=== PATIENT | female | born 1945 | race Caucasian/White ===

== ENCOUNTER → 2016-07-09 | Outpatient (CLI) | payer MEDICARE ==
[~2016-07-09] MED LIST: /ESOM40CA OR; ASPI325T5 PO; AVAP75TA5 OR; FOLI1TAB OR; LASI40TA OR; LEVO25TA2 OR; LORTTAB5 PO; METH2.5T OR; MOM30SS PO; PAXI20TA OR; POLYBTL PO; RESTASIS OU; SENO8.6T9 PO; SIMV10TA2 OR; SPIR25TA2 OR
[2016-07-09 18:16] LABS: BASO % 0.3 % (0.0-1.0); EOS # 0.4 K/mm3 (0.0-0.50); EOS % 5.2 % (0.0-3.0); LARGE UNSTAINED CELL # 0.2 K/mm3 (0.0-0.4); LARGE UNSTAINED CELL % 2.4 % (0.0-4.0); LYMPH # 2.3 K/mm3 (1.5-4.5); MEAN CORPUSCULAR HEMOGLOBIN 27.4 pg (27.0-33.0); MEAN CORPUSCULAR HGB CONC 33.4 g/dl (32.0-36.5); MONO # 0.5 K/mm3 (0.0-0.8); MONO % 5.5 % (0.0-5.0); NEUTROPHILS # 5.3 K/mm3 (1.8-7.7); NEUTROPHILS % 60.6 % (36.0-66.0); PLATELET COUNT, AUTOMATED 327 k/mm3 (150-450); RED CELL DISTRIBUTION WIDTH 14.1 % (11.5-14.5); WHITE BLOOD COUNT 8.7 K/mm3 (4.0-10.0)
[2016-07-09 18:45] LABS: ALBUMIN 4.2 GM/DL (3.2-5.2); CREATININE FOR GFR 0.97 MG/DL (0.55-1.02); GLOMERULAR FILTRATION RATE 59.9 (>39)
== END ==
LOC: M WUC 13:05
PROVIDERS: ATTEND Internal Medicine Rheumatology
DX: M06.09 Rheumatoid arthritis without rheumatoid factor, multiple sites (principal); Z79.899 Other long term (current) drug therapy

== ENCOUNTER → 2016-09-04 | Outpatient (CLI) | payer MEDICARE ==
--- NOTE | 2016-09-04 16:39 | REP ---
CERVICAL SPINE, EIGHT VIEWS: HISTORY: Cervicalgia. There is no acute fracture. The C4-5 through C7-T1 intervertebral discs are decreased in height consistent with disc degeneration. Osteophytes are present on C4 through 7. There is narrowing of the C4 through 6 neural foramina secondary to uncinate process hypertrophy. There are 2 mm of anterior subluxation of C3 on 4 with flexion. This is not seen in neutral or extension radiographs. IMPRESSION: Degenerative change as described above. Signed by Kodak Mendoza MD 09/04/2016 04:42 P
== END ==
LOC: M ADAMS 14:50
PROVIDERS: ATTEND Physician Assistant Medical
DX: M54.2 Cervicalgia (principal)

== ENCOUNTER → 2016-09-12 | Outpatient (REF) | payer MEDICARE ==
[2016-09-12 13:10] LABS: BASO # 0.1 K/mm3 (0.0-0.2); BASO % 0.8 % (0.0-1.0); EOS # 0.4 K/mm3 (0.0-0.50); LARGE UNSTAINED CELL # 0.1 K/mm3 (0.0-0.4); LARGE UNSTAINED CELL % 1.7 % (0.0-4.0); LYMPH # 1.6 K/mm3 (1.5-4.5); LYMPH % 19.5 % (24.0-44.0); MEAN CORPUSCULAR HEMOGLOBIN 28.1 pg (27.0-33.0); MEAN CORPUSCULAR VOLUME 82.7 fl (80.0-96.0); MONO # 0.6 K/mm3 (0.0-0.8); MONO % 7.4 % (0.0-5.0); NEUTROPHILS # 4.9 K/mm3 (1.8-7.7); NEUTROPHILS % 65.5 % (36.0-66.0); PLATELET COUNT, AUTOMATED 323 k/mm3 (150-450); RED CELL DISTRIBUTION WIDTH 15.9 % (11.5-14.5); WHITE BLOOD COUNT 7.5 K/mm3 (4.0-10.0)
[2016-09-12 13:33] LABS: VITAMIN B12 LEVEL 584 PG/ML (247-911)
[2016-09-12 13:38] LABS: ALBUMIN/GLOBULIN RATIO 1.33 (1.00-1.93); ALKALINE PHOSPHATASE 73 U/L (45-117); ALT/SGPT 36 U/L (12-78); ANION GAP 11 MEQ/L (8-16); AST/SGOT 30 U/L (15-37); BILIRUBIN,TOTAL 0.7 MG/DL (0.2-1.0); BLOOD UREA NITROGEN 22 MG/DL (7-18); CALCIUM LEVEL 9.4 MG/DL (8.8-10.2); CARBON DIOXIDE LEVEL 30 MEQ/L (21-32); CHLORIDE LEVEL 99 MEQ/L (98-107); CHOLESTEROL LEVEL 175 MG/DL (<200); CREATININE FOR GFR 0.95 MG/DL (0.55-1.02); FERRITIN 71 NG/ML (8-252); GLOMERULAR FILTRATION RATE > 60.0 (>39); GLUCOSE, FASTING 110 MG/DL (83-110); PERCENT SATURATION 27.2 % (13.2-37.4); POTASSIUM SERUM 4.4 MEQ/L (3.5-5.1); SODIUM LEVEL 140 MEQ/L (136-145); TOTAL IRON BINDING CAPACITY 371 UG/DL (250-450); TRIGLYCERIDES LEVEL 166 MG/DL (<150)
[2016-09-13 10:24] LABS: PRETREATED FOLATE FOR RBCFOL 17.9 NG/ML
== END ==
LOC: M SFHCPLAZ 09:30
PROVIDERS: ATTEND Family Medicine
DX: D50.9 Iron deficiency anemia, unspecified (principal); R73.01 Impaired fasting glucose; E03.9 Hypothyroidism, unspecified; E55.9 Vitamin D deficiency, unspecified

== ENCOUNTER 2016-09-23 10:01 | Outpatient (CLI) | payer MEDICARE ==
[~2016-09-23] VITALS: Ht 162.6 cm; Wt 80.8 kg
[2016-09-23] MEDS ORDERED: ZOLEDRONIC ACID 5 MG in APPROPRIATE DILUENT 1 EA IV ONE (10:15)
== END 2016-09-23 10:55 | disposition home or self-care (01) ==
LOC: M INFU 10:01
PROVIDERS: ATTEND Family Medicine
DX: M81.0 Age-related osteoporosis without current pathological fracture (principal); Z79.899 Other long term (current) drug therapy; Z79.01 Long term (current) use of anticoagulants
CPT/HCPCS: 96365; J3489

== ENCOUNTER → 2016-09-26 | Outpatient (CLI) | payer MEDICARE ==
[2016-09-26 17:13] LABS: ALBUMIN 3.9 GM/DL (3.2-5.2); ALT/SGPT 28 U/L (12-78); CREATININE FOR GFR 0.81 MG/DL (0.55-1.02); GLOMERULAR FILTRATION RATE > 60.0 (>39)
[2016-09-26 18:26] LABS: BASO % 0.4 % (0.0-1.0); EOS # 0.4 K/mm3 (0.0-0.50); EOS % 5.9 % (0.0-3.0); LARGE UNSTAINED CELL # 0.2 K/mm3 (0.0-0.4); LARGE UNSTAINED CELL % 2.1 % (0.0-4.0); LYMPH # 1.8 K/mm3 (1.5-4.5); LYMPH % 23.8 % (24.0-44.0); MEAN CORPUSCULAR HEMOGLOBIN 27.9 pg (27.0-33.0); MEAN CORPUSCULAR HGB CONC 33.3 g/dl (32.0-36.5); MEAN CORPUSCULAR VOLUME 83.8 fl (80.0-96.0); MONO # 0.6 K/mm3 (0.0-0.8); MONO % 7.4 % (0.0-5.0); NEUTROPHILS # 4.5 K/mm3 (1.8-7.7); NEUTROPHILS % 60.5 % (36.0-66.0); PLATELET COUNT, AUTOMATED 337 k/mm3 (150-450); RED CELL DISTRIBUTION WIDTH 16.1 % (11.5-14.5); WHITE BLOOD COUNT 7.4 K/mm3 (4.0-10.0)
== END ==
LOC: M WUC 11:04
PROVIDERS: ATTEND Internal Medicine Rheumatology
DX: M06.09 Rheumatoid arthritis without rheumatoid factor, multiple sites (principal); Z79.899 Other long term (current) drug therapy

== ENCOUNTER → 2016-10-07 | Outpatient (CLI) | payer MEDICARE, MEDICAID ==
[2016-10-10 00:08] LABS: Lyme Disease IgG/IgM Antibodie <0.91 ISR (0.00-0.90); Lyme Disease IgM Ab Quantitati <0.80 index (0.00-0.79)
== END ==
LOC: M LAB 15:49
PROVIDERS: ATTEND Internal Medicine Rheumatology
DX: R53.83 Other fatigue (principal)

== ENCOUNTER → 2016-10-28 | Outpatient (CLI) | payer MEDICARE, MEDICAID ==
[2016-10-28 17:20] LABS: BASO % 0.3 % (0.0-1.0); EOS # 0.5 K/mm3 (0.0-0.50); EOS % 7.9 % (0.0-3.0); LARGE UNSTAINED CELL # 0.1 K/mm3 (0.0-0.4); LARGE UNSTAINED CELL % 2.1 % (0.0-4.0); LYMPH # 1.9 K/mm3 (1.5-4.5); LYMPH % 28.6 % (24.0-44.0); MEAN CORPUSCULAR HEMOGLOBIN 28.7 pg (27.0-33.0); MEAN CORPUSCULAR VOLUME 84.6 fl (80.0-96.0); MONO # 0.4 K/mm3 (0.0-0.8); MONO % 5.7 % (0.0-5.0); NEUTROPHILS # 3.6 K/mm3 (1.8-7.7); NEUTROPHILS % 55.4 % (36.0-66.0); PLATELET COUNT, AUTOMATED 317 k/mm3 (150-450); RED CELL DISTRIBUTION WIDTH 15.8 % (11.5-14.5); WHITE BLOOD COUNT 6.5 K/mm3 (4.0-10.0)
[2016-10-28 19:22] LABS: ALBUMIN 3.5 GM/DL (3.2-5.2); ALT/SGPT 22 U/L (12-78); GLOMERULAR FILTRATION RATE > 60.0 (>39)
== END ==
LOC: M WUC 14:23
PROVIDERS: ATTEND Internal Medicine Rheumatology
DX: M06.09 Rheumatoid arthritis without rheumatoid factor, multiple sites (principal); Z79.899 Other long term (current) drug therapy

== ENCOUNTER → 2017-01-13 | Outpatient (CLI) | payer MEDICARE, MEDICAID ==
[~2017-01-13] MED LIST changes: +ASPI1TAB PO; +CALCTAB68 PO; +COUM2.5T17 PO; +LEVO100T5 PO; +MOME50SP; +PERC5TAB12 PO; +PROT1TAB2 PO; +SYST1SOL OU; +VOLT1GEL15 TOP
[2017-01-13 20:03] LABS: ALBUMIN 3.6 GM/DL (3.2-5.2); ALT/SGPT 28 U/L (12-78); CREATININE FOR GFR 0.95 MG/DL (0.55-1.02); GLOMERULAR FILTRATION RATE > 60.0 (>39)
[2017-01-13 20:08] LABS: BASO % 0.5 % (0.0-1.0); EOS # 0.2 K/mm3 (0.0-0.50); EOS % 3.1 % (0.0-3.0); LARGE UNSTAINED CELL # 0.1 K/mm3 (0.0-0.4); LARGE UNSTAINED CELL % 1.7 % (0.0-4.0); LYMPH % 22.3 % (24.0-44.0); MEAN CORPUSCULAR HEMOGLOBIN 28.9 pg (27.0-33.0); MEAN CORPUSCULAR HGB CONC 33.5 g/dl (32.0-36.5); MEAN CORPUSCULAR VOLUME 86.1 fl (80.0-96.0); MONO # 0.8 K/mm3 (0.0-0.8); MONO % 9.3 % (0.0-5.0); NEUTROPHILS # 5.2 K/mm3 (1.8-7.7); NEUTROPHILS % 63.1 % (36.0-66.0); PLATELET COUNT, AUTOMATED 351 k/mm3 (150-450); RED CELL DISTRIBUTION WIDTH 15.4 % (11.5-14.5); WHITE BLOOD COUNT 8.3 K/mm3 (4.0-10.0)
== END ==
LOC: M WUC 15:52
PROVIDERS: ATTEND Internal Medicine Rheumatology
DX: M06.09 Rheumatoid arthritis without rheumatoid factor, multiple sites (principal); Z79.899 Other long term (current) drug therapy

== ENCOUNTER → 2017-01-30 | Outpatient (REF) | payer MEDICARE, MEDICAID ==
[2017-01-30 14:15] LABS: BASO # 0.1 K/mm3 (0.0-0.2); BASO % 0.7 % (0.0-1.0); EOS # 0.3 K/mm3 (0.0-0.50); EOS % 3.7 % (0.0-3.0); LARGE UNSTAINED CELL # 0.1 K/mm3 (0.0-0.4); LARGE UNSTAINED CELL % 1.7 % (0.0-4.0); LYMPH % 23.3 % (24.0-44.0); MEAN CORPUSCULAR HEMOGLOBIN 28.4 pg (27.0-33.0); MEAN CORPUSCULAR HGB CONC 33.2 g/dl (32.0-36.5); MEAN CORPUSCULAR VOLUME 85.4 fl (80.0-96.0); MONO # 0.6 K/mm3 (0.0-0.8); NEUTROPHILS # 5.1 K/mm3 (1.8-7.7); NEUTROPHILS % 63.7 % (36.0-66.0); PLATELET COUNT, AUTOMATED 335 k/mm3 (150-450); RED CELL DISTRIBUTION WIDTH 15.2 % (11.5-14.5)
[2017-01-30 15:09] LABS: ALBUMIN 3.9 GM/DL (3.2-5.2); ALBUMIN/GLOBULIN RATIO 1.22 (1.00-1.93); ALKALINE PHOSPHATASE 65 U/L (45-117); ALT/SGPT 27 U/L (12-78); ANION GAP 9 MEQ/L (8-16); AST/SGOT 17 U/L (15-37); BILIRUBIN,TOTAL 0.7 MG/DL (0.2-1.0); BLOOD UREA NITROGEN 19 MG/DL (7-18); CARBON DIOXIDE LEVEL 28 MEQ/L (21-32); CHLORIDE LEVEL 96 MEQ/L (98-107); CREATININE FOR GFR 0.83 MG/DL (0.55-1.02); FREE T4 1.54 NG/DL (0.76-1.46); GLOMERULAR FILTRATION RATE > 60.0 (>39); GLUCOSE, FASTING 77 MG/DL (83-110); POTASSIUM SERUM 4.9 MEQ/L (3.5-5.1); SODIUM LEVEL 133 MEQ/L (136-145); TOTAL PROTEIN 7.1 GM/DL (6.4-8.2)
== END ==
LOC: M SFHCPLAZ 12:54
PROVIDERS: ATTEND Family Medicine
DX: R73.01 Impaired fasting glucose (principal); E03.9 Hypothyroidism, unspecified

== ENCOUNTER → 2017-02-06 | Outpatient (REF) | payer MEDICARE, MEDICAID | LOC: M SFHCPLAZ 13:27 | PROVIDERS: ATTEND Family Medicine | DX: N39.0 Urinary tract infection, site not specified (principal) | CPT/HCPCS: 81001; 87086; G0463 ==

== ENCOUNTER → 2017-02-12 | Outpatient (CLI) | payer MEDICARE, MEDICAID ==
--- NOTE | 2017-02-12 16:17 | REP ---
ULTRASOUND URINARY BLADDER: Real-time sonographic evaluation of the urinary bladder performed. The bladder measures 6.4 x 7.7 x 5.5 cm for a total volume of 177 mL. No mass or calculus is seen. There are bilateral ureteral jets in the urinary bladder with Doppler color evaluation. Postvoid residual is 38 mL which is 21% of the original volume. IMPRESSION: Prevoid urinary bladder volume 177 mL, postvoid 38 mL, 21% postvoid residual. No mass or calculus. Signed by Brent Garza MD 02/13/2017 01:27 P
== END ==
LOC: M RAD 13:42
PROVIDERS: ATTEND Family Medicine
DX: R35.0 Frequency of micturition (principal)

== ENCOUNTER → 2017-04-17 | Outpatient (CLI) | payer MEDICARE, MEDICAID ==
--- NOTE | 2017-04-17 11:55 | ECGEPIP ---
Stationary ECG Study [facility] Test Date: 2017-04-17 Pat Name: CLAY RODRÍGUEZ Department: Room: - Gender: F Consumer Credit Counselor: LUISA : 1945 Requested By: Alexei Alegre Order Number: [id number] Reading MD: Priscilla Benedict Measurements Intervals [place] Rate: 78 P: 28 SC: 205 QRS: -24 QRSD: 122 T: 61 QT: 390 QTc: 447 Interpretive Statements SINUS RHYTHM first degree block NEW LAE LEFT AXIS DEVIATION MODERATE INTRAVENTRICULAR CONDUCTION DELAY NONSPECIFIC ST T-WAVE ABNORMALITY COMPARED TO 01/28/13 Electronically Signed On 04-17-2017 11:54:51 EDT by Priscilla Benedict
[2017-04-17 12:04] LABS: MEAN CORPUSCULAR HEMOGLOBIN 27.9 pg (27.0-33.0); MEAN CORPUSCULAR HGB CONC 33.7 g/dl (32.0-36.5); MEAN CORPUSCULAR VOLUME 82.8 fl (80.0-96.0); RED CELL DISTRIBUTION WIDTH 15.4 % (11.5-14.5); WHITE BLOOD COUNT 9.5 10^3/uL (4.0-10.0)
[2017-04-17 12:18] LABS: INR 1.01
--- NOTE | 2017-04-17 12:32 | REP ---
Chest two views HISTORY: Preop Comparison: 04/04/2016 A minimal increase in interstitial markings is present in the lungs consistent with chronic interstitial fibrosis. The cardiac silhouette is enlarged. The pulmonary vasculature is normal in appearance. There are old compression fractures of two lower thoracic vertebral bodies. IMPRESSION: 1. Chronic interstitial fibrosis. 2. Cardiomegaly. Signed by Kodak Mendoza MD 04/17/2017 12:23 P
[2017-04-17 12:40] LABS: ALBUMIN 4.2 GM/DL (3.2-5.2); ALBUMIN/GLOBULIN RATIO 1.17 (1.00-1.93); ALKALINE PHOSPHATASE 71 U/L (45-117); ALT/SGPT 35 U/L (12-78); ANION GAP 6 MEQ/L (8-16); AST/SGOT 27 U/L (15-37); BILIRUBIN,TOTAL 0.9 MG/DL (0.2-1.0); BLOOD UREA NITROGEN 23 MG/DL (7-18); CALCIUM LEVEL 9.4 MG/DL (8.8-10.2); CARBON DIOXIDE LEVEL 31 MEQ/L (21-32); CHLORIDE LEVEL 99 MEQ/L (98-107); CREATININE FOR GFR 0.92 MG/DL (0.55-1.02); GLOMERULAR FILTRATION RATE > 60.0 (>39); GLUCOSE, FASTING 89 MG/DL (83-110); POTASSIUM SERUM 4.4 MEQ/L (3.5-5.1); SODIUM LEVEL 136 MEQ/L (136-145); TOTAL PROTEIN 7.8 GM/DL (6.4-8.2)
== END ==
LOC: M ADMPAT 10:17
PROVIDERS: ATTEND Orthopaedic Surgery
DX: Z01.818 Encounter for other preprocedural examination (principal); M17.11 Unilateral primary osteoarthritis, right knee; I51.7 Cardiomegaly; J84.10 Pulmonary fibrosis, unspecified; R94.31 Abnormal electrocardiogram [ECG] [EKG]; Z79.01 Long term (current) use of anticoagulants; Z96.9 Presence of functional implant, unspecified; Z98.890 Other specified postprocedural states; Z79.899 Other long term (current) drug therapy

== ENCOUNTER 2017-04-28 09:25 | Inpatient (IN) | payer MEDICARE, MEDICAID ==
[2017-04-17 11:22] VITALS: BP 104/70
[2017-04-28] VITALS (8 sets, daily range): BP systolic 115–138; BP diastolic 68–83; O2SAT 94–99
[~2017-04-28] VITALS: Ht 162.6 cm; Wt 77.6 kg
--- NOTE | 2017-04-28 08:28 | HPE ---
DATE OF ADMISSION: 04/28/2017 HISTORY OF PRESENT ILLNESS: This is a pleasant female with continuing symptomatic right knee osteoarthritis. She consented for a right total knee arthroplasty per Dr. Alexei Alegre. Medical optimization was performed by Dr. Shah, which we are still awaiting a clearance note, although the patient states she was optimized. X-ray is consistent with advanced osteoarthritis. ALLERGIES: Hay fever. MEDICATIONS: - methotrexate 2.5 mg - folic acid 1 mg. - aspirin 81 mg - Paxil 20 mg - Lasix 40 mg - Avapro 75 mg - calcium 600-D 600, 400 mg units - Reclast 5/100 mL - Xanax 0.25 mg - Zocor 10 mg - Drisdol 50,000 units - Nasonex 50 mcg/HCT - Astepro 0.15% - Colace 100 mg - MiraLAX 3350 NF - levothyroxine sodium 100 mcg - Prevacid 30 mg - Protonix 40 mg MEDICAL PROBLEM LIST: Symptomatic right knee osteoarthritis. Essential hypertension Hypercholesterolemia Aortic valve disorder Dilation of aorta Obstructive sleep apnea Anxiety Depression Thyroid disease SOCIAL HISTORY: Left foot Cholecystectomy Right and left knees FAMILY HISTORY: Positive for hypertension, cancer, heart disease. SOCIAL HISTORY: Denies smoking. Rarely consumes alcohol, may be a glass of wine in the evening. Denies elicit drugs. REVIEW OF SYSTEMS: Denies chest pain shortness of breath, dyspnea on exertion, fever, chills, malaise, upper respiratory, urinary tract symptoms. PHYSICAL EXAMINATION: Height 5 foot 2 inches, weight 170, temperature 97.6, blood pressure 122/74, pulse 72, respirations 16. This a pleasant overweight female in no acute distress. She is alert and oriented times three. Mood and affect are appropriate. She is ambulating without overt antalgia. Noted favoring the left lower extremity. Right knee positive lateral joint line tenderness with crepitus about the knee through flexion and extension. PFJ is congruent static and dynamic. She is stable throughout the quad collateral ligaments of the patella, the quad tendons without palpable defects. No popliteal fossa mass. Right hip range of motion was not limited or irritable through internal and external range of motion. Bowel sounds times four are soft, nontender. Chest regular rate and rhythm. Lungs clear to auscultation. Chest rises symmetrically. Neck supple. Negative jugular venous distention or bruits. Normocephalic. Chest x-ray: Chronic interstitial fibrosis. Cardiomegaly. As read via [facility] by Dr. Mnedoza 04/17/2017. EKG: Sinus rhythm, first degree AV block. New left axis deviation, moderate intraventricular conduction delay, nonspecific ST/T wave abnormality as read by Dr. Farrell 04/17/2017. Nasal sinus cultures were unremarkable. LABS: Leukocyte esterase urine auto 1+, WBC urine auto 11, BUN 23, anion gap 6. Red cell distribution was 15.4. GFR greater than 60, otherwise labs within normal limits. IMPRESSION: 1. Symptomatic right knee osteoarthritis. 2. Patient consented for right total knee arthroplasty per Dr. Alexei Alegre. 3. Medical optimization with Dr. Shah, which are awaiting his note. 4. On-call to operative room 2 grams IV Kefzol in OR. 5. Sequential compression devices (SCDs) and thromboembolic deterrent stockings (TEDS) in OR. 6. Consent is up to date. [facility]
[2017-04-28] MEDS: IRBESARTAN 75MG TABLET PO SCH (09:00)
[2017-04-28] MEDS: FOLIC ACID 1 MG TAB PO SCH (09:00)
[~2017-04-28 09:25] MED LIST changes: -COUM2.5T17 PO; -PERC5TAB12 PO
[2017-04-28] MEDS ORDERED: LR 1,000 ML IV ONE (09:45)
[2017-04-28] MEDS ORDERED: LIDOCAINE 1% MDV 20ML VIAL SC PRN (09:45)
[2017-04-28] MEDS ORDERED: fentaNYL 100 MCG/2 ML INJECTION (J3010) As Ordered ONE ×2 (11:05→11:08)
[2017-04-28] MEDS ORDERED: MIDAZOLAM INJ 2 MG/2 ML VIAL (J2250) As Ordered ONE ×2 (11:05→11:09)
[2017-04-28] MEDS ORDERED: LIDOCAINE 2% INJ 100 MG/5 ML SDV (FOR ANES.) As Ordered ONE (11:08)
[2017-04-28] MEDS ORDERED: PROPOFOL 200 MG/20 ML VIAL As Ordered ONE (11:08)
[2017-04-28] MEDS ORDERED: dexameTHASONE 4 MG/ML 1ML VIAL (J1100) As Ordered ONE (11:09)
[2017-04-28] MEDS ORDERED: ONDANSETRON 4MG/2ML VIAL (J2405) As Ordered ONE (11:09)
[2017-04-28] MEDS: MIDAZOLAM INJ 2 MG/2 ML VIAL (J2250) IV PRN ×2 (11:35→11:38)
[2017-04-28] MEDS: fentaNYL 100 MCG/2 ML INJECTION (J3010) IV PRN ×2 (11:35→11:40)
[2017-04-28] MEDS ORDERED: TRANEXAMIC ACID 100 MG/ML 10ML VIAL As Ordered ONE (12:17)
[2017-04-28] MEDS ORDERED: ceFAZolin 1GM INJ (J0690) As Ordered ONE (12:17)
[2017-04-28] MEDS ORDERED: BUPIVACAINE LIPOSOME/PF 1.3% 20 ML VIAL (13.3MG/ML)(EXPAREL) As Ordered ONE (12:18)
[2017-04-28] MEDS ORDERED: EPINEPHrine INJ 1 MG/ML 1ML AMP As Ordered ONE (12:18)
--- NOTE | 2017-04-28 12:32 | IPN ---
DATE: 04/28/2017 The patient is seen and examined. She wished to go ahead with a right total knee arthroplasty. Preoperative clearance was obtained. She understands the nature of this; the risks of bleeding, infection, damage to nerves, vessels, persistent pain, wear loosening, blood clots, medical problems, among others.
[2017-04-28] MEDS ORDERED: ROPIvacaine 0.5% 30 ML INJECTION (J2795) ONE (13:33)
[2017-04-28] MEDS ORDERED: LIDOCAINE 1% MDV 20ML VIAL ONE (13:33)
[2017-04-28] MEDS ORDERED: dexameTHASONE 10 MG/1 ML VIAL PRES.FREE (J1100) ONE (13:33)
[2017-04-28] MEDS ORDERED: PHENYLephrine HCL 500 MCG/5 ML (100MCG/ML) SYRINGE (J2370) As Ordered ONE (13:34)
[2017-04-28] MEDS ORDERED: MORPHINE 1MG/ML IN 0.9% NACL 100ML IV BAG As Ordered ONE (14:21)
[2017-04-28] MEDS ORDERED: ONDANSETRON 4MG/2ML VIAL (J2405) IV PRN ×3 (15:00→15:15)
[2017-04-28] MEDS ORDERED: fentaNYL 100 MCG/2 ML INJECTION (J3010) IV PRN (15:00)
[2017-04-28] MEDS ORDERED: LR 1,000 ML IV SCH ×2 (15:00)
[2017-04-28] MEDS ORDERED: NALBUPHINE HCL 10 MG/ML AMP (J2300) IV PRN (15:15)
[2017-04-28] MEDS ORDERED: MORPHINE 1MG/ML IN 0.9% NACL 100ML IV BAG IV PRN (15:15)
[2017-04-28] MEDS ORDERED: ACETAMINOPHEN TAB 650MG DOSE (2X325MG) PO PRN (15:15)
[2017-04-28] MEDS ORDERED: FLEET ENEMA PR PRN (15:15)
[2017-04-28] MEDS ORDERED: EPIDURAL/PCA KEYS XX PRN (15:15)
[2017-04-28] MEDS ORDERED: NALOXONE INJ 0.4 MG/1 ML VIAL (J2310) IV PRN (15:15)
[2017-04-28] MEDS ORDERED: diphenhydrAMINE INJ 50MG/ML VIAL (J1200) IV PRN (15:15)
--- NOTE | 2017-04-28 16:33 | RO ---
DATE OF PROCEDURE: 04/28/2017 PREOPERATIVE DIAGNOSIS: Right knee osteoarthritis. POSTOPERATIVE DIAGNOSIS: Right total knee arthroplasty using PFC rotating platform, posterior stabilized size three femur, 2.5 tibia and 12.5 polyethylene with 32 patellar button. SURGEON: Alexei Alegre MD WELDER FITTER HELPER: Michael Ross ANESTHESIA: Spinal ESTIMATED BLOOD LOSS: Less than 50. COMPLICATIONS: None. INDICATION: 72-year woman has had some persistent gradually worsening right knee pain with some valgus alignment. She has been refractory to conservative management and wished to go ahead with surgical treatment. She understood the nature this the risks of bleeding, infection, damage to nerves, vessels, persistent pain, wear, loosening, blood clots, medical problems, among others. DESCRIPTION OF PROCEDURE: The patient taken to the operating room and placed in supine position after spinal anesthesia was induced. The right lower extremity was prepped and draped in the usual sterile fashion. A tourniquet was inflated after the time out was performed and I created a longitudinal incision over the anterior aspect of the knee. Sharp dissection was carried out through the medial parapatellar retinaculum. I everted the patella, flexed the knee, used the canal initiating reamer on the femoral side then set the guide at 7 degrees of valgus, 10 mm cut and pinned this in place on the end of the femur. The dietitian assistant made the distal femoral cut which seemed to be appropriate. I protected the soft tissues at all times. I sized the femur to be a 3, the external rotation guide was placed and pinned, then the four-in-one cutting block was placed. This was secured down and the remaining four cuts were made protecting soft tissues. I then placed the tibial alignment guide and the appropriate of valgus and posterior slope, pinned this in place at about 8 mm off of the high side, which seemed to be an appropriate cut. I then pinned this, checked with the external alignment guide and was happy with the alignment and made the proximal tibia cut removing excess bone. I also removed soft tissue and osteophytes from either side of the knee. The femoral box cutting guide, size three was then placed. I elected to use a posterior stabilizer because her valgus alignment and it allows for easier tissue balancing. The size 3 box cutting device was pinned in place. The remaining cuts were made and this bone was removed from the box. I then sized the tibia to be at 2.5. This was drilled and broached and then the trial components were placed and overall excellent fit and alignment were noted. Excellent range of motion was noted. Full extension was obtained. I had also used the spacer blocks prior to that and was very happy with the soft tissue balance. I then freehand cut the patella removing about 7 mm of bone, sizing it to be a 32. The drill holes were placed. The trial button was placed. I put the knee through a range of motion with the 12.5 polyethylene and was very pleased with the alignment and position of the components and range of motion. I then removed the trial components. The dietitian assistant prepared the bone cement in the modern technique. I irrigated the bony surfaces copiously and then cemented in the tibial tray, followed by the femur and then the polyethylene was placed. I removed all the excess bone cement and I made sure that the components were impacted nicely. I then clamped on the patella and held this in place until the cement hardened. I had irrigated multiple times prior to this and irrigated before placing the components and dried the bony surfaces carefully. Again irrigated now, also had placed the Exparel solution, injected it into the periosteum and into the capsule and extensor mechanism. Some just prior to placement of the components and the rest of it afterwards. Final irrigation was performed of the deep tissues. TXA solution was placed. I then closed the deep layer with interrupted #1 Vicryl sutures, followed by the running Stratafix #1 suture and this was started in the midpoint and we worked our way in both directions. The subcu was closed with #2-0 Vicryl and the skin with jassi. Sterile dressing was applied. Tourniquet was deflated and she was taken to recovery in stable condition. No known complications. PLAN: The plan will be routine postop for a knee replacement. The dietitian assistant was instrumental in holding retractors, making one of the bone cuts and assisting in wound closure.
[2017-04-28] MEDS ORDERED: WARFARIN SOD 5 MG TAB PO ONE (17:00)
[2017-04-28] MEDS: FUROSEMIDE 40 MG TAB PO SCH (17:00)
[2017-04-28] MEDS: SIMVASTATIN 10 MG TAB PO SCH (21:23)
[2017-04-28] MEDS: PANTOPRAZOLE 40MG TAB (PROTONIX) PO SCH (21:23)
--- NOTE | 2017-04-28 23:49 | CR.PDOC ---
[facility] Consultation Consultation DATE OF CONSULTATION: 04/28/2017 PRIMARY CARE PHYSICIAN: Dr. Shah REFERRING PROVIDER: Dr. Alexei Alegre REASON FOR CONSULTATION/CHIEF COMPLAINT: Medical management. HISTORY OF PRESENT ILLNESS: This is a 72-year-old female with a past medical history of symptomatic right knee osteoarthritis, hypertension, hypercholesterolemia, BE, depression and anxiety, hypothyroidism, rheumatoid arthritis, chronic diastolic heart failure, GERD. Patient had a total right knee arthroplasty on 04/28/[address] Alexei Alegre. Patient was seen after surgery on the medical unit. Patient's pain was well-controlled. She had no medical concerns at the time. Patient was ready to order dinner. She brought her CPAP for use at night. ALLERGIES: Please see below. HOME MEDICATIONS: Please see below. PAST MEDICAL HISTORY: osteoarthritis, hypertension, hypercholesterolemia, BE, depression, anxiety, hypothyroidism, rheumatoid arthritis, chronic diastolic heart failure, GERD. PAST SURGICAL HISTORY: cholecystectomy in 1997, right knee arthroscopy 2010, left knee arthroscopy 2015 , both eyes cataract 2015, left ankle fracture repair 2012 FAMILY HISTORY: Father: 71 years, prostate cancer Mother: 30 years, heart disease Siblings: Alive 71 years, heart disease SOCIAL HISTORY: Marital status: Children: 3 Tobacco use:Nonsmoker ETOH: Occasional Illicit drug use: Denies drug use IV drug use: Denies drug use REVIEW OF SYSTEMS: CONSTITUTIONAL: Denies fevers, chills. HEENT: Denies head trauma, pain. CARDIOVASCULAR: Denies chest pain, palpitations. RESPIRATORY: Denies dyspnea, shortness of breath. GENITOURINARY: Denies dysuria, incontinence. MUSCULOSKELETAL: History of osteoarthritis, rheumatoid arthritis. GASTROINTESTINAL: Denies abdominal pain. SKIN: Denies rashes. NEUROLOGICAL: No numbness or weakness. PSYCHIATRIC: History of depression and anxiety. ENDOCRINE: History of hypothyroidism. HEMATOLOGIC/LYMPHATIC: No abnormal bleeding or bruising. PHYSICAL EXAMINATION: VITAL SIGNS: Please see below. GENERAL APPEARANCE:Sitting upright in hospital bed, in no acute distress. HEENT: Head: normocephalic, atraumatic. Eyes: EOMI. Throat: Mucous membranes are moist RESPIRATORY: Clear to auscultation bilaterally. No wheezes CARDIOVASCULAR: Regular rate and rhythm, no murmurs appreciated. ABDOMEN: Normal active bowel sounds, nontender EXTREMITIES: Right knee surgical incision intact, dressing is dry. 2+ pedal pulses bilaterally NEUROLOGICAL: No deficits. PSYCHIATRIC: No depression/anxiety. LABORATORY DATA: Please see below. ASSESSMENT/PLAN: 1. Postoperative right total knee arthroplasty, performed by Dr. Alexei Alegre on 04/28/2017. Pain management, rehabilitation, and bowel regimen will be managed by orthopedic surgery. 2. Chronic diastolic congestive heart failure. We'll continue home blood pressure medications with holding parameters. 3. Depression/anxiety. Continue patient on paroxetine. 4. Hypothyroidism. Continue patient on L-thyroxine 5. GERD. Continue patient on Protonix. 6. Rheumatoid arthritis. Patient receives methotrexate on Tuesdays. 7. BE. Continue patient on CPAP at night. 8. Hypercholesterolemia. Continue patient on Simvastatin. Vital Signs/I&O Vital Signs Date Time Temp Pulse Resp B/P (MAP) Pulse Ox O2 Delivery O2 Flow Rate FiO2 04/28/17 15:45 97.0 83 16 126/65 (85) 99 Nasal Cannula 2 I&O- Last 24 Hours up to 6 AM 04/29/17 05:59 Intake Total 1760 ml Output Total 350 ml Balance 1410 ml Allergies Coded Allergies: No Known Drug Allergy (Verified Allergy, Unknown, 04/28/17) Home Medications Scheduled Aspirin (Aspirin 81) 81 Mg Tab, 81 MG PO DAILY, #30 (Reported) Calcium/Vitamin D (Calcium 600 + D 600-400 mg-Unit) 1 Tab Tab, 1 TAB PO DAILY, ( Reported) Docusate Sod/Senna (Senokot S) 1 Tab Tab, 1 TAB PO BID, (Reported) Folic Acid (Folic Acid) 1 Mg Tab, 1 MG OR DAILY, (Reported) Furosemide (Lasix) 40 Mg Tab, 40 MG OR BID, (Reported) Irbesartan (Avapro) 75 Mg Tab, 75 MG OR DAILY, (Reported) Levothyroxine Sodium (Synthroid) 100 Mcg Tab, 100 MCG PO DAILY, (Reported) Methotrexate (Methotrexate) 2.5 Mg Tab, 15 MG OR 1XWK, #9 (Reported) friday Pantoprazole Sodium Sesquihydr (Protonix) 40 Mg Tab, 40 MG PO BID, #30 (Reported ) Paroxetine (Paxil) 20 Mg Tab, 20 MG OR DAILY, (Reported) Simvastatin (Simvastatin) 10 Mg Tab, 10 MG OR QHS, (Reported) Spironolactone (Spironolactone) 25 Mg Tab, 25 MG OR DAILY, (Reported) Scheduled PRN (Voltaren) 1 % Gel, 1 % TOP PRN PRN for PAIN, (Reported) Mometasone Furoate Monohydrate (Nasonex) 120 [place]/17 Gm Naspr, 1 SPRAY NA PRN PRN for NASAL CONGESTION, (Reported) Polyethylene Glycol (Miralax Powder Oral Soln) 255 Gm Pow, 1 PKT PO DAILYPRN PRN for CONSTIPATION, (Reported) Polyethylene Glycol (Systane 0.4-0.3 %) 15 Ml Erica, 1 DROP OU PRN PRN for DRY EYES, (Reported) GME ATTESTATION GME ATTESTATION My preceptor for this patient encounter was physically present in the building during the encounter and was fully available. As needed, all aspects of the patient interview, examination, medical decision making process, and medical care plan development were reviewed and approved by the preceptor. Preceptor is aware and concurs with the plan as stated in the body of this note and will attest to such by his/her cosignature. ATTENDING NOTE Patient was seen and examined in the evening of 04/28/17; she offered no complaints. The case was discussed with Dr. Granger and I agree with his note as documented. (KES) SILVIA GRANGER DO Apr 28, 2017 17:31 KAYLYNN ALONZO MD Apr 29, 2017 10:53
[2017-04-29] VITALS (8 sets, daily range): BP systolic 99–118; BP diastolic 56–70; O2SAT 92
[2017-04-29] MEDS: LEVOTHYROXINE 100MCG TABLET (0.1MG) PO SCH (05:05)
[2017-04-29] MEDS ORDERED: ONDANSETRON 4 MG TAB (S0181) PO PRN (06:45)
[2017-04-29 06:54] LABS: MEAN CORPUSCULAR HEMOGLOBIN 27.9 pg (27.0-33.0); MEAN CORPUSCULAR HGB CONC 33.1 g/dl (32.0-36.5); MEAN CORPUSCULAR VOLUME 84.4 fl (80.0-96.0); PLATELET COUNT, AUTOMATED 272 10^3/uL (150-450); RED CELL DISTRIBUTION WIDTH 15.1 % (11.5-14.5); WHITE BLOOD COUNT 15.4 10^3/uL (4.0-10.0)
[2017-04-29 07:08] LABS: INR 1.17
[2017-04-29] MEDS: MIRALAX *UNIT DOSE* 17GM PACKET PO SCH (08:18)
[2017-04-29] MEDS: PANTOPRAZOLE 40MG TAB (PROTONIX) PO SCH ×2 (08:19→21:17)
[2017-04-29] MEDS: MOM 30ML SUSPENSION UDC PO SCH (08:19)
[2017-04-29] MEDS: PERCOCET 5MG/325MG TAB PO PRN ×4 (08:19→21:18)
[2017-04-29] MEDS: IRBESARTAN 75MG TABLET PO SCH (08:19)
[2017-04-29] MEDS: FOLIC ACID 1 MG TAB PO SCH (08:20)
[2017-04-29] MEDS: PARoxetine 20 MG TAB PO SCH (08:20)
[2017-04-29] MEDS: SENOKOT S TAB PO SCH ×2 (08:20→21:17)
[2017-04-29] MEDS: FUROSEMIDE 40 MG TAB PO SCH ×2 (08:20→17:07)
--- NOTE | 2017-04-29 10:49 | REP ---
RIGHT KNEE, TWO VIEWS: Two views of the right knee are performed. There is a total knee prosthesis. It appears to be in good position. The osseous structures are intact. Metallic skin jassi are seen anteriorly. Signed by Brent Garza MD 04/30/2017 04:24 P
--- NOTE | 2017-04-29 10:51 | IPNPDOC ---
Subjective Date Seen The patient was seen on 04/29/17. Subjective Chief Complaint/HPI The patient is a 72-year-old female admitted with a reason for visit of Right Knee Arthritis. Assessment /Plan Problems (1) Osteoarthritis of right knee Problem Text: pain and treatment managed by Orthopedics. (2) Depression Status: Chronic Response to Treatment: Stable (3) Diastolic CHF Status: Chronic Response to Treatment: Stable Problem Specific Plan: Monitor Clinically (4) Hypothyroidism Status: Chronic Response to Treatment: Stable Problem Specific Plan: Monitor Clinically (5) GERD (gastroesophageal reflux disease) Status: Chronic Response to Treatment: Stable Problem Specific Plan: Monitor Clinically (6) Rheumatoid arthritis Status: Chronic Response to Treatment: Stable Problem Specific Plan: Monitor Clinically (7) BE (obstructive sleep apnea) Status: Chronic Response to Treatment: Stable Problem Specific Plan: Monitor Clinically (8) Hyperlipidemia Status: Chronic Response to Treatment: Stable Problem Specific Plan: Monitor Clinically Plan/VTE VTE Prophylaxis Ordered?: Yes (Warfarin per Ortho) VS, I&O, 24H, Fishbone Vital Signs/I&O Vital Signs Date Time Temp Pulse Resp B/P (MAP) Pulse Ox O2 Delivery O2 Flow Rate FiO2 04/29/17 09:46 20 04/29/17 08:19 112/67 04/29/17 04:30 97.2 81 95 Nasal Cannula 2.0 I&O- Last 24 Hours up to 6 AM 04/30/17 05:59 Intake Total 820 ml Output Total 500 ml Balance 320 ml Laboratory Data 24H LABS Laboratory Tests 2 04/29/17 06:25: Nucleated Red Blood Cells % (auto) 0.0, Prothrombin Time 15.1H, Prothromb Time International Ratio 1.17 CBC/BMP Laboratory Tests 04/29/17 06:25 Red Blood Count 4.37, Mean Corpuscular Volume 84.4, Mean Corpuscular Hemoglobin 27.9, Mean Corpuscular Hemoglobin Concent 33.1, Red Cell Distribution Width 15.1 H Kat Gleason RESEARCH HYDRAULIC ENGINEER Apr 29, 2017 10:51
[2017-04-29] MEDS ORDERED: WARFARIN SOD 5 MG TAB PO ONE (17:00)
[2017-04-29] MEDS: SIMVASTATIN 10 MG TAB PO SCH (21:17)
[2017-04-30] MEDS: PERCOCET 5MG/325MG TAB PO PRN ×3 (01:28→13:49)
[2017-04-30 06:00] VITALS: BP 116/64
[2017-04-30] MEDS: LEVOTHYROXINE 100MCG TABLET (0.1MG) PO SCH (06:04)
[2017-04-30 06:58] LABS: MEAN CORPUSCULAR HEMOGLOBIN 27.8 pg (27.0-33.0); MEAN CORPUSCULAR HGB CONC 32.5 g/dl (32.0-36.5); MEAN CORPUSCULAR VOLUME 85.6 fl (80.0-96.0); PLATELET COUNT, AUTOMATED 262 10^3/uL (150-450); RED CELL DISTRIBUTION WIDTH 15.4 % (11.5-14.5); WHITE BLOOD COUNT 9.7 10^3/uL (4.0-10.0)
[2017-04-30 07:08] LABS: INR 1.78
[2017-04-30] MEDS ORDERED: PERC5TAB12 PO (08:12)
[2017-04-30] MEDS ORDERED: COUM2.5T17 PO (08:12)
[2017-04-30] MEDS: MIRALAX *UNIT DOSE* 17GM PACKET PO SCH (08:18)
[2017-04-30] MEDS: FOLIC ACID 1 MG TAB PO SCH (08:19)
[2017-04-30] MEDS: MOM 30ML SUSPENSION UDC PO SCH (08:19)
[2017-04-30 08:20] VITALS: BP 116/64
[2017-04-30] MEDS: PARoxetine 20 MG TAB PO SCH (08:20)
[2017-04-30] MEDS: IRBESARTAN 75MG TABLET PO SCH (08:20)
[2017-04-30] MEDS: FUROSEMIDE 40 MG TAB PO SCH (08:20)
[2017-04-30] MEDS: SENOKOT S TAB PO SCH (08:20)
[2017-04-30] MEDS: PANTOPRAZOLE 40MG TAB (PROTONIX) PO SCH (08:21)
--- NOTE | 2017-05-05 15:40 | DSES ---
DATE OF ADMISSION: 04/28/2017 DATE OF DISCHARGE: 04/30/2017 ATTENDING PHYSICIAN: Dr. Alexei Alegre ADMISSION DIAGNOSIS: Osteoarthritis, right knee. OTHER DIAGNOSES: 1. Rheumatoid arthritis. 2. Diastolic congestive heart failure. 3. Hypertension. 4. Gastric reflux disease. 5. Elevated cholesterol. 6. Aortic valve disorder. 7. Dilation of the aorta. 8. Sleep apnea. 9. Anxiety. 10. Depression. 11. Hypothyroidism. DISCHARGE DIAGNOSIS: Osteoarthritis, right knee, status post right total knee arthroplasty. OPERATION PERFORMED: Right total knee arthroplasty. HISTORY: A 72-year-old female patient with progressively worsening right knee pain and stiffness. She failed to improve with conservative management. She was admitted for elective knee replacement on the right side. HOSPITAL COURSE: The patient was admitted on the day of surgery and underwent a right total knee arthroplasty which was uneventful. She did well in the postoperative period and was up with physical therapy per their protocol and her pain was controlled. On the day of discharge, she was doing well, weightbearing as tolerated on her right lower extremity. She will move her right knee to prevent stiffness. She will use adjusted dose Coumadin and thromboembolic-deterrent (SASCHA) stockings for 30 days postoperatively for deep vein thrombosis (DVT) prophylaxis. She will use oral pain medications for pain control. She will resume her preoperative medications and diet. She was given instructions to include but not limited to wound monitoring and activity limitations. She will followup in our office in 10-14 days for surgical followup. Please refer to the medical record for further details.
== END 2017-04-30 13:50 | disposition home health service (06) | DRG 470 ==
LOC: M OR 09:25 → M MS5PR 15:55
PROVIDERS: ADMIT Orthopaedic Surgery; ATTEND Orthopaedic Surgery
PROC: 0SRC0J9 Replacement of Right Knee Joint with Synthetic Substitute, Cemented, Open Approach (ICD-10-PCS; principal; 2017-04-28 11:45)
DX: M17.11 Unilateral primary osteoarthritis, right knee (principal); I50.32 Chronic diastolic (congestive) heart failure; Z79.82 Long term (current) use of aspirin; Z79.899 Other long term (current) drug therapy; I12.9 Hypertensive chronic kidney disease with stage 1 through stage 4 chronic kidney disease, or unspecified chronic kidney disease; E78.00 Pure hypercholesterolemia, unspecified; G47.33 Obstructive sleep apnea (adult) (pediatric); F32.9 Major depressive disorder, single episode, unspecified; F41.9 Anxiety disorder, unspecified; E03.9 Hypothyroidism, unspecified; K21.9 Gastro-esophageal reflux disease without esophagitis; M06.9 Rheumatoid arthritis, unspecified; E78.5 Hyperlipidemia, unspecified

== ENCOUNTER → 2017-05-01 | Outpatient (REF) | payer MEDICARE, MEDICAID ==
[~2017-05-01] MED LIST changes: +COUM2.5T17 PO; +PERC5TAB12 PO
[2017-05-01 14:54] LABS: INR 1.8
== END ==
LOC: M SHH 14:09
PROVIDERS: ATTEND Nurse Practitioner Family
DX: Z51.81 Encounter for therapeutic drug level monitoring (principal); Z79.01 Long term (current) use of anticoagulants

== ENCOUNTER → 2017-05-02 | Outpatient (REF) | payer MEDICARE, MEDICAID ==
[2017-05-02 15:38] LABS: ALBUMIN 3.3 GM/DL (3.2-5.2); ANION GAP 6 MEQ/L (8-16); BLOOD UREA NITROGEN 11 MG/DL (7-18); CALCIUM LEVEL 8.4 MG/DL (8.8-10.2); CARBON DIOXIDE LEVEL 32 MEQ/L (21-32); CHLORIDE LEVEL 97 MEQ/L (98-107); CREATININE FOR GFR 0.75 MG/DL (0.55-1.02); GLOMERULAR FILTRATION RATE > 60.0 (>39); GLUCOSE, FASTING 91 MG/DL (83-110); POTASSIUM SERUM 4.1 MEQ/L (3.5-5.1); SODIUM LEVEL 135 MEQ/L (136-145)
== END ==
LOC: M SHH 14:48
PROVIDERS: ATTEND Family Medicine
DX: N18.3 Chronic kidney disease, stage 3 (moderate) (principal); Z79.899 Other long term (current) drug therapy

== ENCOUNTER → 2017-05-05 | Outpatient (REF) | payer MEDICARE, MEDICAID | LOC: M SHH 13:21 | PROVIDERS: ATTEND Nurse Practitioner Family | DX: Z51.81 Encounter for therapeutic drug level monitoring (principal); Z79.01 Long term (current) use of anticoagulants ==

== ENCOUNTER → 2017-05-15 | Outpatient (REF) | payer MEDICARE, MEDICAID ==
[2017-05-15 13:08] LABS: INR 1.37
== END ==
LOC: M SHH 12:36
PROVIDERS: ATTEND Nurse Practitioner Family
DX: Z51.81 Encounter for therapeutic drug level monitoring (principal); Z79.01 Long term (current) use of anticoagulants

== ENCOUNTER → 2017-05-16 | Outpatient (REF) | payer MEDICARE, MEDICAID | LOC: M SHH 14:40 → M SFHCPLAZ 14:40 | PROVIDERS: ATTEND Family Medicine | DX: N39.0 Urinary tract infection, site not specified (principal); I10 Essential (primary) hypertension; E78.5 Hyperlipidemia, unspecified; G47.33 Obstructive sleep apnea (adult) (pediatric) ==

== ENCOUNTER → 2017-05-19 | Outpatient (REF) | payer MEDICARE, MEDICAID ==
[2017-05-19 15:19] LABS: INR 1.18
== END ==
LOC: M SHH 14:19 → M LAB REF 14:19
PROVIDERS: ATTEND Internal Medicine Infectious Disease
DX: Z79.01 Long term (current) use of anticoagulants (principal)

== ENCOUNTER → 2017-05-22 | Outpatient (REF) | payer MEDICARE, MEDICAID ==
[2017-05-22 14:24] LABS: INR 2.21
== END ==
LOC: M LAB REF 13:50 → M SHH 13:50
PROVIDERS: ATTEND Nurse Practitioner Family
DX: Z51.81 Encounter for therapeutic drug level monitoring (principal); Z79.01 Long term (current) use of anticoagulants

== ENCOUNTER → 2017-05-26 | Outpatient (REF) | payer MEDICARE, MEDICAID ==
[2017-05-26 12:19] LABS: INR 2.57
== END ==
LOC: M SHH 11:49 → M LABDRWAD 11:49
PROVIDERS: ATTEND Nurse Practitioner Family
DX: Z79.01 Long term (current) use of anticoagulants (principal)

== ENCOUNTER → 2017-06-04 | Outpatient (REF) | payer MEDICARE, MEDICAID ==
[2017-06-04 13:17] LABS: BASO # 0.1 10^3/uL (0.0-0.2); BASO % 0.5 % (0.0-1.0); EOS # 0.2 10^3/uL (0.0-0.50); EOS % 2.3 % (0.0-3.0); IMMATURE GRANULOCYTE % 0.4 % (0-0); LYMPH # 1.7 10^3/uL (1.5-4.5); LYMPH % 16.2 % (24.0-44.0); MEAN CORPUSCULAR HEMOGLOBIN 26.6 pg (27.0-33.0); MEAN CORPUSCULAR HGB CONC 31.8 g/dl (32.0-36.5); MEAN CORPUSCULAR VOLUME 83.7 fl (80.0-96.0); MONO # 0.7 10^3/uL (0.0-0.8); NEUTROPHILS # 7.6 10^3/uL (1.8-7.7); NEUTROPHILS % 73.6 % (36.0-66.0); PLATELET COUNT, AUTOMATED 364 10^3/uL (150-450); RED CELL DISTRIBUTION WIDTH 14.9 % (11.5-14.5); WHITE BLOOD COUNT 10.3 10^3/uL (4.0-10.0)
[2017-06-04 13:46] LABS: FREE T4 1.21 NG/DL (0.76-1.46); PERCENT SATURATION 17.3 % (13.2-45.0)
== END ==
LOC: M SFHCADAM 09:29
PROVIDERS: ATTEND Family Medicine
DX: D50.9 Iron deficiency anemia, unspecified (principal); E03.9 Hypothyroidism, unspecified; R73.01 Impaired fasting glucose; E78.2 Mixed hyperlipidemia

== ENCOUNTER → 2017-06-24 | Outpatient (CLI) | payer MEDICARE, MEDICAID ==
--- NOTE | 2017-06-24 15:39 | REPMRS ---
Patient History The patient states she has not had a clinical breast exam in over a year. Patient is postmenopausal. Family history of prostate cancer in father at age 72, breast cancer in paternal aunt, and prostate cancer in brother at age 60. Took unspecified hormones for 20 years. Digital Woman Screen Mammo: June 24, 2017 - Exam #: [id number] Bilateral CC and MLO view(s) were taken. Technologist: Mariah Andrade, Technologist Prior study comparison: June 17, 2016, digital woman screen mammo performed at [facility]. June 09, 2015, digital woman screen mammo performed at [facility]. FINDINGS: There are scattered fibroglandular densities. There has been no change in the appearance of the mammogram from the prior studies. There is a mild amount of residual fibroglandular tissue which is fairly symmetric. There is no interval development of dominant mass, architectural distortion, or clustered microcalcification suggestive of malignancy. ASSESSMENT: BI-RADS/ACR category 1 mammogram. Negative. Recommendation Routine screening mammogram in 1 year (for women over age 40). This mammogram was interpreted with the aid of an FDA-approved computer-aided dectection system. Electronically Signed By: Brent Garza MD 06/24/17 [id number]
== END ==
LOC: M WHC 14:03
PROVIDERS: ATTEND Family Medicine
DX: Z12.31 Encounter for screening mammogram for malignant neoplasm of breast (principal); Z78.0 Asymptomatic menopausal state; Z92.23 Personal history of estrogen therapy

== ENCOUNTER → 2017-07-17 | Outpatient (REF) | payer MEDICARE, MEDICAID ==
[2017-07-17 14:26] LABS: BASO # 0.1 10^3/uL (0.0-0.2); BASO % 0.7 % (0.0-1.0); EOS # 0.1 10^3/uL (0.0-0.50); EOS % 1.7 % (0.0-3.0); HEMATOCRIT 39.5 % (36.0-47.0); HEMOGLOBIN 12.9 g/dl (12.0-16.0); IMMATURE GRANULOCYTE % 0.2 % (0-0); LYMPH # 1.7 10^3/uL (1.5-4.5); LYMPH % 20.3 % (24.0-44.0); MEAN CORPUSCULAR HEMOGLOBIN 26.3 pg (27.0-33.0); MEAN CORPUSCULAR HGB CONC 32.7 g/dl (32.0-36.5); MEAN CORPUSCULAR VOLUME 80.6 fl (80.0-96.0); MONO # 0.5 10^3/uL (0.0-0.8); MONO % 5.8 % (0.0-5.0); NEUTROPHILS # 5.9 10^3/uL (1.8-7.7); NEUTROPHILS % 71.3 % (36.0-66.0); PLATELET COUNT, AUTOMATED 356 10^3/uL (150-450); RED CELL DISTRIBUTION WIDTH 15.6 % (11.5-14.5); WHITE BLOOD COUNT 8.3 10^3/uL (4.0-10.0)
[2017-07-17 15:09] LABS: ALBUMIN 4.1 GM/DL (3.2-5.2); ALT/SGPT 25 U/L (12-78); CREATININE FOR GFR 0.83 MG/DL (0.55-1.02); GLOMERULAR FILTRATION RATE > 60.0 (>39)
== END ==
LOC: M LAB REF 14:09
DX: M06.09 Rheumatoid arthritis without rheumatoid factor, multiple sites (principal); Z79.899 Other long term (current) drug therapy
CPT/HCPCS: 84460

== ENCOUNTER → 2017-10-07 | Outpatient (REF) | payer MEDICARE, MEDICAID ==
[2017-10-07 20:07] LABS: BASO # 0.1 10^3/uL (0.0-0.2); BASO % 0.6 % (0.0-1.0); EOS # 0.4 10^3/uL (0.0-0.50); EOS % 4.7 % (0.0-3.0); HEMATOCRIT 41.3 % (36.0-47.0); HEMOGLOBIN 13.3 g/dl (12.0-15.5); IMMATURE GRANULOCYTE % 0.4 % (0-3.0); LYMPH # 1.7 10^3/uL (1.5-4.5); LYMPH % 21.4 % (24.0-44.0); MEAN CORPUSCULAR HEMOGLOBIN 26.7 pg (27.0-33.0); MEAN CORPUSCULAR HGB CONC 32.2 g/dl (32.0-36.5); MEAN CORPUSCULAR VOLUME 82.9 fl (80.0-96.0); MONO # 0.8 10^3/uL (0.0-0.8); MONO % 9.6 % (0.0-5.0); NEUTROPHILS # 5.1 10^3/uL (1.8-7.7); NEUTROPHILS % 63.3 % (36.0-66.0); PLATELET COUNT, AUTOMATED 359 10^3/uL (150-450); RED BLOOD COUNT 4.98 10^6/uL (4.00-5.40); RED CELL DISTRIBUTION WIDTH 17.2 % (11.5-14.5); WHITE BLOOD COUNT 8.1 10^3/uL (4.0-10.0)
[2017-10-07 20:41] LABS: ALBUMIN 3.8 GM/DL (3.2-5.2); ALBUMIN/GLOBULIN RATIO 1.12 (1.00-1.93); ALKALINE PHOSPHATASE 82 U/L (45-117); ALT/SGPT 25 U/L (12-78); ANION GAP 5 MEQ/L (8-16); AST/SGOT 19 U/L (7-37); BILIRUBIN,TOTAL 0.5 MG/DL (0.2-1.0); BLOOD UREA NITROGEN 15 MG/DL (7-18); CALCIUM LEVEL 8.9 MG/DL (8.8-10.2); CARBON DIOXIDE LEVEL 31 MEQ/L (21-32); CHLORIDE LEVEL 101 MEQ/L (98-107); CREATININE FOR GFR 0.87 MG/DL (0.55-1.30); FERRITIN 33 NG/ML (8-252); GLOMERULAR FILTRATION RATE > 60.0 (>39); GLUCOSE, FASTING 80 MG/DL (70-100); IRON (FE) 51 UG/DL (50-170); PERCENT SATURATION 13.2 % (13.2-45.0); POTASSIUM SERUM 4.1 MEQ/L (3.5-5.1); SODIUM LEVEL 137 MEQ/L (136-145); TOTAL IRON BINDING CAPACITY 387 UG/DL (250-450); TOTAL PROTEIN 7.2 GM/DL (6.4-8.2)
[2017-10-07 20:47] LABS: PTH INTACT 77.1 PG/ML (18.5-88.0); TOTAL 25(OH) VITAMIN D 87.2 NG/ML (30.0-100.0)
[2017-10-07 20:48] LABS: CARCINOEMBRYONIC ANTIGEN 1.6 NG/ML (<2.5)
[2017-10-07 21:10] LABS: ESTIMATED AVERAGE GLUCOSE 123 MG/DL (60-110); HEMOGLOBIN A1c 5.9 %
== END ==
LOC: M LABDRWAD 19:21
DX: D50.9 Iron deficiency anemia, unspecified (principal); E55.9 Vitamin D deficiency, unspecified; R73.01 Impaired fasting glucose
CPT/HCPCS: 82378

== ENCOUNTER 2017-10-27 14:53 | Outpatient (CLI) | payer MEDICARE, MEDICAID ==
[2017-10-27] MEDS: ZOLEDRONIC ACID 5 MG in APPROPRIATE DILUENT 1 EA IV (15:07)
== END 2017-10-27 16:00 | disposition home or self-care (01) ==
LOC: M INFU 14:53
DX: M85.80 Other specified disorders of bone density and structure, unspecified site (principal); I10 Essential (primary) hypertension; E78.00 Pure hypercholesterolemia, unspecified; G47.30 Sleep apnea, unspecified; M17.9 Osteoarthritis of knee, unspecified; Z79.899 Other long term (current) drug therapy
CPT/HCPCS: J3489

== ENCOUNTER → 2018-01-27 | Outpatient (CLI) | payer MEDICARE, MEDICAID ==
[2018-01-27 12:18] LABS: BASO # 0.1 10^3/uL (0.0-0.2); BASO % 0.7 % (0.0-1.0); EOS # 0.3 10^3/uL (0.0-0.50); EOS % 4.4 % (0.0-3.0); HEMOGLOBIN 13.1 g/dl (12.0-15.5); IMMATURE GRANULOCYTE % 0.4 % (0-3.0); LYMPH # 1.7 10^3/uL (1.5-4.5); LYMPH % 22.6 % (24.0-44.0); MEAN CORPUSCULAR HEMOGLOBIN 27.2 pg (27.0-33.0); MEAN CORPUSCULAR HGB CONC 33.6 g/dl (32.0-36.5); MEAN CORPUSCULAR VOLUME 80.9 fl (80.0-96.0); MONO # 0.7 10^3/uL (0.0-0.8); MONO % 9.3 % (0.0-5.0); NEUTROPHILS # 4.7 10^3/uL (1.8-7.7); NEUTROPHILS % 62.6 % (36.0-66.0); PLATELET COUNT, AUTOMATED 334 10^3/uL (150-450); RED BLOOD COUNT 4.82 10^6/uL (4.00-5.40); RED CELL DISTRIBUTION WIDTH 15.4 % (11.5-14.5); RETIC HEMOGLOBIN EQUIVALENT 31.1 pg (24-36); RETICULOCYTE # 77.6 10^9/L (17-77); RETICULOCYTE % 1.6 % (0.5-1.5); WHITE BLOOD COUNT 7.6 10^3/uL (4.0-10.0)
[2018-01-27 12:57] LABS: TOTAL 25(OH) VITAMIN D 116.4 NG/ML (30.0-100.0)
[2018-01-27 12:58] LABS: PTH INTACT 90.8 PG/ML (18.5-88.0)
[2018-01-27 13:04] LABS: ALBUMIN 3.8 GM/DL (3.2-5.2); ALBUMIN/GLOBULIN RATIO 1.09 (1.00-1.93); ALKALINE PHOSPHATASE 72 U/L (45-117); ALT/SGPT 29 U/L (12-78); ANION GAP 11 MEQ/L (8-16); AST/SGOT 21 U/L (7-37); BILIRUBIN,TOTAL 0.4 MG/DL (0.2-1.0); BLOOD UREA NITROGEN 15 MG/DL (7-18); C REACTIVE PROTEIN QUANTITATIV 0.71 MG/DL (0.00-0.30); CALCIUM LEVEL 8.9 MG/DL (8.8-10.2); CARBON DIOXIDE LEVEL 26 MEQ/L (21-32); CHLORIDE LEVEL 103 MEQ/L (98-107); CREATININE FOR GFR 0.97 MG/DL (0.55-1.30); FREE T4 1.15 NG/DL (0.76-1.46); GLOMERULAR FILTRATION RATE 59.8 (>39); GLUCOSE, FASTING 98 MG/DL (70-100); POTASSIUM SERUM 4.3 MEQ/L (3.5-5.1); SODIUM LEVEL 140 MEQ/L (136-145); TOTAL PROTEIN 7.3 GM/DL (6.4-8.2)
[2018-01-27 14:10] LABS: ESTIMATED AVERAGE GLUCOSE 128 MG/DL (60-110); HEMOGLOBIN A1c 6.1 %
== END ==
LOC: M ADAMS 09:38
DX: M06.9 Rheumatoid arthritis, unspecified (principal); E03.9 Hypothyroidism, unspecified; R73.01 Impaired fasting glucose; E55.9 Vitamin D deficiency, unspecified; D50.9 Iron deficiency anemia, unspecified
CPT/HCPCS: 84443

== ENCOUNTER → 2018-03-05 | Outpatient (REF) | payer MEDICARE, MEDICAID ==
[2018-03-05 20:54] LABS: BASO % 0.5 % (0.0-1.0); EOS # 0.3 10^3/uL (0.0-0.50); EOS % 3.2 % (0.0-3.0); HEMATOCRIT 43.3 % (36.0-47.0); HEMOGLOBIN 14.1 g/dl (12.0-15.5); IMMATURE GRANULOCYTE % 0.4 % (0-3.0); LYMPH # 1.7 10^3/uL (1.5-4.5); LYMPH % 21.2 % (24.0-44.0); MEAN CORPUSCULAR HEMOGLOBIN 26.9 pg (27.0-33.0); MEAN CORPUSCULAR HGB CONC 32.6 g/dl (32.0-36.5); MEAN CORPUSCULAR VOLUME 82.5 fl (80.0-96.0); MONO # 0.8 10^3/uL (0.0-0.8); MONO % 9.3 % (0.0-5.0); NEUTROPHILS # 5.4 10^3/uL (1.8-7.7); NEUTROPHILS % 65.4 % (36.0-66.0); PLATELET COUNT, AUTOMATED 326 10^3/uL (150-450); RED BLOOD COUNT 5.25 10^6/uL (4.00-5.40); RED CELL DISTRIBUTION WIDTH 15.3 % (11.5-14.5); WHITE BLOOD COUNT 8.2 10^3/uL (4.0-10.0)
[2018-03-05 20:57] LABS: ALBUMIN/GLOBULIN RATIO 0.98 (1.00-1.93); ALKALINE PHOSPHATASE 77 U/L (45-117); ALT/SGPT 33 U/L (12-78); ANION GAP 9 MEQ/L (8-16); AST/SGOT 26 U/L (7-37); BILIRUBIN,TOTAL 0.8 MG/DL (0.2-1.0); BLOOD UREA NITROGEN 14 MG/DL (7-18); C REACTIVE PROTEIN QUANTITATIV 1.83 MG/DL (0.00-0.30); CALCIUM LEVEL 8.9 MG/DL (8.8-10.2); CARBON DIOXIDE LEVEL 27 MEQ/L (21-32); CHLORIDE LEVEL 103 MEQ/L (98-107); CREATININE FOR GFR 0.91 MG/DL (0.55-1.30); GLOMERULAR FILTRATION RATE > 60.0 (>39); GLUCOSE, FASTING 88 MG/DL (70-100); POTASSIUM SERUM 4.4 MEQ/L (3.5-5.1); SODIUM LEVEL 139 MEQ/L (136-145); TOTAL PROTEIN 8.1 GM/DL (6.4-8.2)
== END ==
LOC: M LAB REF 20:02
DX: M05.79 Rheumatoid arthritis with rheumatoid factor of multiple sites without organ or systems involvement (principal)
CPT/HCPCS: 80053

== ENCOUNTER → 2018-05-15 | Outpatient (REF) | payer MEDICARE, MEDICAID ==
[2018-05-15 13:28] LABS: ALBUMIN 4.2 GM/DL (3.2-5.2); ALBUMIN/GLOBULIN RATIO 1.17 (1.00-1.93); ALKALINE PHOSPHATASE 70 U/L (45-117); ALT/SGPT 34 U/L (12-78); ANION GAP 8 MEQ/L (8-16); AST/SGOT 23 U/L (7-37); BILIRUBIN,TOTAL 0.6 MG/DL (0.2-1.0); BLOOD UREA NITROGEN 21 MG/DL (7-18); C REACTIVE PROTEIN QUANTITATIV 1.02 MG/DL (0.00-0.30); CALCIUM LEVEL 9.8 MG/DL (8.8-10.2); CARBON DIOXIDE LEVEL 30 MEQ/L (21-32); CHLORIDE LEVEL 97 MEQ/L (98-107); CREATININE FOR GFR 0.83 MG/DL (0.55-1.30); GLOMERULAR FILTRATION RATE > 60.0 (>39); GLUCOSE, FASTING 109 MG/DL (70-100); POTASSIUM SERUM 4.2 MEQ/L (3.5-5.1); SODIUM LEVEL 135 MEQ/L (136-145); TOTAL PROTEIN 7.8 GM/DL (6.4-8.2)
[2018-05-15 14:31] LABS: BASO # 0.1 10^3/uL (0.0-0.2); BASO % 0.9 % (0.0-1.0); EOS # 0.2 10^3/uL (0.0-0.50); EOS % 3.4 % (0.0-3.0); HEMATOCRIT 42.2 % (36.0-47.0); IMMATURE GRANULOCYTE % 0.1 % (0-3.0); LYMPH # 1.8 10^3/uL (1.5-4.5); LYMPH % 25.7 % (24.0-44.0); MEAN CORPUSCULAR HEMOGLOBIN 27.2 pg (27.0-33.0); MEAN CORPUSCULAR HGB CONC 33.2 g/dl (32.0-36.5); MEAN CORPUSCULAR VOLUME 82.1 fl (80.0-96.0); MONO # 0.6 10^3/uL (0.0-0.8); MONO % 8.9 % (0.0-5.0); NEUTROPHILS # 4.2 10^3/uL (1.8-7.7); PLATELET COUNT, AUTOMATED 350 10^3/uL (150-450); RED BLOOD COUNT 5.14 10^6/uL (4.00-5.40); RED CELL DISTRIBUTION WIDTH 16.4 % (11.5-14.5); WHITE BLOOD COUNT 6.8 10^3/uL (4.0-10.0)
[2018-05-15 14:53] LABS: ERYTHROCYTE SEDIMENTATION RATE 18 mm/hr (0-30)
[2018-05-15 15:27] LABS: ESTIMATED AVERAGE GLUCOSE 131 MG/DL (60-110); HEMOGLOBIN A1c 6.2 %
[2018-05-16 15:23] LABS: INSULIN LEVEL 29.1 uIU/mL (2.6-24.9)
== END ==
LOC: M SFHCADAM 09:54
DX: N18.3 Chronic kidney disease, stage 3 (moderate) (principal); M06.9 Rheumatoid arthritis, unspecified; R73.01 Impaired fasting glucose
CPT/HCPCS: 83525

== ENCOUNTER → 2018-06-09 | Outpatient (CLI) | payer MEDICARE, MEDICAID | LOC: M SLEEP 19:24 | DX: G47.33 Obstructive sleep apnea (adult) (pediatric) (principal) | CPT/HCPCS: 95811 ==

== ENCOUNTER → 2018-06-25 | Outpatient (CLI) | payer MEDICARE, MEDICAID ==
--- NOTE | 2018-06-25 13:45 | REPMRS ---
Patient History The patient states she has not had a clinical breast exam in over a year. Family history of prostate cancer at age 72 in father, prostate cancer at age 60 in brother, breast cancer in paternal aunt. Took unspecified hormones for 20 years. Digital Woman Screen Mammo: June 25, 2018 - Exam #: [id number] Bilateral CC and MLO view(s) were taken. Technologist: Mariah Andrade, Technologist Prior study comparison: June 24, 2017, digital woman screen mammo performed at [facility]. June 17, 2016, digital woman screen mammo performed at [facility]. June 09, 2015, digital woman screen mammo performed at [facility]. FINDINGS: There are scattered fibroglandular densities. There has been no change in the appearance of the mammogram from the prior studies. There is a mild amount of scattered fibroglandular density which is fairly symmetric. There is no interval development of dominant mass, architectural distortion, or clustered microcalcification suggestive of malignancy. Assessment: BI-RADS/ACR category 1 mammogram. Negative. Recommendation Routine screening mammogram of both breasts in 1 year (for women over age 40). This patient's Lifetime Breast Cancer RIsk is estimated at 5.6 %. This mammogram was interpreted with the aid of an FDA-approved computer-aided dectection system. Electronically Signed By: Floyd Sen MD 06/25/18 [id number]
== END ==
LOC: M WHC 12:54
PROVIDERS: ATTEND Family Medicine
DX: Z12.31 Encounter for screening mammogram for malignant neoplasm of breast (principal); Z92.29 Personal history of other drug therapy
CPT/HCPCS: 77063; 77067; G0463

== ENCOUNTER → 2018-07-28 | Outpatient (CLI) | payer MEDICARE, MEDICAID | LOC: M WHC 11:26 | PROVIDERS: ATTEND Family Medicine | DX: M81.0 Age-related osteoporosis without current pathological fracture (principal) ==

== ENCOUNTER → 2018-08-18 | Outpatient (REF) | payer MEDICARE, MEDICAID ==
[2018-08-18 12:43] LABS: BASO % 0.6 % (0.0-1.0); EOS # 0.4 10^3/uL (0.0-0.50); EOS % 5.1 % (0.0-3.0); HEMATOCRIT 40.6 % (36.0-47.0); HEMOGLOBIN 13.5 g/dl (12.0-15.5); LYMPH # 1.7 10^3/uL (1.5-4.5); LYMPH % 24.3 % (24.0-44.0); MEAN CORPUSCULAR HEMOGLOBIN 27.8 pg (27.0-33.0); MEAN CORPUSCULAR HGB CONC 33.3 g/dl (32.0-36.5); MEAN CORPUSCULAR VOLUME 83.7 fl (80.0-96.0); MONO # 0.7 10^3/uL (0.0-0.8); MONO % 10.6 % (0.0-5.0); NEUTROPHILS # 4.1 10^3/uL (1.8-7.7); PLATELET COUNT, AUTOMATED 373 10^3/uL (150-450); RED BLOOD COUNT 4.85 10^6/uL (4.00-5.40); WHITE BLOOD COUNT 6.9 10^3/uL (4.0-10.0)
[2018-08-18 13:03] LABS: ALBUMIN 3.9 GM/DL (3.2-5.2); ALT/SGPT 27 U/L (12-78); BILIRUBIN,TOTAL 0.5 MG/DL (0.2-1.0); BLOOD UREA NITROGEN 16 MG/DL (7-18); C REACTIVE PROTEIN QUANTITATIV 1.23 MG/DL (0.00-0.30); CALCIUM LEVEL 8.9 MG/DL (8.8-10.2); CARBON DIOXIDE LEVEL 30 MEQ/L (21-32); CHLORIDE LEVEL 97 MEQ/L (98-107); CREATININE FOR GFR 0.85 MG/DL (0.55-1.30); GLOMERULAR FILTRATION RATE > 60.0 (>39); GLUCOSE, FASTING 101 MG/DL (70-100); POTASSIUM SERUM 4.3 MEQ/L (3.5-5.1); SODIUM LEVEL 135 MEQ/L (136-145); TOTAL PROTEIN 7.4 GM/DL (6.4-8.2)
[2018-08-18 13:19] LABS: ERYTHROCYTE SEDIMENTATION RATE 30 mm/hr (0-30)
== END ==
LOC: M SFHCADAM 08:54
PROVIDERS: ATTEND Internal Medicine Rheumatology
DX: M06.9 Rheumatoid arthritis, unspecified (principal)

== ENCOUNTER → 2018-09-14 | Outpatient (CLI) | payer MEDICARE, MEDICAID ==
[~2018-09-14] MED LIST changes: +ASPI81TA85 PO; +AVAP75TA7 PO; +DEXI60CA2 PO; +FOLI1TAB11 PO; +FURO40TA2 PO; +LINZ72CA PO; +METH2.5T48 PO; +PARO40TA2 PO; +RECL5INJ2 IV; +SENN8.6T17 PO; +SIMV10TA2 PO; +SPIR-10 PO; +SYNT100T PO; +VITA50005 PO; +XANA0.25 PO
[2018-09-14 10:12] LABS: HEMATOCRIT 40.3 % (36.0-47.0); HEMOGLOBIN 13.2 g/dl (12.0-15.5); MEAN CORPUSCULAR HEMOGLOBIN 26.9 pg (27.0-33.0); MEAN CORPUSCULAR HGB CONC 32.8 g/dl (32.0-36.5); MEAN CORPUSCULAR VOLUME 82.2 fl (80.0-96.0); PLATELET COUNT, AUTOMATED 332 10^3/uL (150-450); WHITE BLOOD COUNT 7.5 10^3/uL (4.0-10.0)
[2018-09-14 10:21] LABS: INR 1.06
[2018-09-14 10:32] LABS: ALBUMIN 3.6 GM/DL (3.2-5.2); ALT/SGPT 24 U/L (12-78); BILIRUBIN,TOTAL 0.5 MG/DL (0.2-1.0); BLOOD UREA NITROGEN 19 MG/DL (7-18); CARBON DIOXIDE LEVEL 27 MEQ/L (21-32); CHLORIDE LEVEL 102 MEQ/L (98-107); CREATININE FOR GFR 0.84 MG/DL (0.55-1.30); GLOMERULAR FILTRATION RATE > 60.0 (>39); GLUCOSE, FASTING 105 MG/DL (70-100); SODIUM LEVEL 137 MEQ/L (136-145); TOTAL PROTEIN 7.1 GM/DL (6.4-8.2)
[2018-09-14 10:34] LABS: ERYTHROCYTE SEDIMENTATION RATE 17 mm/hr (0-30)
--- NOTE | 2018-09-14 11:24 | REP ---
PA and lateral chest: Comparison is 04/17/2017. There are no acute infiltrates or pleural effusions. There is mild interstitial coarsening, unchanged, compatible with chronic lung disease. Cardiac size is enlarged, unchanged. The [place] and mediastinum are unremarkable and unchanged. There are chronic compression deformities of the approximate T10-T11 vertebral bodies, unchanged. Impression: No interval change. No acute cardiopulmonary findings. Chronic mild interstitial coarsening compatible with chronic lung disease. Chronic cardiomegaly. Chronic vertebral body compression deformities as described. Electronically Signed by Brent Colunga MD 09/14/2018 11:15 A
--- NOTE | 2018-09-14 20:09 | ECGEPIP ---
Stationary ECG Study [facility] Test Date: 2018-09-14 Pat Name: CLAY RODRÍGUEZ Department: Room: - Gender: F Electric Plater: : 1945 Requested By: Alexei Alegre Order Number: [id number] Reading MD: Nemesio Max Measurements Intervals [place] Rate: 92 P: 24 IA: 222 QRS: -22 QRSD: 118 T: 71 QT: 373 QTc: 463 Interpretive Statements Normal sinus rhythm first degree AV block Intraventricular conduction delay Nonspecific repolarization abnormality No significant change since prior tracing of 04/17/2017 Electronically Signed On 09-14-2018 20:09:36 EDT by Nemesio Max
== END ==
LOC: M LAB 09:12
PROVIDERS: ATTEND Orthopaedic Surgery
DX: Z01.818 Encounter for other preprocedural examination (principal); M13.862 Other specified arthritis, left knee; I51.7 Cardiomegaly

== ENCOUNTER 2018-10-02 06:57 | Inpatient (IN) | payer MEDICARE, MEDICAID ==
--- NOTE | 2018-09-28 14:33 | HPE ---
DATE OF ADMISSION: 10/02/2018 ATTENDING PHYSICIAN: Dr. Alexei Alegre CHIEF COMPLAINT: Left knee pain and stiffness. HISTORY: This a pleasant 73-year-old female patient with progressively worsening left knee pain and stiffness. She has failed to improve with conservative management and continues to have pain with weightbearing activities. She has elected for surgery for her continued symptoms and been consented for left total knee arthroplasty by Dr. Alegre. ALLERGIES: No known drug allergies. CURRENT MEDICATIONS: - Xanax 0.25 mg one p.o. daily at bedtime - levothyroxine 100 mcg one p.o. daily - MiraLax 17 grams one p.o. daily - Senokot 30 mg one p.o. as needed - Linzess 72 micrograms capsule one p.o. daily - aspirin 81 mg one p.o. daily - Lasix 40 mg one p.o. b.i.d. - Dexilant 60 mg one p.o. daily - Reclast 5mg/ 100 mg as directed - simvastatin 10 mg one p.o. daily - Flonase one spray in each nostril as needed - calcium 50,000 units one p.o. q. 7 days - Tums as needed - paroxetine 40 mg one p.o. daily - methotrexate 2.5 mg 4 tablets p.o. once a week - folic acid 1 mg one p.o. daily - irbesartan 75 mg one by mouth daily PAST MEDICAL HISTORY: Rheumatoid arthritis, depression, iron deficiency anemia, hypothyroidism, hyperlipidemia, obstructive sleep apnea, osteopenia, hypertension, constipation, mild left ventricular hypertrophy, left atrial enlargement, diastolic dysfunction, chronic diastolic congestive heart failure (CHF). PAST SURGICAL HISTORY: Cholecystectomy, right knee arthroscopy, left ankle open reduction, internal fixation (ORIF), cataracts, left knee arthroscopy, right total knee arthroplasty. FAMILY HISTORY: Father with prostate cancer. Mother with heart disease. SOCIAL HISTORY: The patient is a nonsmoker and occasionally uses alcohol. REVIEW OF SYSTEMS: Denies fever, chills, chest pain, shortness of breath, nausea, vomiting, diarrhea, recent upper respiratory or urinary tract infection symptoms. Reports persistent pain in the left knee with weightbearing activities. PHYSICAL EXAMINATION: Height 62 inches, weight 170 pounds, temperature 97.8, blood pressure 120/80, pulse 62, respirations 18. She is a normocephalic, atraumatic, well-nourished, well-developed, adult female patient who ambulates in the clinic today with a slightly antalgic gait favoring the left side. Neck is supple and nontender with no lymphadenopathy or jugular venous distention (JVD). S1, S2 auscultated. Chest is clear to auscultation bilaterally. Abdomen is soft, nontender. Left lower extremity shows intact range of motion. Overlying skin is intact. No erythema, ecchymosis or warmth. Tenderness to palpation over the medial aspect of the knee. EKG noted for sinus rhythm with first-degree AV block and interventricular conduction delay, repolarization abnormality, unchanged from EMG on April 2017. Chest x-ray without any acute cardiopulmonary findings. Mild interstitial coarsening compatible with chronic lung disease, cardiomegaly, chronic vertebral body compression deformities. No change from previous chest x-ray. LABORATORY DATA: White blood count 7.5, red blood count 4.9, hemoglobin 13.2, hematocrit 40.3, ESR 17, BUN 19, creatinine 0.84, PT 14, INR 1.06. Preoperative medical optimization by Dr. Shah was reviewed today and is present on the patient's chart. IMPRESSION: Left knee degenerative changes, symptomatic. PLAN: Consented for left total knee arthroplasty by Dr. Alegre.
[2018-10-02] VITALS (7 sets, daily range): BP systolic 108–138; BP diastolic 58–74
[~2018-10-02] VITALS: Ht 157.5 cm; Wt 78.5 kg
[~2018-10-02 06:57] MED LIST changes: +LR 1,000 ML IV ONE; +fentaNYL 100 MCG/2 ML INJECTION (J3010) IV SCH
--- NOTE | 2018-10-02 07:51 | IPN ---
DATE: 10/02/2018 The patient was seen and examined. She wished to go ahead with a left knee arthroplasty and she understands the nature this. The risks of bleeding, infection, damage to nerves, vessels, persistent pain, wear loosening, blood clots, medical problems, among others. Preop clearance was obtained.
[2018-10-02] MEDS ORDERED: fentaNYL 100 MCG/2 ML INJECTION (J3010) As Ordered ONE ×2 (08:24→11:19)
[2018-10-02] MEDS ORDERED: MIDAZOLAM INJ 2 MG/2 ML VIAL (J2250) As Ordered ONE ×2 (08:24→11:19)
[2018-10-02] MEDS: MIDAZOLAM INJ 2 MG/2 ML VIAL (J2250) IV SCH ×2 (08:38→08:41)
[2018-10-02] MEDS ORDERED: ceFAZolin 1GM INJ (J0690 PER 500MG) As Ordered ONE (08:50)
[2018-10-02] MEDS ORDERED: TRANEXAMIC ACID 100 MG/ML 10ML VIAL As Ordered ONE (08:50)
[2018-10-02] MEDS ORDERED: EPINEPHrine INJ 1 MG/ML 1ML AMP As Ordered ONE (08:50)
[2018-10-02] MEDS ORDERED: BUPIVACAINE LIPOSOME/PF 1.3% 20ML VIAL (13.3MG/ML)(EXPAREL)(C9290 PER1MG) As Ordered ONE (08:51)
[2018-10-02] MEDS ORDERED: BUPIVACAINE/DEXTROSE 0.75% 2 ML AMP As Ordered ONE (11:19)
[2018-10-02] MEDS ORDERED: PROPOFOL 200 MG/20 ML VIAL As Ordered ONE (11:19)
[2018-10-02] MEDS ORDERED: LIDOCAINE 2% INJ 100 MG/5 ML SDV (FOR ANES.) As Ordered ONE (11:19)
[2018-10-02] MEDS ORDERED: ONDANSETRON 4MG/2ML VIAL (J2405) As Ordered ONE (11:19)
[2018-10-02] MEDS ORDERED: ACETAMINOPHEN TAB 650MG DOSE (2X325MG) PO PRN (12:15)
[2018-10-02] MEDS ORDERED: MEPERIDINE INJ 25 MG/ML VIAL (J2175) IV PRN ×2 (12:15→13:45)
[2018-10-02] MEDS ORDERED: ONDANSETRON 4MG/2ML VIAL (J2405) IV PRN ×3 (12:15→13:45)
[2018-10-02] MEDS ORDERED: fentaNYL 100 MCG/2 ML INJECTION (J3010) IV PRN ×2 (12:15→13:45)
[2018-10-02] MEDS ORDERED: METOCLOPRAMIDE INJ 10MG/2ML VIAL (J2765) IV PRN ×2 (12:15→13:45)
[2018-10-02] MEDS ORDERED: PERCOCET 5MG/325MG TAB PO PRN ×2 (12:15→13:45)
[2018-10-02] MEDS ORDERED: FLEET ENEMA PR PRN (12:15)
[2018-10-02] MEDS ORDERED: LR 1,000 ML IV SCH ×3 (12:15→13:45)
[2018-10-02] MEDS ORDERED: MORPHINE 4 MG/ML 1ML VIAL/SYRINGE (J2270) IV PRN ×2 (12:15)
--- NOTE | 2018-10-02 12:45 | REP ---
LEFT KNEE, TWO VIEWS: Two views of the left knee performed. There is a total knee prosthesis in good position. Structures are well aligned. Metallic skin jassi are seen anteriorly. Electronically Signed by Brent Garza MD 10/02/2018 03:37 P
[2018-10-02] MEDS: PERCOCET 5MG/325MG TAB PO PRN ×2 (17:16→21:47)
[2018-10-02] MEDS ORDERED: SIMVASTATIN 10 MG TAB PO SCH (21:00)
[2018-10-02] MEDS ORDERED: POLYVINYL ALCOHOL OPHTH SOLN 15 ML(LIQUITEARS) OU PRN (22:30)
[2018-10-02] MEDS ORDERED: FLUTICASONE PROP 0.05% NASAL SPRAY 16 GM (FLONASE) PRN (22:30)
[2018-10-02] MEDS ORDERED: PILL CRUSHER/CUTTER 1 EACH XX PRN (23:00)
[2018-10-02] MEDS ORDERED: ALPRAZolam 0.25 MG TAB PO PRN (23:15)
[2018-10-02] MEDS ORDERED: PERCOCET 5MG/325MG TAB PO ONE (23:15)
[2018-10-03 02:00] VITALS: BP 119/64
[2018-10-03] MEDS: PERCOCET 5MG/325MG TAB PO PRN ×3 (03:45→12:49)
[2018-10-03 06:00] VITALS: BP 115/53
[2018-10-03] MEDS ORDERED: ONDANSETRON 4 MG TAB (S0181) PO PRN (06:30)
[2018-10-03] MEDS ORDERED: PERC5TAB12 PO (06:45)
[2018-10-03] MEDS ORDERED: XARE10TA PO (06:45)
[2018-10-03 07:23] LABS: HEMATOCRIT 33.5 % (36.0-47.0); HEMOGLOBIN 11.1 g/dl (12.0-15.5); MEAN CORPUSCULAR HGB CONC 33.1 g/dl (32.0-36.5); MEAN CORPUSCULAR VOLUME 81.5 fl (80.0-96.0); PLATELET COUNT, AUTOMATED 279 10^3/uL (150-450); RED BLOOD COUNT 4.11 10^6/uL (4.00-5.40); WHITE BLOOD COUNT 9.6 10^3/uL (4.0-10.0)
[2018-10-03 07:35] LABS: INR 1.1; PROTHROMBIN TIME 14.3 SECONDS (12.1-14.4)
[2018-10-03 07:46] LABS: BLOOD UREA NITROGEN 15 MG/DL (7-18); CALCIUM LEVEL 8.1 MG/DL (8.8-10.2); CARBON DIOXIDE LEVEL 25 MEQ/L (21-32); CHLORIDE LEVEL 105 MEQ/L (98-107); CREATININE FOR GFR 0.78 MG/DL (0.55-1.30); GLOMERULAR FILTRATION RATE > 60.0 (>39); GLUCOSE, FASTING 115 MG/DL (70-100); POTASSIUM SERUM 3.8 MEQ/L (3.5-5.1); SODIUM LEVEL 139 MEQ/L (136-145)
[2018-10-03 08:19] VITALS: BP 115/70
[2018-10-03] MEDS ORDERED: PARoxetine 20 MG TAB PO SCH (09:00)
[2018-10-03] MEDS ORDERED: SPIRONOLACTONE 25 MG TAB PO SCH (09:00)
[2018-10-03] MEDS ORDERED: MOM 30ML SUSPENSION UDC PO SCH (09:00)
[2018-10-03] MEDS ORDERED: ASPIRIN 81 MG ENTERIC TAB PO SCH (09:00)
[2018-10-03] MEDS ORDERED: SENNA 8.6 MG TAB (SENOKOT) PO SCH (09:00)
[2018-10-03] MEDS ORDERED: PANTOPRAZOLE 40MG TAB (PROTONIX) PO SCH (09:00)
[2018-10-03] MEDS ORDERED: MIRALAX *UNIT DOSE* 17GM PACKET PO SCH (09:00)
[2018-10-03] MEDS ORDERED: IRBESARTAN 150 MG TAB PO SCH (09:00)
[2018-10-03] MEDS ORDERED: METHOTREXATE 2.5 MG TAB (J8610 PER 2.5MG) PO SCH (09:00)
[2018-10-03] MEDS ORDERED: VITAMIN D 50,000 UNITS CAPSULE (ERGOCALCIFEROL 1.25MG) PO SCH (09:00)
[2018-10-03] MEDS ORDERED: FOLIC ACID 1 MG TAB PO SCH (09:00)
[2018-10-03] MEDS ORDERED: CALCIUM/VITAMIN D 500 MG TAB PO SCH (09:00)
[2018-10-03] MEDS ORDERED: LEVOTHYROXINE 100MCG TABLET (0.1MG) PO SCH (09:00)
[2018-10-03] MEDS ORDERED: FUROSEMIDE 40 MG TAB PO SCH (09:00)
--- NOTE | 2018-10-03 09:31 | CR ---
DATE OF CONSULTATION: 10/02/2018 My attending physician for this patient encounter is Dr. Shaver. HISTORY: The patient is a 73-year-old female who presents to the hospital for a left knee total arthroplasty performed by Dr. Alexei Alegre on 10/02/2018. The hospitalist service was consulted for management of her chronic medical conditions and medication management. In talking with the patient today, she says she is doing well. She says her knee pain is moderately well controlled. She says that the pain is getting a little bit worse as she feels like the block that she received by anesthesia is starting to wear off. She said she was able to get up three times and go to the bathroom, and has been able to get up and walk around a little bit. The patient says that she takes methotrexate for rheumatoid arthritis once a week. She does this on Tuesdays and did take her last dose this past Friday. The patient also takes vitamin D 50,000 units for vitamin D deficiency once a week, and she does this on Wednesdays, which she also did so this week. The patient does not have any other complaints at this time and is doing well. PAST MEDICAL HISTORY: Rheumatoid arthritis, depression, iron deficiency anemia, hypothyroidism, hyperlipidemia, obstructive sleep apnea, osteopenia, hypertension, constipation, mild left ventricular hypertrophy, left atrial enlargement, diastolic dysfunction, chronic diastolic congestive heart failure. PAST SURGICAL HISTORY: Cholecystectomy, total right knee arthroplasty, left ankle open reduction internal fixation (ORIF), cataract surgery, left knee arthroscopy, and right knee arthroscopy. FAMILY HISTORY: Father is with prostate cancer. Mother is with heart disease. SOCIAL HISTORY: The patient is a nonsmoker and occasionally uses alcohol. MEDICATIONS: - Xanax 0.25 mg at bedtime - levothyroxine 100 mg daily - MiraLAX 17 grams daily - Senokot 30 mg one daily as needed - Linzess 72 mcg daily - aspirin 81 mg daily - Lasix 40 mg twice a day - Dexilant 60 mg daily - Reclast - simvastatin 10 mg daily - Flonase each nostril daily as needed - vitamin D 50,000 units every 7 days on Wednesdays - TUMS as needed - paroxetine 40 mg daily - methotrexate four 2.5 mg tablets once a week on Tuesdays - folic acid 1 mg daily - irbesartan 75 mg daily REVIEW OF SYSTEMS: General: Patient denies fevers. HEENT: The patient denies headaches, runny nose, sore throat. Cardiovascular: Patient denies chest pain. Respiratory: Patient denies shortness of breath. Gastrointestinal (GI): Patient denies nausea, vomiting, or diarrhea. Genitourinary (): Patient denies pain or difficulty with urination. Neurological: Patient denies any numbness or tingling. Extremities: Patient endorses pain in left knee where surgery was done but denies pain anywhere else. Denies any swelling in her extremities. Skin: Denies any rashes. Lymphatics: Patient denies any lumps or bumps in her neck or axilla. PHYSICAL EXAMINATION: Vital Signs: Temperature 97.8, pulse 95, respirations 15, blood pressure 129/70, pulse oximetry 96% on room air. General: The patient is an alert and oriented female who was laying in bed when I walked in. Patient was in no acute distress. HEENT: Normocephalic, atraumatic, anicteric sclerae with moist mucous membranes. Neck: Neck was supple with no lymphadenopathy. Cardiovascular: Regular rate and rhythm with normal S1 and normal S2 with no murmurs. Respiratory: Clear to auscultation bilaterally. Abdomen: Soft, nontender to palpation with normoactive bowel sounds times four quadrants. Extremities: Radial and dorsalis pedis pulses equal bilaterally. The left knee is wrapped in a nonsoiled bandage. There is no edema in the lower extremities bilaterally. Neurological: Patient is able to move all four extremities equally. Patient reports good sensation in upper and lower extremities. Patient did not have any gross neurological defects. A left knee x-ray performed on 10/02/2018 shows total knee prosthesis in good position. Structures are well aligned. Metallic skin jassi are seen. ASSESSMENT AND PLAN: Patient is a 73-year-old female who came to the hospital for left knee total arthroplasty performed by Dr. Alexei Alegre on 10/02/2018. A hospitalist consult was placed to manage the patient's chronic medical conditions and medications. At this time, I will continue her home medications. I have moved her methotrexate until Friday and her vitamin D 50,000 units until Friday if the patient is still hospitalized. If not, these medications will not be given during this hospitalization. My faculty preceptor for this patient encounter was physically present during the encounter and was fully available. All aspects of the patient interview, examination, medical decision making process, and medical care plan development were reviewed and approved by the faculty preceptor. The faculty preceptor is aware and concurs with the plan as stated in the body of this note and will attest to such by his/her cosignature.
--- NOTE | 2018-10-03 13:59 | IPNPDOC ---
Text Note Date of Service The patient was seen on 10/03/18. NOTE Subjective: Patient was seen and examined at the bedside. , Currently patient has no complaints of chest pain, shortness of breath or palpitations. Denies nausea, vomiting, abdominal pain, or discomfort with urination. Patient has noted that she has the ability to pass flatness, however, has not yet had a bowel movement. Objective: Vitals (See below) General: Lying in bed, no acute distress, comfortable, AAOx3 HEENT: NC, AT CVS: RRR, +S1S2 Lungs: Fair air entry b/l, -w/r/r Abdomen: Soft, ND, NT Extremities: - Edema, - Calf tenderness, L knee in dressing Assessment and plan: Left knee pain - s/p total left knee arthroplasty (POD#1) - Presented to [facility] for an elective orthopedic procedure - Received outpatient medical clearance - Pain control, anticoagulation and physical therapy at the direction of orthopedic surgery HTN - BP well controlled - c/w Irbesartan Chronic Diastolic CHF - no evidence of exacerbating - c/w Furosemide and Spironolactone DLP - c/w Simvastatin Hypothyroidism - c/w Levothyroxine BE on CPAP - Allow home BIPAP use Rheumatoid arthritis - c/w Methotrexate Depression - c/w Paroxetine RAINA Osteopenia - c/w Vitamin D supplementation GERD - c/w Protonix DVT prophylaxis - Anti-coagulation as per orthopedic team VS,Chris, I+O VSChris, I+O Laboratory Tests 10/03/18 06:18 Red Blood Count 4.11, Mean Corpuscular Volume 81.5, Mean Corpuscular Hemoglobin 27.0, Mean Corpuscular Hemoglobin Concent 33.1, Red Cell Distribution Width 14.9 H, Calcium Level 8.1 L Vital Signs Date Time Temp Pulse Resp B/P (MAP) Pulse Ox O2 Delivery O2 Flow Rate FiO2 10/03/18 12:49 18 10/03/18 08:19 115/70 10/03/18 06:00 97.9 85 95 10/02/18 09:45 2 I&O- Last 24 Hours up to 6 AM 10/03/18 06:00 Intake Total 2430 ml Output Total 1350 ml Balance 1080 ml NATALIE OLSON MD Oct 03, 2018 13:59
[2018-10-03] MEDS ORDERED: ROPIvacaine 0.5% 30 ML INJECTION (J2795 PER 1MG) ONE (14:31)
[2018-10-03] MEDS ORDERED: EPINEPHrine INJ 1 MG/ML 1ML AMP ONE (14:31)
[2018-10-03] MEDS ORDERED: dexameTHASONE 10 MG/1 ML VIAL PRES.FREE (J1100) ONE (14:31)
[2018-10-03] MEDS ORDERED: RIVAROXABAN 10 MG TAB (XARELTO) PO SCH (18:00)
--- NOTE | 2018-10-05 10:13 | RO ---
DATE OF PROCEDURE: 10/02/2018 PREOPERATIVE DIAGNOSIS: Left knee osteoarthritis. POSTOPERATIVE DIAGNOSIS: Left knee osteoarthritis. PROCEDURE: Left total knee arthroplasty using a Raymond size 5 femur, size 4 tibial tray, 7 polyethylene 35 patellar button. SURGEON: Dr. Alexei Alegre. Codey SWANNMACHINE SET UP OPERATOR PAPER GOODS: Romeo Dimas PA-C ANESTHESIA: Spinal ESTIMATED BLOOD LOSS: Less than 50. COMPLICATIONS: None. INDICATION: 73-year woman has had some gradually worsening left knee pain. She has been refractory to conservative management. She wished to have surgical treatment. DESCRIPTION OF PROCEDURE: The patient was taken to the operating room and placed in the supine position after spinal anesthesia was induced. Left lower extremities prepped and draped in usual sterile fashion. Time-out was performed. Tourniquet was inflated. I created a longitudinal incision over the anterior aspect the knee and a medial parapatellar arthrotomy per routine. Everted the patella, flexed the knee up, used a canal initiating reamer on the femoral side followed by the intramedullary guide and this set at 7 degrees of valgus because she had a fairly valgus femur and 9 mm cut. This was pinned in place by the histology assistant. The distal femoral cut was made while I protected soft tissues. I then sized the femur be a to be a 5. The remaining four cuts were made and then we prepared the tibia. The tibial alignment guide was placed. I ended up removing about 7 or 8 mm from the high side which was the lateral side and appropriate amount of valgus and posterior slope was dialed in. I removed the proximal tibial bone, any osteophytes, etc.; osteophytes from the femoral side as well. We then prepared the box cut. The size five box cut guide was placed and the remaining three cuts were made. We sized the tibial surface to be a 4. This was pinned in place, drilled and broached. Trial components were placed. I had also used a spacer block and the size 7 block seemed to have excellent stability and alignment in flexion and extension. So the 7 polyethylene was inserted. Very pleased with the alignment of position of the components. I then free-hand cut the patella removing about 7 mm of bone, sized to be a 35. The drill holes were placed and the patella tracked very nicely. The drill holes were placed at the end of the femur. The histology assistant prepared the bone cement in the modern technique. I removed the trial components. I injected the Exparel in the deep tissues. The surfaces were carefully irrigated and dried. I cemented on the tibial tray, followed by the femoral component, removed excess bone cement placed the polyethylene posterior stabilized. Brought the knee out in extension and cemented on the patella, held in place with a clamp. All excess bone cement was removed. We irrigated copiously placed the TXA solution. I closed the deep layer with #1-0 Vicryl suture in an interrupted fashion followed by running Stratafix suture. Once the cement had hardened, I had removed the patellar clamp of course. Final closure was achieved with the Stratafix. I Irrigated again, closed the subcu with #2-0 Vicryl, the skin with jassi. A sterile dressing was applied. Tourniquet was deflated and she was taken to recovery room in stable condition. There were no known complications. The plan will be routine postop for knee arthroplasty. The histology assistant was instrumental in holding retractors and making one of bone cuts and mixing the bone cement and assisting in wound closure.
[2018-10-06] MEDS ORDERED: METHOTREXATE 2.5 MG TAB (J8610 PER 2.5MG) PO SCH (09:00)
--- NOTE | 2018-10-06 09:22 | DSES ---
DATE OF ADMISSION: 10/02/2018 DATE OF DISCHARGE: 10/03/2018 ADMITTING DIAGNOSIS: Symptomatic left knee osteoarthritis. DISCHARGE DIAGNOSIS: Status post left total knee arthroplasty. HISTORY OF PRESENT ILLNESS: This is a pleasant 73-year-old female with continuing symptomatic left knee osteoarthritis. She consented for left total knee arthroplasty per Dr. Alexei Alegre. Premedical optimization per primary care. X-rays are consistent with advanced osteoarthritis. HOSPITAL COURSE: The patient uneventfully underwent left total knee arthroplasty under spinal anesthesia and was returned to PACU comfortable. Our hospital team felt she was ready for discharge 10/03/2018 with the following instructions. Weightbearing as tolerated with walker, SASCHA stockings times 30 days, Xarelto per DVT prophylaxis protocol, diet is regular, Percocet as needed for pain, Optifoam dressing change in 3-4 days time, followup at [facility] for wound check, staple removal. The patient is encouraged to contact our office sooner with increased pain, numbness, tingling, drainage, bleeding, fever greater than 101 or any other further concerns. ARCADIO
[2018-10-07] MEDS ORDERED: VITAMIN D 50,000 UNITS CAPSULE (ERGOCALCIFEROL 1.25MG) PO SCH (09:00)
== END 2018-10-03 14:32 | disposition home health service (06) | DRG 470 ==
LOC: M OR 06:57 → M MS5PR 13:01
PROVIDERS: ADMIT Orthopaedic Surgery; ATTEND Orthopaedic Surgery
PROC: 0SRD0J9 Replacement of Left Knee Joint with Synthetic Substitute, Cemented, Open Approach (ICD-10-PCS; principal; 2018-10-02 09:30)
DX: M17.12 Unilateral primary osteoarthritis, left knee (principal); I50.32 Chronic diastolic (congestive) heart failure; I13.0 Hypertensive heart and chronic kidney disease with heart failure and stage 1 through stage 4 chronic kidney disease, or unspecified chronic kidney disease; M06.9 Rheumatoid arthritis, unspecified; F32.9 Major depressive disorder, single episode, unspecified; D50.9 Iron deficiency anemia, unspecified; E03.9 Hypothyroidism, unspecified; E78.5 Hyperlipidemia, unspecified; E55.9 Vitamin D deficiency, unspecified; N18.3 Chronic kidney disease, stage 3 (moderate); R73.01 Impaired fasting glucose; K21.9 Gastro-esophageal reflux disease without esophagitis; G47.33 Obstructive sleep apnea (adult) (pediatric); M85.80 Other specified disorders of bone density and structure, unspecified site; K59.00 Constipation, unspecified; Z90.49 Acquired absence of other specified parts of digestive tract; Z96.651 Presence of right artificial knee joint; Z98.49 Cataract extraction status, unspecified eye; Z79.82 Long term (current) use of aspirin; Z79.899 Other long term (current) drug therapy

== ENCOUNTER → 2018-11-10 | Outpatient (REF) | payer MEDICARE, MEDICAID ==
[~2018-11-10] MED LIST changes: -/ESOM40CA OR; -ASPI1TAB PO; +ASPI81TA26 PO; -LR 1,000 ML IV ONE; +NEXI1CAP3 OR; +XARE10TA PO; -fentaNYL 100 MCG/2 ML INJECTION (J3010) IV SCH
[2018-11-10 14:17] LABS: BASO # 0.1 10^3/uL (0.0-0.2); BASO % 0.5 % (0.0-1.0); EOS # 0.1 10^3/uL (0.0-0.50); HEMATOCRIT 38.1 % (36.0-47.0); HEMOGLOBIN 12.2 g/dl (12.0-15.5); LYMPH # 1.2 10^3/uL (1.5-4.5); LYMPH % 12.3 % (24.0-44.0); MEAN CORPUSCULAR HEMOGLOBIN 26.1 pg (27.0-33.0); MEAN CORPUSCULAR VOLUME 81.6 fl (80.0-96.0); MONO # 0.4 10^3/uL (0.0-0.8); MONO % 4.4 % (0.0-5.0); NEUTROPHILS # 8.1 10^3/uL (1.8-7.7); NEUTROPHILS % 81.5 % (36.0-66.0); PLATELET COUNT, AUTOMATED 397 10^3/uL (150-450); RED BLOOD COUNT 4.67 10^6/uL (4.00-5.40)
[2018-11-10 14:42] LABS: BILIRUBIN,TOTAL 0.4 MG/DL (0.2-1.0); C REACTIVE PROTEIN QUANTITATIV 0.79 MG/DL (0.00-0.30); CALCIUM LEVEL 9.3 MG/DL (8.8-10.2); CREATININE FOR GFR 0.97 MG/DL (0.55-1.30); GLOMERULAR FILTRATION RATE 59.6 (>39); POTASSIUM SERUM 4.4 MEQ/L (3.5-5.1); TOTAL PROTEIN 7.4 GM/DL (6.4-8.2)
[2018-11-10 16:09] LABS: ERYTHROCYTE SEDIMENTATION RATE 24 mm/hr (0-30)
== END ==
LOC: M SFHCADAM 11:45
PROVIDERS: ATTEND Internal Medicine Rheumatology
DX: M06.9 Rheumatoid arthritis, unspecified (principal)

== ENCOUNTER → 2018-12-07 | Outpatient (REF) | payer MEDICARE, MEDICAID ==
[2018-12-07 13:32] LABS: APPEARANCE, URINE CLEAR (CLEAR); BACTERIA, URINE AUTO NEGATIVE (NEGATIVE); BILIRUBIN, URINE AUTO NEGATIVE (NEGATIVE); BLOOD, URINE BLOOD NEGATIVE (NEGATIVE); COLOR, URINE YELLOW (YELLOW); GLUCOSE, URINE (UA) AUTO NEGATIVE (NEGATIVE); KETONE, URINE AUTO NEGATIVE (NEGATIVE); LEUKOCYTE ESTERASE, URINE AUTO 1+ (NEGATIVE); MUCUS, URINE SMALL (NEGATIVE); NITRITE, URINE AUTO NEGATIVE (NEGATIVE); PROTEIN, URINE AUTO NEGATIVE (NEGATIVE); RBC, URINE AUTO 1 /HPF (0-3); SPECIFIC GRAVITY URINE AUTO 1.014 (1.002-1.035); SQUAMOUS EPITHELIAL CELL UR AU 0 /HPF (0-6); UROBILINOGEN, URINE AUTO 0.2 mg/dL (0.0-2.0); WBC, URINE AUTO 3 /HPF (0-3)
[2018-12-07 13:39] LABS: BASO # 0.1 10^3/uL (0.0-0.2); BASO % 0.7 % (0.0-1.0); EOS # 0.3 10^3/uL (0.0-0.50); EOS % 3.5 % (0.0-3.0); HEMATOCRIT 41.9 % (36.0-47.0); HEMOGLOBIN 13.6 g/dl (12.0-15.5); LYMPH # 1.5 10^3/uL (1.5-4.5); LYMPH % 19.6 % (24.0-44.0); MEAN CORPUSCULAR HEMOGLOBIN 27.3 pg (27.0-33.0); MEAN CORPUSCULAR HGB CONC 32.5 g/dl (32.0-36.5); MONO # 0.7 10^3/uL (0.0-0.8); MONO % 8.9 % (0.0-5.0); NEUTROPHILS % 66.9 % (36.0-66.0); PLATELET COUNT, AUTOMATED 350 10^3/uL (150-450); RED BLOOD COUNT 4.99 10^6/uL (4.00-5.40); WHITE BLOOD COUNT 7.5 10^3/uL (4.0-10.0)
[2018-12-07 13:48] LABS: ALBUMIN 4.2 GM/DL (3.2-5.2); ALT/SGPT 26 U/L (12-78); BILIRUBIN,TOTAL 0.5 MG/DL (0.2-1.0); BLOOD UREA NITROGEN 19 MG/DL (7-18); CALCIUM LEVEL 9.4 MG/DL (8.8-10.2); CARBON DIOXIDE LEVEL 28 MEQ/L (21-32); CHLORIDE LEVEL 101 MEQ/L (98-107); CHOLESTEROL LEVEL 178 MG/DL (<200); CHOLESTEROL RISK RATIO 4.139 (<5); CREATININE FOR GFR 0.84 MG/DL (0.55-1.30); GLOMERULAR FILTRATION RATE > 60.0 (>39); GLUCOSE, FASTING 99 MG/DL (70-100); HDL CHOLESTEROL 43 MG/DL (>40); LDL CHOLESTEROL 98 MG/DL (<100); NON-HDL-C 135 MG/DL; POTASSIUM SERUM 4.4 MEQ/L (3.5-5.1); SODIUM LEVEL 137 MEQ/L (136-145); TOTAL PROTEIN 7.6 GM/DL (6.4-8.2); TRIGLYCERIDES LEVEL 185 MG/DL (<150); VITAMIN B12 LEVEL 766 PG/ML (247-911)
[2018-12-07 15:33] LABS: HEMOGLOBIN A1c 5.9 %
== END ==
LOC: M SFHCADAM 10:20
PROVIDERS: ATTEND Family Medicine
DX: D50.9 Iron deficiency anemia, unspecified (principal); E78.2 Mixed hyperlipidemia; R73.01 Impaired fasting glucose

== ENCOUNTER 2018-12-17 12:08 | Outpatient (CLI) | payer MEDICARE, MEDICAID ==
[~2018-12-17] VITALS: Ht 157.5 cm; Wt 79.0 kg
[2018-12-17 12:15] VITALS: BP 133/64
[2018-12-17 13:00] VITALS: BP 127/62
[2018-12-17] MEDS ORDERED: ZOLEDRONIC ACID 5 MG in APPROPRIATE DILUENT 1 EA IV ONE (13:00)
== END 2018-12-17 13:00 ==
LOC: M INFU 12:08
PROVIDERS: ATTEND Family Medicine
DX: M81.0 Age-related osteoporosis without current pathological fracture (principal)
CPT/HCPCS: 96365; 96366; J3489

== ENCOUNTER → 2019-01-14 | Outpatient (REF) | payer MEDICARE, MEDICAID ==
[2019-01-14 20:00] LABS: BASO # 0.1 10^3/uL (0.0-0.2); BASO % 0.7 % (0.0-1.0); EOS # 0.3 10^3/uL (0.0-0.50); EOS % 3.2 % (0.0-3.0); HEMATOCRIT 39.2 % (36.0-47.0); HEMOGLOBIN 12.6 g/dl (12.0-15.5); LYMPH # 2.4 10^3/uL (1.5-4.5); LYMPH % 28.8 % (24.0-44.0); MEAN CORPUSCULAR HGB CONC 32.1 g/dl (32.0-36.5); MEAN CORPUSCULAR VOLUME 80.8 fl (80.0-96.0); MONO # 0.9 10^3/uL (0.0-0.8); MONO % 10.2 % (0.0-5.0); NEUTROPHILS # 4.8 10^3/uL (1.8-7.7); NEUTROPHILS % 56.9 % (36.0-66.0); PLATELET COUNT, AUTOMATED 354 10^3/uL (150-450); RED BLOOD COUNT 4.85 10^6/uL (4.00-5.40); WHITE BLOOD COUNT 8.4 10^3/uL (4.0-10.0)
[2019-01-14 20:06] LABS: ALBUMIN 3.8 GM/DL (3.2-5.2); ALT/SGPT 23 U/L (12-78); BILIRUBIN,TOTAL 0.5 MG/DL (0.2-1.0); BLOOD UREA NITROGEN 14 MG/DL (7-18); C REACTIVE PROTEIN QUANTITATIV 1.55 MG/DL (0.00-0.30); CALCIUM LEVEL 9.2 MG/DL (8.8-10.2); CARBON DIOXIDE LEVEL 30 MEQ/L (21-32); CHLORIDE LEVEL 101 MEQ/L (98-107); CREATININE FOR GFR 0.73 MG/DL (0.55-1.30); GLOMERULAR FILTRATION RATE > 60.0 (>39); GLUCOSE, FASTING 101 MG/DL (70-100); POTASSIUM SERUM 4.3 MEQ/L (3.5-5.1); SODIUM LEVEL 137 MEQ/L (136-145); TOTAL PROTEIN 7.4 GM/DL (6.4-8.2)
[2019-01-14 20:30] LABS: ERYTHROCYTE SEDIMENTATION RATE 23 mm/hr (0-30)
== END ==
LOC: M SFHCPLAZ 19:15 → M LABDRWAD 19:15
PROVIDERS: ATTEND Internal Medicine Rheumatology
DX: M06.9 Rheumatoid arthritis, unspecified (principal)

== ENCOUNTER → 2019-02-23 | Outpatient (REF) | payer MEDICARE, MEDICAID ==
[2019-02-23 13:31] LABS: BASO # 0.1 10^3/uL (0.0-0.2); EOS # 0.3 10^3/uL (0.0-0.50); EOS % 5.1 % (0.0-3.0); HEMATOCRIT 40.3 % (36.0-47.0); HEMOGLOBIN 12.9 g/dl (12.0-15.5); LYMPH # 1.8 10^3/uL (1.5-4.5); LYMPH % 29.2 % (24.0-44.0); MEAN CORPUSCULAR HEMOGLOBIN 26.1 pg (27.0-33.0); MEAN CORPUSCULAR VOLUME 81.4 fl (80.0-96.0); MONO # 0.6 10^3/uL (0.0-0.8); MONO % 9.3 % (0.0-5.0); NEUTROPHILS # 3.4 10^3/uL (1.8-7.7); NEUTROPHILS % 55.1 % (36.0-66.0); PLATELET COUNT, AUTOMATED 375 10^3/uL (150-450); RED BLOOD COUNT 4.95 10^6/uL (4.00-5.40); WHITE BLOOD COUNT 6.1 10^3/uL (4.0-10.0)
[2019-02-23 13:38] LABS: ALT/SGPT 32 U/L (12-78); BILIRUBIN,TOTAL 0.5 MG/DL (0.2-1.0); BLOOD UREA NITROGEN 17 MG/DL (7-18); C REACTIVE PROTEIN QUANTITATIV 1.27 MG/DL (0.00-0.30); CALCIUM LEVEL 8.8 MG/DL (8.8-10.2); CARBON DIOXIDE LEVEL 29 MEQ/L (21-32); CHLORIDE LEVEL 101 MEQ/L (98-107); CREATININE FOR GFR 0.93 MG/DL (0.55-1.30); GLOMERULAR FILTRATION RATE > 60.0 (>39); GLUCOSE, FASTING 98 MG/DL (70-100); POTASSIUM SERUM 4.3 MEQ/L (3.5-5.1); SODIUM LEVEL 138 MEQ/L (136-145); TOTAL PROTEIN 7.3 GM/DL (6.4-8.2)
[2019-02-23 14:00] LABS: ERYTHROCYTE SEDIMENTATION RATE 25 mm/hr (0-30)
== END ==
LOC: M LAB REF 12:36
PROVIDERS: ATTEND Internal Medicine Rheumatology
DX: M06.9 Rheumatoid arthritis, unspecified (principal)

== ENCOUNTER → 2019-05-18 | Outpatient (REF) | payer MEDICARE, MEDICAID ==
[2019-05-18 12:59] LABS: BASO % 0.6 % (0.0-1.0); EOS # 0.2 10^3/uL (0.0-0.5); EOS % 3.7 % (0.0-3.0); HEMOGLOBIN 12.8 g/dl (12.0-15.5); LYMPH # 1.8 10^3/uL (1.5-5.0); LYMPH % 28.1 % (24.0-44.0); MEAN CORPUSCULAR HEMOGLOBIN 27.5 pg (27.0-33.0); MEAN CORPUSCULAR VOLUME 85.8 fl (80.0-96.0); MONO # 0.6 10^3/uL (0.0-0.8); MONO % 9.6 % (0.0-5.0); NEUTROPHILS # 3.6 10^3/uL (1.5-8.5); NEUTROPHILS % 57.7 % (36.0-66.0); PLATELET COUNT, AUTOMATED 330 10^3/uL (150-450); RED BLOOD COUNT 4.66 10^6/uL (4.00-5.40); WHITE BLOOD COUNT 6.2 10^3/uL (4.0-10.0)
[2019-05-18 13:16] LABS: ALBUMIN 3.9 GM/DL (3.2-5.2); ALT/SGPT 32 U/L (12-78); BILIRUBIN,TOTAL 0.6 MG/DL (0.2-1.0); BLOOD UREA NITROGEN 24 MG/DL (7-18); CALCIUM LEVEL 9.3 MG/DL (8.8-10.2); CARBON DIOXIDE LEVEL 30 MEQ/L (21-32); CHLORIDE LEVEL 102 MEQ/L (98-107); CREATININE FOR GFR 0.95 MG/DL (0.55-1.30); FREE T4 1.04 NG/DL (0.76-1.46); GLOMERULAR FILTRATION RATE > 60.0 (>39); GLUCOSE, FASTING 86 MG/DL (70-100); POTASSIUM SERUM 4.5 MEQ/L (3.5-5.1); SODIUM LEVEL 137 MEQ/L (136-145); TOTAL PROTEIN 7.4 GM/DL (6.4-8.2)
[2019-05-18 13:57] LABS: HEMOGLOBIN A1c 6.1 %
== END ==
LOC: M SFHCADAM 09:52
PROVIDERS: ATTEND Family Medicine
DX: R73.01 Impaired fasting glucose (principal); Z79.899 Other long term (current) drug therapy

== ENCOUNTER → 2019-06-23 | Outpatient (CLI) | payer MEDICARE, MEDICAID ==
[~2019-06-23] MED LIST changes: -SIMV10TA2 PO; +SIMV10TA21 PO
--- NOTE | 2019-06-23 10:20 | PFTRPT ---
Site: [facility], [address] [place] [address], [id number] ID: [id number] Name: CLAY RODRÍGUEZ Visit Date: 06/23/2019 Second ID: [id number] Referring Doctor: Kwesi Tirado M.D. Reviewing Doctor: Wyatt Regan MD Precise Winder: Inez Carr Age: 74 : 1945 Sex: Female Race: Height: 62.00 Inches Weight: 165.00 Lbs BSA: 1.76 Order IDs: [id number] Requested Test(s): <RESP-PFT.DLCO> Diagnosis: M06.9 test meet the ATS standards for acceptability and repeatability. IVC is less than 90% of VC. DLCO may be underestimated. Review Status: Not Reviewed Pre-Bronch Post-Bronch Pred Actual %Pred Actual %Chng SPIROMETRY FVC (L) 2.52 2.08 82 2.16 3 FEV1 (L) 1.88 1.62 86 1.61 FEV1/FVC (%) 75 78 103 74 -4 FEF 25% (L/sec) 4.38 2.61 59 2.37 -8 FEF 50% (L/sec) 3.16 1.87 59 1.63 -12 FEF 75% (L/sec) 0.83 0.63 76 0.75 19 FEF 25-75% (L/sec) 1.48 1.41 95 1.41 FEF Max (L/sec) 4.83 3.63 75 2.89 -20 FIVC (L) 2.27 2.16 -4 FIF 50% (L/sec) 3.14 2.83 90 3.03 6 FIF Max (L/sec) 2.90 3.11 7 MVV (L/min) 78 65 83 Expiratory Time (sec) 8.17 7.55 -7 Back Extrap Vol (L) 0.06 0.07 18 Time To FEFmax (sec) 0.111 0.107 -4 LUNG VOLUMES SVC (L) 2.53 2.35 92 IC (L) 2.03 1.74 85 ERV (L) 0.50 0.61 122 TGV (L) 2.72 2.59 95 RV (Pleth) (L) 2.22 1.97 88 TLC (Pleth) (L) 4.75 4.33 91 RV/TLC (Pleth) (%) 46 46 99 DIFFUSION DLCOunc (ml/min/mmHg) 19.00 13.79 72 DLCOcor (ml/min/mmHg) 19.00 13.75 72 DL/VA (ml/min/mmHg/L) 4.00 3.64 91 VA (L) 4.75 3.78 79 BHT (sec) 10.47 IVC (L) 1.94 TLC (SB) (L) 3.93 AIRWAYS RESISTANCE Raw (cmH2O/L/s) 1.86 1.42 76 Gaw (L/s/cmH2O) 1.03 0.70 68 sRaw (cmH2O*s) 4.76 4.04 84 sGaw (1/cmH2O*s) 0.20 0.25 124 BLOOD GASES Hgb (gm/dL) 13.5
== END ==
LOC: M CARPUL 09:23
PROVIDERS: ATTEND Internal Medicine Rheumatology
DX: M06.9 Rheumatoid arthritis, unspecified (principal)

== ENCOUNTER → 2019-07-06 | Outpatient (CLI) | payer MEDICARE ==
--- NOTE | 2019-07-06 13:35 | REP ---
Clinical: Thoracic pain. Technique: AP, lateral, swimmers views of the thoracic spine. Findings: Chronic compression deformities of T10 and T11 are unchanged. Generalized osteopenia and multilevel degenerative changes noted. Impression: Chronic compression deformities at T10 and T11 essentially unchanged compared to 09/14/2018. Electronically Signed by Todd Ramos MD 07/06/2019 01:28 P
--- NOTE | 2019-07-06 13:37 | REP ---
Clinical: Thoracic pain. Technique: Upright view of the chest with four views of the right hemithorax. Findings: Frontal view of the chest demonstrates chronic appearing changes without significant consolidation/contusion, effusion, or pneumothorax. No obvious significant or displaced rib fracture identified. Impression: No obvious acute right rib fracture. Electronically Signed by Todd Ramos MD 07/06/2019 01:29 P
== END ==
LOC: M ADAMS 12:52 → M WHC 12:52
PROVIDERS: ATTEND Physician Assistant Medical
DX: M54.6 Pain in thoracic spine (principal)

== ENCOUNTER → 2019-07-29 | Outpatient (CLI) | payer MEDICARE, MEDICAID ==
--- NOTE | 2019-07-29 14:41 | REP ---
MRI thoracic spine without contrast: History: Thoracic radiculopathy. Comparison thoracic MRI study February 18, 2014. Comparison radiographs July 06, 2019. Technique: Sagittal and axial T1 and T2-weighted scans are acquired in the usual fashion with and without fat saturation. Sequences include spin echo, turbo spin-echo, and STIR imaging sequences. MRI findings: There is a gibbous deformity in the lower thoracic spine related to a chronic wedge compression fracture deformities at T10 and to a lesser extent T11. There is some mild interval loss of anterior vertebral body height at T11 since the 2013 prior study. The appearance is unchanged from July 06, 2019 radiographs. There is no evidence of marrow edema on inversion recovery images at these levels. There is posterior osteophytic ridging at the T9-10 and to a lesser extent at the T10-11 and T11-12. There is diffuse disc bulging at L1-L2. There is a central focal disc protrusion at T4-5 effacing the ventral subarachnoid space which appears unchanged from the February 18, 2014 study. No cord compressive lesion is seen. The central canal in the lower thoracic cord is visible on T2-weighted scans today at the T10-T11 level but there is no bishnu syrinx. This appearance is felt to be unchanged as well. There are degenerative disc changes in the lower cervical spine. Impression: Anterior wedge compression deformities at T10 and T11 appear chronic although there is slight interval loss of height at T11 anteriorly. Thoracic gibbous deformity here. Moderate-sized central disc protrusion at T4-5 again seen essentially unchanged. No cord compression seen. Electronically Signed by Carlos Sen MD 07/29/2019 04:58 P
== END ==
LOC: M RAD 12:20
PROVIDERS: ATTEND Family Medicine
DX: M54.14 Radiculopathy, thoracic region (principal); M51.34 Other intervertebral disc degeneration, thoracic region

== ENCOUNTER → 2019-07-30 | Outpatient (CLI) | payer MEDICARE, MEDICAID ==
--- NOTE | 2019-07-30 14:22 | REPMRS ---
Patient History The patient states she has not had a clinical breast exam in over a year. Family history of prostate cancer at age 72 in father, prostate cancer at age 60 in brother, breast cancer in paternal aunt. Took unspecified hormones for 20 years. Digital Woman Screen Mammo: July 30, 2019 - Exam #: [id number] Bilateral CC and MLO view(s) were taken. Technologists: Mary Jerry RT; Renata Trotter, Technologist Prior study comparison: June 25, 2018, bilateral digital woman screen mammo performed at [facility]. June 24, 2017, digital woman screen mammo performed at [facility]. June 17, 2016, digital woman screen mammo performed at [facility]. FINDINGS: There are scattered fibroglandular densities. There has been no change in the appearance of the mammogram from the prior studies. There is a mild amount of scattered fibroglandular density which is fairly symmetric. There is no interval development of dominant mass, architectural distortion, or grouped microcalcification suggestive of malignancy. 3-D tomosynthesis shows no additional findings. Assessment: BI-RADS/ACR category 1 mammogram. Negative Mammogram. Recommendation Routine screening mammogram of both breasts in 1 year (for women over age 40). This patient's Lifetime Breast Cancer Risk is estimated at 5.1 %. This mammogram was interpreted with the aid of an FDA-approved computer-aided dectection system. Electronically Signed By: Floyd Sen MD 07/30/19 [id number]
== END ==
LOC: M WHC 10:58
PROVIDERS: ATTEND Family Medicine
DX: Z12.31 Encounter for screening mammogram for malignant neoplasm of breast (principal)

== ENCOUNTER → 2019-09-06 | Outpatient (REF) | payer MEDICARE, MEDICAID ==
[2019-09-06 13:54] LABS: BASO # 0.1 10^3/uL (0.0-0.2); BASO % 0.6 % (0.0-1.0); EOS # 0.4 10^3/uL (0.0-0.5); EOS % 4.7 % (0.0-3.0); HEMATOCRIT 41.2 % (36.0-47.0); LYMPH # 1.7 10^3/uL (1.5-5.0); LYMPH % 22.6 % (24.0-44.0); MEAN CORPUSCULAR HEMOGLOBIN 26.6 pg (27.0-33.0); MEAN CORPUSCULAR HGB CONC 31.6 g/dl (32.0-36.5); MEAN CORPUSCULAR VOLUME 84.4 fl (80.0-96.0); MONO # 0.8 10^3/uL (0.0-0.8); MONO % 10.1 % (0.0-5.0); NEUTROPHILS # 4.8 10^3/uL (1.5-8.5); NEUTROPHILS % 61.7 % (36.0-66.0); PLATELET COUNT, AUTOMATED 346 10^3/uL (150-450); RED BLOOD COUNT 4.88 10^6/uL (4.00-5.40); WHITE BLOOD COUNT 7.7 10^3/uL (4.0-10.0)
[2019-09-06 14:17] LABS: ALBUMIN 3.9 GM/DL (3.2-5.2); ALT/SGPT 28 U/L (12-78); BILIRUBIN,TOTAL 0.5 MG/DL (0.2-1.0); BLOOD UREA NITROGEN 16 MG/DL (7-18); C REACTIVE PROTEIN QUANTITATIV 1.27 MG/DL (0.00-0.30); CALCIUM LEVEL 9.3 MG/DL (8.8-10.2); CARBON DIOXIDE LEVEL 31 MEQ/L (21-32); CHLORIDE LEVEL 102 MEQ/L (98-107); CREATININE FOR GFR 0.89 MG/DL (0.55-1.30); GLOMERULAR FILTRATION RATE > 60.0 (>39); GLUCOSE, FASTING 89 MG/DL (70-100); POTASSIUM SERUM 4.4 MEQ/L (3.5-5.1); SODIUM LEVEL 138 MEQ/L (136-145); TOTAL PROTEIN 7.3 GM/DL (6.4-8.2)
[2019-09-06 14:30] LABS: ERYTHROCYTE SEDIMENTATION RATE 45 mm/hr (0-30)
== END ==
LOC: M LABDRWAD 12:59
PROVIDERS: ATTEND Internal Medicine Rheumatology
DX: M06.9 Rheumatoid arthritis, unspecified (principal)

== ENCOUNTER → 2019-10-05 | Outpatient (REF) | payer MEDICARE, MEDICAID ==
[2019-10-05 16:27] LABS: BASO % 0.2 % (0.0-1.0); EOS # 0.2 10^3/uL (0.0-0.5); HEMATOCRIT 42.1 % (36.0-47.0); HEMOGLOBIN 13.6 g/dl (12.0-15.5); LYMPH # 2.1 10^3/uL (1.5-5.0); MEAN CORPUSCULAR HEMOGLOBIN 26.3 pg (27.0-33.0); MEAN CORPUSCULAR HGB CONC 32.3 g/dl (32.0-36.5); MEAN CORPUSCULAR VOLUME 81.3 fl (80.0-96.0); MONO # 0.8 10^3/uL (0.0-0.8); MONO % 9.9 % (0.0-5.0); NEUTROPHILS % 61.5 % (36.0-66.0); PLATELET COUNT, AUTOMATED 399 10^3/uL (150-450); RED BLOOD COUNT 5.18 10^6/uL (4.00-5.40); WHITE BLOOD COUNT 8.1 10^3/uL (4.0-10.0)
[2019-10-05 16:39] LABS: ALBUMIN 3.8 GM/DL (3.2-5.2); ALT/SGPT 25 U/L (12-78); BILIRUBIN,TOTAL 0.6 MG/DL (0.2-1.0); BLOOD UREA NITROGEN 19 MG/DL (7-18); C REACTIVE PROTEIN QUANTITATIV 2.05 MG/DL (0.00-0.30); CALCIUM LEVEL 9.2 MG/DL (8.8-10.2); CARBON DIOXIDE LEVEL 33 MEQ/L (21-32); CHLORIDE LEVEL 97 MEQ/L (98-107); CREATININE FOR GFR 0.89 MG/DL (0.55-1.30); FREE T4 1.19 NG/DL (0.76-1.46); GLOMERULAR FILTRATION RATE > 60.0 (>39); GLUCOSE, FASTING 84 MG/DL (70-100); SODIUM LEVEL 134 MEQ/L (136-145); TOTAL PROTEIN 7.8 GM/DL (6.4-8.2)
[2019-10-05 16:41] LABS: PTH INTACT 83.2 PG/ML (18.5-88.0); TOTAL 25(OH) VITAMIN D 100.1 NG/ML (30.0-100.0); VITAMIN B12 LEVEL 837 PG/ML (247-911)
== END ==
LOC: M LABDRWAD 16:08
PROVIDERS: ATTEND Family Medicine
DX: D50.9 Iron deficiency anemia, unspecified (principal); E03.9 Hypothyroidism, unspecified; E55.9 Vitamin D deficiency, unspecified; M06.9 Rheumatoid arthritis, unspecified; Z79.899 Other long term (current) drug therapy

== ENCOUNTER 2019-12-20 14:56 | Outpatient (CLI) | payer MEDICARE, MEDICAID ==
[~2019-12-20] VITALS: Ht 157.5 cm; Wt 79.0 kg
[2019-12-20] MEDS ORDERED: ZOLEDRONIC ACID 5 MG in IV 1 EA IV ONE (15:00)
[2019-12-20 15:05] VITALS: BP 122/66
[2019-12-20 16:00] VITALS: BP 116/66
== END 2019-12-20 16:00 | disposition home or self-care (01) ==
LOC: M INFU 14:56
PROVIDERS: ATTEND Family Medicine
DX: M81.0 Age-related osteoporosis without current pathological fracture (principal)
CPT/HCPCS: 96365; J3489

== ENCOUNTER → 2020-01-10 | Outpatient (REF) | payer MEDICARE, MEDICAID ==
[~2020-01-10] MED LIST changes: -ASPI81TA85 PO; +ASPI81TA86 PO
[2020-01-10 17:51] LABS: BASO # 0.1 10^3/uL (0.0-0.2); BASO % 0.7 % (0.0-1.0); EOS # 0.3 10^3/uL (0.0-0.5); EOS % 4.1 % (0.0-3.0); HEMATOCRIT 41.1 % (36.0-47.0); HEMOGLOBIN 13.4 g/dl (12.0-15.5); LYMPH # 1.9 10^3/uL (1.5-5.0); LYMPH % 24.6 % (24.0-44.0); MEAN CORPUSCULAR HEMOGLOBIN 27.3 pg (27.0-33.0); MEAN CORPUSCULAR HGB CONC 32.6 g/dl (32.0-36.5); MEAN CORPUSCULAR VOLUME 83.9 fl (80.0-96.0); MONO # 0.8 10^3/uL (0.0-0.8); MONO % 10.9 % (0.0-5.0); NEUTROPHILS # 4.5 10^3/uL (1.5-8.5); NEUTROPHILS % 59.3 % (36.0-66.0); PLATELET COUNT, AUTOMATED 385 10^3/uL (150-450); WHITE BLOOD COUNT 7.6 10^3/uL (4.0-10.0)
[2020-01-10 17:59] LABS: ALBUMIN 4.2 GM/DL (3.2-5.2); BILIRUBIN,TOTAL 0.6 MG/DL (0.2-1.0); C REACTIVE PROTEIN QUANTITATIV 1.2 MG/DL (0.00-0.30); CALCIUM LEVEL 9.2 MG/DL (8.8-10.2); CHOLESTEROL RISK RATIO 3.894 (<5); GLOMERULAR FILTRATION RATE 57.4 (>39); POTASSIUM SERUM 4.3 MEQ/L (3.5-5.1)
[2020-01-10 18:57] LABS: ERYTHROCYTE SEDIMENTATION RATE 19 mm/hr (0-30)
[2020-01-10 19:22] LABS: HEMOGLOBIN A1c 6.5 %
[2020-01-11 15:47] LABS: TOTAL PROTEIN,RANDOM URINE 21.2 MG/DL (0.0-12.0)
== END ==
LOC: M SFHCADAM 13:56
PROVIDERS: ATTEND Internal Medicine
DX: I50.32 Chronic diastolic (congestive) heart failure (principal); E78.2 Mixed hyperlipidemia; M06.9 Rheumatoid arthritis, unspecified; R73.01 Impaired fasting glucose

== ENCOUNTER → 2020-02-21 | Outpatient (REF) | payer MEDICARE, MEDICAID ==
[2020-04-08 16:10] LABS: APPEARANCE, URINE CLEAR (CLEAR); BACTERIA, URINE AUTO NEGATIVE (NEGATIVE); BILIRUBIN, URINE AUTO NEGATIVE (NEGATIVE); BLOOD, URINE BLOOD NEGATIVE (NEGATIVE); COLOR, URINE YELLOW (YELLOW); GLUCOSE, URINE (UA) AUTO NEGATIVE (NEGATIVE); KETONE, URINE AUTO NEGATIVE (NEGATIVE); LEUKOCYTE ESTERASE, URINE AUTO TRACE (NEGATIVE); NITRITE, URINE AUTO NEGATIVE (NEGATIVE); PROTEIN, URINE AUTO NEGATIVE (NEGATIVE); RBC, URINE AUTO 0 /HPF (0-3); SPECIFIC GRAVITY URINE AUTO 1.008 (1.002-1.035); SQUAMOUS EPITHELIAL CELL UR AU 0 /HPF (0-6); UROBILINOGEN, URINE AUTO 0.2 mg/dL (0.0-2.0); WBC, URINE AUTO 9 /HPF (0-3)
== END ==
LOC: M SFHCPLAZ 12:55
PROVIDERS: ATTEND Family Medicine
DX: R30.0 Dysuria (principal)

== ENCOUNTER → 2020-02-21 | Outpatient (REF) | payer MEDICARE, MEDICAID ==
[2020-04-17 23:53] LABS: C REACTIVE PROTEIN QUANTITATIV 1.14 MG/DL (0.00-0.30); HEPATITIS B SURFACE ANTIBODY NEGATIVE (POSITIVE); HEPATITIS B SURFACE ANTIGEN NEGATIVE (NEGATIVE); HEPATITIS C VIRUS ABY INDEX 0.1 INDEX (<0.8)
== END ==
LOC: M LABDRWAD 12:58
PROVIDERS: ATTEND Internal Medicine Rheumatology
DX: M06.9 Rheumatoid arthritis, unspecified (principal); R30.0 Dysuria
CPT/HCPCS: 36415; 81001; 85652; 86140; 86480; 86706; 86803; 87086; 87340; G0463

== ENCOUNTER → 2020-04-24 | Outpatient (REF) | payer MEDICARE, MEDICAID ==
[2020-04-24 14:57] LABS: BASO % 0.6 % (0.0-1.0); EOS # 0.2 10^3/uL (0.0-0.5); HEMATOCRIT 44.1 % (36.0-47.0); HEMOGLOBIN 13.9 g/dl (12.0-15.5); LYMPH # 1.8 10^3/uL (1.5-5.0); LYMPH % 27.2 % (24.0-44.0); MEAN CORPUSCULAR HEMOGLOBIN 26.6 pg (27.0-33.0); MEAN CORPUSCULAR HGB CONC 31.5 g/dl (32.0-36.5); MEAN CORPUSCULAR VOLUME 84.5 fl (80.0-96.0); MONO # 0.8 10^3/uL (0.0-0.8); MONO % 12.2 % (0.0-5.0); NEUTROPHILS # 3.8 10^3/uL (1.5-8.5); NEUTROPHILS % 56.9 % (36.0-66.0); PLATELET COUNT, AUTOMATED 355 10^3/uL (150-450); RED BLOOD COUNT 5.22 10^6/uL (4.00-5.40); WHITE BLOOD COUNT 6.7 10^3/uL (4.0-10.0)
[2020-04-24 15:10] LABS: ALBUMIN 3.9 GM/DL (3.2-5.2); ALT/SGPT 21 U/L (12-78); BILIRUBIN,TOTAL 0.5 MG/DL (0.2-1.0); BLOOD UREA NITROGEN 11 MG/DL (7-18); C REACTIVE PROTEIN QUANTITATIV 1.28 MG/DL (0.00-0.30); CARBON DIOXIDE LEVEL 31 MEQ/L (21-32); CHLORIDE LEVEL 102 MEQ/L (98-107); CREATININE FOR GFR 0.81 MG/DL (0.55-1.30); GLOMERULAR FILTRATION RATE > 60.0 (>39); GLUCOSE, FASTING 86 MG/DL (70-100); POTASSIUM SERUM 4.5 MEQ/L (3.5-5.1); SODIUM LEVEL 136 MEQ/L (136-145); TOTAL PROTEIN 7.5 GM/DL (6.4-8.2)
[2020-04-24 15:39] LABS: ERYTHROCYTE SEDIMENTATION RATE 21 mm/hr (0-30)
== END ==
LOC: M LABDRWAD 12:49
PROVIDERS: ATTEND Internal Medicine
DX: M06.9 Rheumatoid arthritis, unspecified (principal)

== ENCOUNTER → 2020-05-29 | Outpatient (CLI) | payer SELFPAY | LOC: M LABSMTC 12:59 | PROVIDERS: ATTEND Pediatrics | DX: Z20.828 Contact with and (suspected) exposure to other viral communicable diseases (principal) ==

== ENCOUNTER → 2020-06-20 | Outpatient (REF) | payer MEDICARE, MEDICAID ==
[2020-06-20 13:29] LABS: BASO % 0.6 % (0.0-1.0); EOS # 0.3 10^3/uL (0.0-0.5); EOS % 3.9 % (0.0-3.0); HEMATOCRIT 41.9 % (36.0-47.0); HEMOGLOBIN 13.4 g/dl (12.0-15.5); LYMPH # 1.6 10^3/uL (1.5-5.0); LYMPH % 23.1 % (24.0-44.0); MEAN CORPUSCULAR HEMOGLOBIN 27.5 pg (27.0-33.0); MONO # 0.8 10^3/uL (0.0-0.8); MONO % 11.1 % (0.0-5.0); NEUTROPHILS # 4.1 10^3/uL (1.5-8.5); NEUTROPHILS % 60.9 % (36.0-66.0); PLATELET COUNT, AUTOMATED 334 10^3/uL (150-450); RED BLOOD COUNT 4.87 10^6/uL (4.00-5.40); WHITE BLOOD COUNT 6.7 10^3/uL (4.0-10.0)
[2020-06-20 14:00] LABS: ALBUMIN 4.1 GM/DL (3.2-5.2); ALT/SGPT 29 U/L (12-78); BILIRUBIN,TOTAL 0.4 MG/DL (0.2-1.0); BLOOD UREA NITROGEN 18 MG/DL (7-18); C REACTIVE PROTEIN QUANTITATIV 1.59 MG/DL (0.00-0.30); CALCIUM LEVEL 9.4 MG/DL (8.8-10.2); CARBON DIOXIDE LEVEL 32 MEQ/L (21-32); CHLORIDE LEVEL 103 MEQ/L (98-107); CREATININE FOR GFR 0.91 MG/DL (0.55-1.30); GLOMERULAR FILTRATION RATE > 60.0 (>39); GLUCOSE, FASTING 96 MG/DL (70-100); POTASSIUM SERUM 4.4 MEQ/L (3.5-5.1); SODIUM LEVEL 137 MEQ/L (136-145); TOTAL PROTEIN 7.7 GM/DL (6.4-8.2)
[2020-06-20 14:02] LABS: ERYTHROCYTE SEDIMENTATION RATE 19 mm/hr (0-30)
== END ==
LOC: M SFHCADAM 10:42
PROVIDERS: ATTEND Internal Medicine
DX: M06.09 Rheumatoid arthritis without rheumatoid factor, multiple sites (principal)

== ENCOUNTER 2020-07-14 11:20 | Outpatient (CLI) | payer MEDICARE, MEDICAID ==
[~2020-07-14] VITALS: Ht 165.1 cm; Wt 82.9 kg
[~2020-07-14 11:20] MED LIST changes: +ALBUTEROL SULFATE 2.5 MG/0.5 ML INH NEB SOLN INH PRN; +EPINEPHrine INJ 1 MG/ML 1ML AMP IM PRN; +diphenhydrAMINE 50MG/ML VIAL (J1200) IV PRN; +methylPREDNISolone 125MG 2ML VIAL IV PRN
[2020-07-14 11:30] VITALS: BP 116/63
[2020-07-14] MEDS ORDERED: ACETAMINOPHEN TAB 650MG DOSE (2X325MG) PO ONE (11:30)
[2020-07-14] MEDS ORDERED: ABATACEPT 750 MG OVER 30 MINUTES IV ONE ×2 (11:30)
[2020-07-14] MEDS ORDERED: diphenhydrAMINE 25MG CAP PO ONE (11:30)
[2020-07-14 14:25] VITALS: BP 116/60
== END 2020-07-14 13:30 | disposition home or self-care (01) ==
LOC: M INFU 11:20
PROVIDERS: ATTEND Internal Medicine
DX: M06.09 Rheumatoid arthritis without rheumatoid factor, multiple sites (principal)
CPT/HCPCS: 96365; J0129

== ENCOUNTER → 2020-07-27 | Outpatient (REF) | payer MEDICARE, MEDICAID ==
[~2020-07-27] MED LIST changes: -ALBUTEROL SULFATE 2.5 MG/0.5 ML INH NEB SOLN INH PRN; -EPINEPHrine INJ 1 MG/ML 1ML AMP IM PRN; -diphenhydrAMINE 50MG/ML VIAL (J1200) IV PRN; -methylPREDNISolone 125MG 2ML VIAL IV PRN
[2020-07-27 13:24] LABS: CHOLESTEROL RISK RATIO 4.466 (<5); FREE T4 0.94 NG/DL (0.76-1.46); THYROID STIMULATING HORMONE 4.81 uIU/ML (0.358-3.740)
[2020-07-27 13:25] LABS: PTH INTACT 159.7 PG/ML (18.5-88.0); TOTAL 25(OH) VITAMIN D 101.8 NG/ML (30.0-100.0)
[2020-07-27 14:21] LABS: HEMOGLOBIN A1c 5.8 %
== END ==
LOC: M SFHCADAM 09:37
PROVIDERS: ATTEND Family Medicine
DX: E78.2 Mixed hyperlipidemia (principal); I10 Essential (primary) hypertension; R73.01 Impaired fasting glucose; E03.9 Hypothyroidism, unspecified; Z79.899 Other long term (current) drug therapy

== ENCOUNTER 2020-08-11 11:15 | Outpatient (CLI) | payer MEDICARE, MEDICAID ==
[~2020-08-11] VITALS: Ht 165.1 cm; Wt 82.9 kg
[~2020-08-11 11:15] MED LIST changes: +ACETAMINOPHEN TAB 650MG DOSE (2X325MG) PO ONE; +ALBUTEROL SULFATE 2.5 MG/0.5 ML INH NEB SOLN INH PRN; +EPINEPHrine INJ 1 MG/ML 1ML AMP IM PRN; +diphenhydrAMINE 25MG CAP PO ONE; +diphenhydrAMINE 50MG/ML VIAL (J1200) IV PRN; +methylPREDNISolone 125MG 2ML VIAL IV PRN
[2020-08-11 11:20] VITALS: BP 127/70
[2020-08-11] MEDS ORDERED: NS 1,000 ML IV SCH (11:30)
[2020-08-11] MEDS ORDERED: ABATACEPT 750 MG OVER 30 MINUTES IV ONE ×2 (11:30)
[2020-08-11 12:30] VITALS: BP 121/77
== END 2020-08-11 12:30 | disposition home or self-care (01) ==
LOC: M INFU 11:15
PROVIDERS: ATTEND Internal Medicine
DX: M06.09 Rheumatoid arthritis without rheumatoid factor, multiple sites (principal)
CPT/HCPCS: 96365; J0129

== ENCOUNTER → 2020-08-30 | Outpatient (CLI) | payer MEDICARE, MEDICAID ==
[~2020-08-30] MED LIST changes: -ACETAMINOPHEN TAB 650MG DOSE (2X325MG) PO ONE; -ALBUTEROL SULFATE 2.5 MG/0.5 ML INH NEB SOLN INH PRN; -EPINEPHrine INJ 1 MG/ML 1ML AMP IM PRN; -diphenhydrAMINE 25MG CAP PO ONE; -diphenhydrAMINE 50MG/ML VIAL (J1200) IV PRN; -methylPREDNISolone 125MG 2ML VIAL IV PRN
--- NOTE | 2020-08-30 11:29 | REPMRS ---
Patient History The patient states she has not had a clinical breast exam in over a year. Family history of prostate cancer at age 72 in father, prostate cancer at age 60 in brother, breast cancer in paternal aunt. Took unspecified hormones for 20 years. Digital Woman Screen Mammo: August 30, 2020 - Exam #: [id number] Bilateral CC and MLO view(s) were taken. Technologist: Mary Jerry RT Prior study comparison: July 30, 2019, bilateral digital woman screen mammo performed at [facility]. June 25, 2018, bilateral digital woman screen mammo performed at [facility]. FINDINGS: There are scattered fibroglandular densities. The Volpara volumetric breast density category is:B. There is a facial artifact, perhaps an earring, on the medial aspect of the right breast on CC view. This patient had some difficulty with positioning due to kyphosis. There has been no change in the appearance of the mammogram from the prior studies. There is a mild amount of scattered fibroglandular density which is fairly symmetric. There is no interval development of dominant mass, architectural distortion, or grouped microcalcification suggestive of malignancy. 3-D tomosynthesis shows no additional findings. Assessment: BI-RADS/ACR category 2 mammogram. Benign Findings. Recommendation Routine screening mammogram of both breasts in 1 year (for women over age 40). This patient's [facility] Lifetime Breast Cancer Risk is estimated at 4.6 %. This mammogram was interpreted with the aid of an FDA-approved computer-aided dectection system. Electronically Signed By: Floyd Sen MD 08/30/20 [id number]
== END ==
LOC: M WHC 10:28
PROVIDERS: ATTEND Family Medicine
DX: Z12.31 Encounter for screening mammogram for malignant neoplasm of breast (principal); Z80.3 Family history of malignant neoplasm of breast; Z80.42 Family history of malignant neoplasm of prostate

== ENCOUNTER 2020-09-08 11:19 | Outpatient (CLI) | payer MEDICARE, MEDICAID ==
[~2020-09-08] VITALS: Ht 165.1 cm; Wt 89.9 kg
[~2020-09-08 11:19] MED LIST changes: +ALBUTEROL SULFATE 2.5 MG/0.5 ML INH NEB SOLN INH PRN; +EPINEPHrine INJ 1 MG/ML 1ML AMP IM PRN; +diphenhydrAMINE 50MG/ML VIAL (J1200) IV PRN; +methylPREDNISolone 125MG 2ML VIAL IV PRN
[2020-09-08 11:20] VITALS: BP 146/78
[2020-09-08] MEDS ORDERED: NS 1,000 ML IV SCH (11:30)
[2020-09-08] MEDS ORDERED: ABATACEPT 750 MG OVER 30 MINUTES IV ONE ×2 (11:30)
[2020-09-08] MEDS ORDERED: ACETAMINOPHEN TAB 650MG DOSE (2X325MG) PO ONE ×2 (11:30→11:35)
[2020-09-08] MEDS ORDERED: diphenhydrAMINE 25MG CAP PO ONE (11:35)
[2020-09-08 12:35] VITALS: BP 136/65
== END 2020-09-08 12:50 | disposition home or self-care (01) ==
LOC: M INFU 11:19
PROVIDERS: ATTEND Internal Medicine
DX: M06.09 Rheumatoid arthritis without rheumatoid factor, multiple sites (principal)
CPT/HCPCS: 96365; J0129

== ENCOUNTER → 2020-09-19 | Outpatient (REF) | payer MEDICARE, MEDICAID ==
[~2020-09-19] MED LIST changes: -ALBUTEROL SULFATE 2.5 MG/0.5 ML INH NEB SOLN INH PRN; -EPINEPHrine INJ 1 MG/ML 1ML AMP IM PRN; -diphenhydrAMINE 50MG/ML VIAL (J1200) IV PRN; -methylPREDNISolone 125MG 2ML VIAL IV PRN
[2020-09-19 13:49] LABS: BASO % 0.6 % (0.0-1.0); EOS # 0.2 10^3/uL (0.0-0.5); EOS % 2.8 % (0.0-3.0); HEMATOCRIT 42.3 % (36.0-47.0); HEMOGLOBIN 13.3 g/dl (12.0-15.5); LYMPH # 1.8 10^3/uL (1.5-5.0); LYMPH % 28.5 % (24.0-44.0); MEAN CORPUSCULAR HEMOGLOBIN 26.6 pg (27.0-33.0); MEAN CORPUSCULAR HGB CONC 31.4 g/dl (32.0-36.5); MEAN CORPUSCULAR VOLUME 84.6 fl (80.0-96.0); MONO # 0.7 10^3/uL (0.0-0.8); MONO % 10.8 % (2.0-8.0); NEUTROPHILS # 3.6 10^3/uL (1.5-8.5); NEUTROPHILS % 56.8 % (36.0-66.0); PLATELET COUNT, AUTOMATED 337 10^3/uL (150-450); WHITE BLOOD COUNT 6.4 10^3/uL (4.0-10.0)
[2020-09-19 14:55] LABS: ERYTHROCYTE SEDIMENTATION RATE 16 mm/hr (0-30)
[2020-09-19 15:13] LABS: ALBUMIN 4.2 GM/DL (3.2-5.2); ALT/SGPT 25 U/L (12-78); BILIRUBIN,TOTAL 0.5 MG/DL (0.2-1.0); BLOOD UREA NITROGEN 17 MG/DL (7-18); C REACTIVE PROTEIN QUANTITATIV 1.17 MG/DL (0.00-0.30); CALCIUM LEVEL 8.9 MG/DL (8.8-10.2); CARBON DIOXIDE LEVEL 34 MEQ/L (21-32); CHLORIDE LEVEL 101 MEQ/L (98-107); CREATININE FOR GFR 0.78 MG/DL (0.55-1.30); GLOMERULAR FILTRATION RATE > 60.0 (>39); GLUCOSE, FASTING 116 MG/DL (70-100); POTASSIUM SERUM 4.4 MEQ/L (3.5-5.1); SODIUM LEVEL 138 MEQ/L (136-145); TOTAL PROTEIN 7.7 GM/DL (6.4-8.2)
== END ==
LOC: M SFHCADAM 10:26
PROVIDERS: ATTEND Family Medicine
DX: M06.09 Rheumatoid arthritis without rheumatoid factor, multiple sites (principal)

== ENCOUNTER 2020-10-06 11:10 | Outpatient (CLI) | payer MEDICARE, MEDICAID ==
[~2020-10-06] VITALS: Ht 165.1 cm; Wt 82.9 kg
[~2020-10-06 11:10] MED LIST changes: +ALBUTEROL SULFATE 2.5 MG/0.5 ML INH NEB SOLN INH PRN; +EPINEPHrine INJ 1 MG/ML 1ML AMP IM PRN; +diphenhydrAMINE 50MG/ML VIAL (J1200) IV PRN; +methylPREDNISolone 125MG 2ML VIAL IV PRN
[2020-10-06 11:23] VITALS: BP 159/90
[2020-10-06] MEDS ORDERED: ACETAMINOPHEN TAB 650MG DOSE (2X325MG) PO ONE (11:30)
[2020-10-06] MEDS ORDERED: diphenhydrAMINE 25MG CAP PO ONE (11:30)
[2020-10-06] MEDS ORDERED: ABATACEPT 750 MG OVER 30 MINUTES IV ONE ×2 (12:00)
[2020-10-06 12:51] VITALS: BP 127/68
== END 2020-10-06 12:50 | disposition home or self-care (01) ==
LOC: M INFU 11:10
PROVIDERS: ATTEND Internal Medicine
DX: M06.09 Rheumatoid arthritis without rheumatoid factor, multiple sites (principal)
CPT/HCPCS: 96365; J0129

== ENCOUNTER → 2020-10-10 | Outpatient (REF) | payer MEDICARE, MEDICAID ==
[~2020-10-10] MED LIST changes: -ALBUTEROL SULFATE 2.5 MG/0.5 ML INH NEB SOLN INH PRN; -EPINEPHrine INJ 1 MG/ML 1ML AMP IM PRN; -diphenhydrAMINE 50MG/ML VIAL (J1200) IV PRN; -methylPREDNISolone 125MG 2ML VIAL IV PRN
[2020-10-10 17:57] LABS: ALBUMIN 4.4 GM/DL (3.2-5.2); ALT/SGPT 34 U/L (12-78); BILIRUBIN,TOTAL 0.4 MG/DL (0.2-1.0); BLOOD UREA NITROGEN 20 MG/DL (7-18); CARBON DIOXIDE LEVEL 30 MEQ/L (21-32); CHLORIDE LEVEL 102 MEQ/L (98-107); CHOLESTEROL LEVEL 159 MG/DL (<200); CHOLESTEROL RISK RATIO 3.785 (<5); CREATININE FOR GFR 0.76 MG/DL (0.55-1.30); FERRITIN 28 NG/ML (8-252); FREE T4 1.17 NG/DL (0.76-1.46); GLOMERULAR FILTRATION RATE > 60.0 (>39); GLUCOSE, FASTING 82 MG/DL (70-100); HDL CHOLESTEROL 42 MG/DL (>40); LDL CHOLESTEROL 89 MG/DL (<100); NON-HDL-C 117 MG/DL; NT-PRO BNP 57 PG/ML (<450); SODIUM LEVEL 137 MEQ/L (136-145); TOTAL PROTEIN 7.2 GM/DL (6.4-8.2); TRIGLYCERIDES LEVEL 141 MG/DL (<150)
[2020-10-10 17:59] LABS: TOTAL 25(OH) VITAMIN D 95.8 NG/ML (30.0-100.0)
[2020-10-10 18:00] LABS: HEMOGLOBIN A1c 5.7 %
== END ==
LOC: M SFHCADAM 14:29
PROVIDERS: ATTEND Family Medicine
DX: E78.2 Mixed hyperlipidemia (principal); R73.01 Impaired fasting glucose; D50.9 Iron deficiency anemia, unspecified; E03.9 Hypothyroidism, unspecified; E55.9 Vitamin D deficiency, unspecified; Z79.899 Other long term (current) drug therapy

== ENCOUNTER → 2020-10-30 | Outpatient (CLI) | payer MEDICARE, MEDICAID ==
--- NOTE | 2020-10-30 10:39 | DEXAMM ---
INDICATION: M81.0 OSTEOPOROSIS. COMPARISON: 07/28/2018 as well as other prior exams. TECHNIQUE: Bone density was measured using dual-energy x-ray absorptiometry (DEXA). FINDINGS: AP SPINE L1-L4 BMD 1.192 g/cm2 Young Adult T-Score 0.0 Age Matched Z-Score 1.8. LT FEMUR, TOTAL BMD 0.863 g/cm2 Young Adult T-Score -1.2 Age Matched Z-Score 0.7. LT NECK BMD 0.714 g/cm2 Young Adult T-Score -2.3 Age Matched Z-Score -0.3. RT FEMUR, TOTAL BMD 0.864 g/cm2 Young Adult T-Score -1.1 Age Matched Z-Score 0.7. RT NECK BMD 0.793 g/cm2 Young Adult T-Score -1.8 Age Matched Z-Score 0.3. IMPRESSION: There is normal bone density of the spine. There is low bone density of the left hip. There is low bone density of the right hip. The density of the spine has increased 0.8% since the initial exam on 09/29/2001. The density of the spine increased 1.0% since most recent exam on 07/28/2018. The density of the left hip has decreased 10.4% since initial exam on 09/29/2001. The density of the left hip has increased 4.2% since most recent exam on 07/28/2018. The density of the right hip has decreased 15.4% since the initial exam on 09/29/2001. The density of the right hip has increased 5.5% since the most recent exam on 07/28/2018. FOLLOW-UP: Recommendation for the next bone density exam: 2 years. <Electronically signed by Brent Garza > 10/30/20 [id number]
== END ==
LOC: M WHC 09:26
PROVIDERS: ATTEND Family Medicine
DX: M85.89 Other specified disorders of bone density and structure, multiple sites (principal)

== ENCOUNTER 2020-11-03 11:20 | Outpatient (CLI) | payer MEDICARE, MEDICAID ==
[~2020-11-03] VITALS: Ht 165.1 cm; Wt 82.9 kg
[~2020-11-03 11:20] MED LIST changes: +ALBUTEROL SULFATE 2.5 MG/0.5 ML INH NEB SOLN INH PRN; +EPINEPHrine INJ 1 MG/ML 1ML AMP IM PRN; +diphenhydrAMINE 50MG/ML VIAL (J1200) IV PRN; +methylPREDNISolone 125MG 2ML VIAL IV PRN
[2020-11-03 11:25] VITALS: BP 156/80
[2020-11-03] MEDS ORDERED: ABATACEPT 750 MG OVER 30 MINUTES IV ONE ×2 (11:30)
[2020-11-03] MEDS ORDERED: diphenhydrAMINE 25MG CAP PO ONE (11:30)
[2020-11-03] MEDS ORDERED: ACETAMINOPHEN TAB 650MG DOSE (2X325MG) PO ONE (11:30)
[2020-11-03 12:45] VITALS: BP 144/73
== END 2020-11-03 12:45 | disposition home or self-care (01) ==
LOC: M INFU 11:20
PROVIDERS: ATTEND Internal Medicine
DX: M06.09 Rheumatoid arthritis without rheumatoid factor, multiple sites (principal)
CPT/HCPCS: 96365; J0129

== ENCOUNTER 2020-12-01 11:14 | Outpatient (CLI) | payer MEDICARE, MEDICAID ==
[~2020-12-01] VITALS: Ht 165.1 cm; Wt 82.9 kg
[~2020-12-01 11:14] MED LIST changes: -ALBUTEROL SULFATE 2.5 MG/0.5 ML INH NEB SOLN INH PRN; -EPINEPHrine INJ 1 MG/ML 1ML AMP IM PRN; +diphenhydrAMINE 25MG CAP PO ONE; -diphenhydrAMINE 50MG/ML VIAL (J1200) IV PRN; -methylPREDNISolone 125MG 2ML VIAL IV PRN
[2020-12-01 11:20] VITALS: BP 149/78
[2020-12-01] MEDS ORDERED: diphenhydrAMINE 50MG/ML VIAL (J1200) IV PRN (11:30)
[2020-12-01] MEDS ORDERED: EPINEPHrine INJ 1 MG/ML 1ML AMP IM PRN (11:30)
[2020-12-01] MEDS ORDERED: ACETAMINOPHEN TAB 650MG DOSE (2X325MG) PO ONE (11:30)
[2020-12-01] MEDS ORDERED: ALBUTEROL SULFATE 2.5 MG/0.5 ML INH NEB SOLN INH PRN (11:30)
[2020-12-01] MEDS ORDERED: ABATACEPT 750 MG OVER 30 MINUTES IV ONE ×2 (11:30)
[2020-12-01] MEDS ORDERED: methylPREDNISolone 125MG 2ML VIAL IV PRN (11:30)
[2020-12-01 12:13] LABS: BASO % 0.5 % (0.0-1.0); EOS # 0.1 10^3/uL (0.0-0.5); EOS % 1.8 % (0.0-3.0); HEMATOCRIT 40.6 % (36.0-47.0); HEMOGLOBIN 13.3 g/dl (12.0-15.5); LYMPH # 1.9 10^3/uL (1.5-5.0); LYMPH % 30.4 % (24.0-44.0); MEAN CORPUSCULAR HEMOGLOBIN 27.3 pg (27.0-33.0); MEAN CORPUSCULAR HGB CONC 32.8 g/dl (32.0-36.5); MEAN CORPUSCULAR VOLUME 83.2 fl (80.0-96.0); MONO # 0.6 10^3/uL (0.0-0.8); MONO % 9.1 % (2.0-8.0); NEUTROPHILS # 3.6 10^3/uL (1.5-8.5); PLATELET COUNT, AUTOMATED 348 10^3/uL (150-450); RED BLOOD COUNT 4.88 10^6/uL (4.00-5.40); WHITE BLOOD COUNT 6.2 10^3/uL (4.0-10.0)
[2020-12-01 12:42] VITALS: BP 146/74
[2020-12-01 13:11] LABS: ALBUMIN 4.1 GM/DL (3.2-5.2); ALT/SGPT 32 U/L (12-78); BILIRUBIN,TOTAL 0.4 MG/DL (0.2-1.0); BLOOD UREA NITROGEN 12 MG/DL (7-18); C REACTIVE PROTEIN QUANTITATIV 1.33 MG/DL (0.00-0.30); CALCIUM LEVEL 9.5 MG/DL (8.8-10.2); CARBON DIOXIDE LEVEL 28 MEQ/L (21-32); CHLORIDE LEVEL 102 MEQ/L (98-107); CREATININE FOR GFR 0.72 MG/DL (0.55-1.30); GLOMERULAR FILTRATION RATE > 60.0 (>39); GLUCOSE, FASTING 114 MG/DL (70-100); POTASSIUM SERUM 3.8 MEQ/L (3.5-5.1); RHEUMATOID FACTOR QUANT < 10.0 IU/ML (<15.0); SODIUM LEVEL 137 MEQ/L (136-145); TOTAL PROTEIN 7.5 GM/DL (6.4-8.2)
[2020-12-01 13:21] LABS: ERYTHROCYTE SEDIMENTATION RATE 24 mm/hr (0-30)
[2020-12-03 04:06] LABS: ANA (HEP2) Positive (.); CYCLIC CITRULLINATED PEPTIDE 4 units (0-19)
== END 2020-12-01 12:45 | disposition home or self-care (01) ==
LOC: M INFU 11:14
PROVIDERS: ATTEND Internal Medicine
DX: M06.09 Rheumatoid arthritis without rheumatoid factor, multiple sites (principal)
CPT/HCPCS: 80053; 85025; 85652; 86038; 86140; 86200; 86431; 96365; J0129

== ENCOUNTER 2020-12-29 11:30 | Outpatient (CLI) | payer MEDICARE, MEDICAID ==
[~2020-12-29] VITALS: Ht 165.1 cm; Wt 82.9 kg
[~2020-12-29 11:30] MED LIST changes: +ABATACEPT 750 MG OVER 30 MINUTES IV ONE; +ACETAMINOPHEN TAB 650MG DOSE (2X325MG) PO ONE; +ALBUTEROL SULFATE 2.5 MG/0.5 ML INH NEB SOLN INH PRN; +EPINEPHrine INJ 1 MG/ML 1ML AMP IM PRN; +diphenhydrAMINE 50MG/ML VIAL (J1200) IV PRN; +methylPREDNISolone 125MG 2ML VIAL IV PRN
[2020-12-29 11:40] VITALS: BP 122/67
[2020-12-29 12:28] VITALS: BP 128/58
== END 2020-12-29 12:35 | disposition home or self-care (01) ==
LOC: M INFU 11:30
PROVIDERS: ATTEND Internal Medicine Rheumatology
DX: M06.9 Rheumatoid arthritis, unspecified (principal)
CPT/HCPCS: 96365; J0129

== ENCOUNTER 2021-01-11 15:31 | Outpatient (CLI) | payer MEDICARE, MEDICAID ==
[~2021-01-11] VITALS: Ht 165.1 cm; Wt 81.0 kg
[~2021-01-11 15:31] MED LIST changes: -ABATACEPT 750 MG OVER 30 MINUTES IV ONE; -ACETAMINOPHEN TAB 650MG DOSE (2X325MG) PO ONE; -ALBUTEROL SULFATE 2.5 MG/0.5 ML INH NEB SOLN INH PRN; -EPINEPHrine INJ 1 MG/ML 1ML AMP IM PRN; +ZOLEDRONIC ACID 5 MG in IV 1 EA IV ONE; -diphenhydrAMINE 25MG CAP PO ONE; -diphenhydrAMINE 50MG/ML VIAL (J1200) IV PRN; -methylPREDNISolone 125MG 2ML VIAL IV PRN
[2021-01-11 15:35] VITALS: BP 137/69
[2021-01-11 16:20] VITALS: BP 147/74
== END 2021-01-11 16:30 | disposition home or self-care (01) ==
LOC: M INFU 15:31
PROVIDERS: ATTEND Family Medicine
DX: M81.0 Age-related osteoporosis without current pathological fracture (principal)
CPT/HCPCS: 96365; J3489

== ENCOUNTER 2021-01-26 11:22 | Outpatient (CLI) | payer MEDICARE, MEDICAID ==
[~2021-01-26] VITALS: Ht 157.5 cm; Wt 78.1 kg
[~2021-01-26 11:22] MED LIST changes: +ALBUTEROL SULFATE 2.5 MG/0.5 ML INH NEB SOLN INH PRN; +EPINEPHrine INJ 1 MG/ML 1ML AMP IM PRN; -ZOLEDRONIC ACID 5 MG in IV 1 EA IV ONE; +diphenhydrAMINE 50MG/ML VIAL (J1200) IV PRN; +methylPREDNISolone 125MG 2ML VIAL IV PRN
[2021-01-26 11:25] VITALS: BP 135/67
[2021-01-26] MEDS ORDERED: NS 1,000 ML IV SCH (11:30)
[2021-01-26] MEDS ORDERED: ABATACEPT 750 MG OVER 30 MINUTES IV ONE ×2 (11:30)
[2021-01-26 12:30] VITALS: BP 123/68
== END 2021-01-26 12:40 | disposition home or self-care (01) ==
LOC: M INFU 11:22
PROVIDERS: ATTEND Internal Medicine
DX: M06.09 Rheumatoid arthritis without rheumatoid factor, multiple sites (principal)
CPT/HCPCS: 96365; J0129

== ENCOUNTER → 2021-02-06 | Outpatient (CLI) | payer MEDICARE, MEDICAID ==
[~2021-02-06] MED LIST changes: -ALBUTEROL SULFATE 2.5 MG/0.5 ML INH NEB SOLN INH PRN; -EPINEPHrine INJ 1 MG/ML 1ML AMP IM PRN; -diphenhydrAMINE 50MG/ML VIAL (J1200) IV PRN; -methylPREDNISolone 125MG 2ML VIAL IV PRN
--- NOTE | 2021-02-06 12:29 | REP ---
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 TECHNIQUE: There are four views of the right hand and four views of the left hand. FINDINGS: Right hand: There is moderate joint space narrowing of the D IP articulations of the index through 5th digits and of the IP articulation of the thumb. There is osteophytic formation at the thumb IP articulation in index finger D IP articulation. There is mild joint space narrowing of the PIP articulations. The MCP articulations demonstrate no cortical erosion, subluxation, joint space narrowing, or other abnormality. The carpal joint spaces are unremarkable except for slight widening of the joint space between the scaphoid and capitate. This may represent ligamentous laxity. Left hand: There is moderate joint space narrowing of the D IP articulations. There is mild joint space narrowing of the PIP articulations. The MCP articulations and carpal articulations are unremarkable. 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 <Electronically signed by Brent Colunga > 02/06/21 [id number]
--- NOTE | 2021-02-06 12:34 | REP ---
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 TECHNIQUE: There are four views of the right foot and four views of the left foot. FINDINGS: Right foot: The digits are flexed, therefore, is difficult to determine joint space narrowing of the phalanges. The MTP articulations are unremarkable. The tarsal articulations are unremarkable. There is diffuse demineralization. There is a large calcaneal plantar spur and a small calcaneal Achilles spur. Left foot: The digits are flexed, therefore, is difficult to determine joint space narrowing of the phalanges. The MTP articulations are unremarkable. The tarsal articulations are unremarkable. There is diffuse demineralization. There is a large calcaneal plantar spur and moderate Achilles spur. There is internal fixation of the distal tibia and fibula. IMPRESSION: Findings are most compatible with bilateral foot osteoarthritis. There are calcaneal spurs bilaterally. There is internal fixation of the distal left tibia and fibula. There is diffuse demineralization. <Electronically signed by Brent Colunga > 02/06/21 [id number]
== END ==
LOC: M ADAMS 10:03
PROVIDERS: ATTEND Internal Medicine Rheumatology
DX: M19.041 Primary osteoarthritis, right hand (principal); M19.042 Primary osteoarthritis, left hand; M19.071 Primary osteoarthritis, right ankle and foot; M19.072 Primary osteoarthritis, left ankle and foot; M77.31 Calcaneal spur, right foot; M77.32 Calcaneal spur, left foot; M06.09 Rheumatoid arthritis without rheumatoid factor, multiple sites; R73.01 Impaired fasting glucose

== ENCOUNTER → 2021-02-06 | Outpatient (REF) | payer MEDICARE, MEDICAID ==
[2021-02-06 14:00] LABS: BASO % 0.5 % (0.0-1.0); EOS # 0.2 10^3/uL (0.0-0.5); EOS % 2.6 % (0.0-3.0); HEMATOCRIT 43.4 % (36.0-47.0); HEMOGLOBIN 14.3 g/dl (12.0-15.5); LYMPH % 23.7 % (24.0-44.0); MEAN CORPUSCULAR HGB CONC 32.9 g/dl (32.0-36.5); MEAN CORPUSCULAR VOLUME 84.9 fl (80.0-96.0); MONO # 0.8 10^3/uL (0.0-0.8); MONO % 9.2 % (2.0-8.0); NEUTROPHILS # 5.4 10^3/uL (1.5-8.5); NEUTROPHILS % 63.5 % (36.0-66.0); PLATELET COUNT, AUTOMATED 374 10^3/uL (150-450); RED BLOOD COUNT 5.11 10^6/uL (4.00-5.40); WHITE BLOOD COUNT 8.5 10^3/uL (4.0-10.0)
[2021-02-06 14:45] LABS: ERYTHROCYTE SEDIMENTATION RATE 16 mm/hr (0-30)
[2021-02-06 15:31] LABS: ALBUMIN 4.2 GM/DL (3.2-5.2); ALT/SGPT 31 U/L (12-78); BILIRUBIN,TOTAL 0.7 MG/DL (0.2-1.0); BLOOD UREA NITROGEN 18 MG/DL (7-18); C REACTIVE PROTEIN QUANTITATIV 0.87 MG/DL (0.00-0.30); CALCIUM LEVEL 9.7 MG/DL (8.8-10.2); CARBON DIOXIDE LEVEL 30 MEQ/L (21-32); CHLORIDE LEVEL 96 MEQ/L (98-107); CREATININE FOR GFR 0.84 MG/DL (0.55-1.30); GLOMERULAR FILTRATION RATE > 60.0 (>39); GLUCOSE, FASTING 102 MG/DL (70-100); POTASSIUM SERUM 4.5 MEQ/L (3.5-5.1); RHEUMATOID FACTOR QUANT < 10.0 IU/ML (<15.0); SODIUM LEVEL 135 MEQ/L (136-145); TOTAL PROTEIN 7.6 GM/DL (6.4-8.2)
[2021-02-08 00:10] LABS: ANA (HEP2) Positive (.); CYCLIC CITRULLINATED PEPTIDE 5 units (0-19)
== END ==
LOC: M SFHCADAM 09:59
PROVIDERS: ATTEND Internal Medicine Rheumatology
DX: M06.09 Rheumatoid arthritis without rheumatoid factor, multiple sites (principal); R73.01 Impaired fasting glucose

== ENCOUNTER 2021-02-23 11:28 | Outpatient (CLI) | payer MEDICARE, MEDICAID ==
[~2021-02-23] VITALS: Ht 157.5 cm; Wt 78.1 kg
[~2021-02-23 11:28] MED LIST changes: +ALBUTEROL SULFATE 2.5 MG/0.5 ML INH NEB SOLN INH PRN; +EPINEPHrine INJ 1 MG/ML 1ML AMP IM PRN; +diphenhydrAMINE 50MG/ML VIAL (J1200) IV PRN; +methylPREDNISolone 125MG 2ML VIAL IV PRN
[2021-02-23] MEDS ORDERED: ABATACEPT 750 MG OVER 30 MINUTES IV ONE ×2 (11:30)
[2021-02-23] MEDS ORDERED: NS 1,000 ML IV SCH (11:30)
[2021-02-23 11:40] VITALS: BP 142/82
[2021-02-23 12:40] VITALS: BP 117/65
== END 2021-02-23 12:45 | disposition home or self-care (01) ==
LOC: M INFU 11:28
PROVIDERS: ATTEND Internal Medicine Rheumatology
DX: M06.09 Rheumatoid arthritis without rheumatoid factor, multiple sites (principal)
CPT/HCPCS: 96365; J0129

== ENCOUNTER 2021-03-23 11:59 | Outpatient (CLI) | payer MEDICARE, MEDICAID ==
[~2021-03-23] VITALS: Ht 165.1 cm; Wt 81.1 kg
[~2021-03-23 11:59] MED LIST changes: +ABATACEPT 750 MG OVER 30 MINUTES IV ONE; -MOME50SP; +NASO50SP3
[2021-03-23 12:00] VITALS: BP 125/70
[2021-03-23 13:40] VITALS: BP 114/59
== END 2021-03-23 13:40 | disposition home or self-care (01) ==
LOC: M INFU 11:59
PROVIDERS: ATTEND Internal Medicine
DX: M06.09 Rheumatoid arthritis without rheumatoid factor, multiple sites (principal)
CPT/HCPCS: 96365; J0129

== ENCOUNTER → 2021-04-03 | Outpatient (REF) | payer MEDICARE, MEDICAID ==
[~2021-04-03] MED LIST changes: -ABATACEPT 750 MG OVER 30 MINUTES IV ONE; -ALBUTEROL SULFATE 2.5 MG/0.5 ML INH NEB SOLN INH PRN; -EPINEPHrine INJ 1 MG/ML 1ML AMP IM PRN; +MOME50SP; -NASO50SP3; -diphenhydrAMINE 50MG/ML VIAL (J1200) IV PRN; -methylPREDNISolone 125MG 2ML VIAL IV PRN
[2021-04-03 12:40] LABS: BASO % 0.5 % (0.0-1.0); EOS # 0.2 10^3/uL (0.0-0.5); EOS % 3.5 % (0.0-3.0); HEMATOCRIT 41.2 % (36.0-47.0); HEMOGLOBIN 13.5 g/dl (12.0-15.5); LYMPH # 1.6 10^3/uL (1.5-5.0); MEAN CORPUSCULAR HEMOGLOBIN 28.5 pg (27.0-33.0); MEAN CORPUSCULAR HGB CONC 32.8 g/dl (32.0-36.5); MEAN CORPUSCULAR VOLUME 87.1 fl (80.0-96.0); MONO # 0.7 10^3/uL (0.0-0.8); MONO % 10.1 % (2.0-8.0); NEUTROPHILS % 61.3 % (36.0-66.0); PLATELET COUNT, AUTOMATED 310 10^3/uL (150-450); RED BLOOD COUNT 4.73 10^6/uL (4.00-5.40); WHITE BLOOD COUNT 6.5 10^3/uL (4.0-10.0)
[2021-04-03 13:01] LABS: ALBUMIN 3.7 GM/DL (3.2-5.2); ALT/SGPT 27 U/L (12-78); BILIRUBIN,TOTAL 0.5 MG/DL (0.2-1.0); BLOOD UREA NITROGEN 22 MG/DL (7-18); CALCIUM LEVEL 9.1 MG/DL (8.8-10.2); CARBON DIOXIDE LEVEL 30 MEQ/L (21-32); CHLORIDE LEVEL 103 MEQ/L (98-107); CHOLESTEROL LEVEL 162 MG/DL (<200); CHOLESTEROL RISK RATIO 3.767 (<5); CREATININE FOR GFR 0.74 MG/DL (0.55-1.30); FERRITIN 42 NG/ML (8-252); GLOMERULAR FILTRATION RATE > 60.0 (>39); GLUCOSE, FASTING 97 MG/DL (70-100); HDL CHOLESTEROL 43 MG/DL (>40); LDL CHOLESTEROL 88 MG/DL (<100); NON-HDL-C 119 MG/DL; POTASSIUM SERUM 4.9 MEQ/L (3.5-5.1); SODIUM LEVEL 137 MEQ/L (136-145); TRIGLYCERIDES LEVEL 156 MG/DL (<150)
[2021-04-03 13:08] LABS: MALB URINE SIEMENS 7.2 MG/L; MAU/CREAT RATIO 9.2 MCG/MG (0.0-30.0); PTH INTACT 97.6 PG/ML (18.5-88.0); TOTAL 25(OH) VITAMIN D 88.3 NG/ML (30.0-100.0)
== END ==
LOC: M SFHCADAM 09:47
PROVIDERS: ATTEND Family Medicine
DX: D50.9 Iron deficiency anemia, unspecified (principal); R73.01 Impaired fasting glucose; E55.9 Vitamin D deficiency, unspecified; E78.00 Pure hypercholesterolemia, unspecified

== ENCOUNTER 2021-04-20 11:07 | Outpatient (CLI) | payer MEDICARE, MEDICAID ==
[~2021-04-20 11:07] MED LIST changes: +EPINEPHrine INJ 1 MG/ML 1ML AMP IM PRN; +diphenhydrAMINE 50MG/ML VIAL (J1200) IV PRN; +methylPREDNISolone 125MG 2ML VIAL IV PRN
[2021-04-20 11:28] VITALS: BP 107/57
[2021-04-20] MEDS ORDERED: ALBUTEROL SULFATE 2.5 MG/0.5 ML INH NEB SOLN INH PRN (11:30)
[2021-04-20] MEDS ORDERED: ABATACEPT 750 MG OVER 30 MINUTES IV ONE ×2 (11:30)
[2021-04-20 13:25] VITALS: BP 117/78
== END 2021-04-20 13:30 | disposition home or self-care (01) ==
LOC: M INFU 11:07
PROVIDERS: ATTEND Internal Medicine
DX: M06.09 Rheumatoid arthritis without rheumatoid factor, multiple sites (principal)
CPT/HCPCS: 96365; J0129

== ENCOUNTER 2021-05-18 10:58 | Outpatient (CLI) | payer MEDICARE, MEDICAID ==
[~2021-05-18] VITALS: Ht 165.1 cm; Wt 81.1 kg
[~2021-05-18 10:58] MED LIST changes: +ALBUTEROL SULFATE 2.5 MG/0.5 ML INH NEB SOLN INH PRN
[2021-05-18 11:05] VITALS: BP 136/84
[2021-05-18] MEDS ORDERED: ABATACEPT 750 MG OVER 30 MINUTES IV ONE ×2 (11:30)
[2021-05-18 12:35] VITALS: BP 138/72
== END 2021-05-18 12:35 | disposition home or self-care (01) ==
LOC: M INFU 10:58
PROVIDERS: ATTEND Internal Medicine Rheumatology
DX: M06.9 Rheumatoid arthritis, unspecified (principal)
CPT/HCPCS: 96365; J0129

== ENCOUNTER 2021-06-15 11:09 | Outpatient (CLI) | payer MEDICARE, MEDICAID ==
[~2021-06-15] VITALS: Ht 165.1 cm; Wt 80.0 kg
[2021-06-15 11:25] VITALS: BP 126/71
[2021-06-15] MEDS ORDERED: ABATACEPT 750 MG OVER 30 MINUTES IV ONE ×4 (11:30)
[2021-06-15 13:05] VITALS: BP 126/71
== END 2021-06-15 13:15 | disposition home or self-care (01) ==
LOC: M INFU 11:09
PROVIDERS: ATTEND Internal Medicine
DX: M06.9 Rheumatoid arthritis, unspecified (principal)
CPT/HCPCS: 96365; J0129

== ENCOUNTER 2021-07-13 11:09 | Outpatient (CLI) | payer MEDICARE, MEDICAID ==
[~2021-07-13] VITALS: Ht 165.1 cm; Wt 80.0 kg
[~2021-07-13 11:09] MED LIST changes: -ALBUTEROL SULFATE 2.5 MG/0.5 ML INH NEB SOLN INH PRN; -EPINEPHrine INJ 1 MG/ML 1ML AMP IM PRN; -diphenhydrAMINE 50MG/ML VIAL (J1200) IV PRN; -methylPREDNISolone 125MG 2ML VIAL IV PRN
[2021-07-13 11:25] VITALS: BP 151/85
[2021-07-13] MEDS ORDERED: EPINEPHrine INJ 1 MG/ML 1ML AMP IM PRN (11:30)
[2021-07-13] MEDS ORDERED: diphenhydrAMINE 50MG/ML VIAL (J1200) IV PRN (11:30)
[2021-07-13] MEDS ORDERED: methylPREDNISolone 125MG 2ML VIAL IV PRN (11:30)
[2021-07-13] MEDS ORDERED: ALBUTEROL SULFATE 2.5 MG/0.5 ML INH NEB SOLN INH PRN (11:30)
[2021-07-13] MEDS ORDERED: ABATACEPT 750 MG OVER 30 MINUTES IV ONE ×2 (11:30)
[2021-07-13 12:28] VITALS: BP 121/66
== END 2021-07-13 12:30 | disposition home or self-care (01) ==
LOC: M INFU 11:09
PROVIDERS: ATTEND Internal Medicine Rheumatology
DX: M06.9 Rheumatoid arthritis, unspecified (principal)
CPT/HCPCS: 96365; J0129

== ENCOUNTER → 2021-08-02 | Outpatient (REF) | payer MEDICARE, MEDICAID ==
[~2021-08-02] MED LIST changes: -MOME50SP; +NASO50SP3
[2021-08-02 12:40] LABS: BASO % 0.5 % (0.0-1.0); EOS # 0.2 10^3/uL (0.0-0.5); EOS % 2.7 % (0.0-3.0); HEMATOCRIT 41.4 % (36.0-47.0); HEMOGLOBIN 13.7 g/dl (12.0-15.5); LYMPH # 1.5 10^3/uL (1.5-5.0); LYMPH % 22.8 % (24.0-44.0); MEAN CORPUSCULAR HEMOGLOBIN 27.5 pg (27.0-33.0); MEAN CORPUSCULAR HGB CONC 33.1 g/dl (32.0-36.5); MEAN CORPUSCULAR VOLUME 83.1 fl (80.0-96.0); MONO # 0.5 10^3/uL (0.0-0.8); MONO % 7.6 % (2.0-8.0); NEUTROPHILS # 4.4 10^3/uL (1.5-8.5); NEUTROPHILS % 66.1 % (36.0-66.0); PLATELET COUNT, AUTOMATED 351 10^3/uL (150-450); RED BLOOD COUNT 4.98 10^6/uL (4.00-5.40); WHITE BLOOD COUNT 6.6 10^3/uL (4.0-10.0)
[2021-08-02 13:07] LABS: ERYTHROCYTE SEDIMENTATION RATE 27 mm/hr (0-30)
[2021-08-02 14:16] LABS: ALBUMIN 3.9 GM/DL (3.2-5.2); ALT/SGPT 41 U/L (12-78); BILIRUBIN,TOTAL 0.6 MG/DL (0.2-1.0); BLOOD UREA NITROGEN 15 MG/DL (7-18); C REACTIVE PROTEIN QUANTITATIV 1.27 MG/DL (0.00-0.30); CALCIUM LEVEL 8.9 MG/DL (8.8-10.2); CARBON DIOXIDE LEVEL 28 MEQ/L (21-32); CHLORIDE LEVEL 102 MEQ/L (98-107); CREATININE FOR GFR 0.89 MG/DL (0.55-1.30); FERRITIN 41 NG/ML (8-252); FREE T4 1.34 NG/DL (0.76-1.46); GLOMERULAR FILTRATION RATE > 60.0 (>39); GLUCOSE, FASTING 114 MG/DL (70-100); MAGNESIUM LEVEL 2.2 MG/DL (1.8-2.4); NT-PRO BNP 28 PG/ML (<450); POTASSIUM SERUM 4.3 MEQ/L (3.5-5.1); SODIUM LEVEL 137 MEQ/L (136-145); THYROID STIMULATING HORMONE 0.648 uIU/ML (0.358-3.740); TOTAL PROTEIN 7.3 GM/DL (6.4-8.2)
== END ==
LOC: M SFHCPLAZ 09:14
PROVIDERS: ATTEND Family Medicine
DX: D50.9 Iron deficiency anemia, unspecified (principal); I50.32 Chronic diastolic (congestive) heart failure; E03.9 Hypothyroidism, unspecified; M06.9 Rheumatoid arthritis, unspecified

== ENCOUNTER 2021-08-10 11:10 | Outpatient (CLI) | payer MEDICARE, MEDICAID ==
[~2021-08-10] VITALS: Ht 165.1 cm; Wt 60.2 kg
[~2021-08-10 11:10] MED LIST changes: +ALBUTEROL SULFATE 2.5 MG/0.5 ML INH NEB SOLN INH PRN; +EPINEPHrine INJ 1 MG/ML 1ML AMP IM PRN; +diphenhydrAMINE 50MG/ML VIAL (J1200) IV PRN; +methylPREDNISolone 125MG 2ML VIAL IV PRN
[2021-08-10] MEDS ORDERED: ABATACEPT 750 MG OVER 30 MINUTES IV ONE ×2 (11:30)
[2021-08-10] MEDS ORDERED: NS 1,000 ML IV SCH (11:30)
[2021-08-10 11:31] VITALS: BP 161/80
[2021-08-10 12:35] VITALS: BP 149/78
== END 2021-08-10 12:45 | disposition home or self-care (01) ==
LOC: M INFU 11:10
PROVIDERS: ATTEND Internal Medicine Rheumatology
DX: M06.9 Rheumatoid arthritis, unspecified (principal)
CPT/HCPCS: 96365; J0129

== ENCOUNTER → 2021-09-03 | Outpatient (REF) | payer MEDICARE, MEDICAID ==
[~2021-09-03] MED LIST changes: -ALBUTEROL SULFATE 2.5 MG/0.5 ML INH NEB SOLN INH PRN; -EPINEPHrine INJ 1 MG/ML 1ML AMP IM PRN; -diphenhydrAMINE 50MG/ML VIAL (J1200) IV PRN; -methylPREDNISolone 125MG 2ML VIAL IV PRN
[2021-09-03 17:34] LABS: BASO % 0.4 % (0.0-1.0); EOS # 0.2 10^3/uL (0.0-0.5); EOS % 2.8 % (0.0-3.0); HEMOGLOBIN 13.4 g/dl (12.0-15.5); LYMPH # 2.5 10^3/uL (1.5-5.0); LYMPH % 33.7 % (24.0-44.0); MEAN CORPUSCULAR HEMOGLOBIN 27.2 pg (27.0-33.0); MEAN CORPUSCULAR HGB CONC 32.7 g/dl (32.0-36.5); MEAN CORPUSCULAR VOLUME 83.2 fl (80.0-96.0); MONO # 0.6 10^3/uL (0.0-0.8); MONO % 8.5 % (2.0-8.0); NEUTROPHILS # 4.1 10^3/uL (1.5-8.5); NEUTROPHILS % 54.3 % (36.0-66.0); PLATELET COUNT, AUTOMATED 347 10^3/uL (150-450); RED BLOOD COUNT 4.93 10^6/uL (4.00-5.40); WHITE BLOOD COUNT 7.5 10^3/uL (4.0-10.0)
[2021-09-03 18:04] LABS: ALBUMIN 3.7 GM/DL (3.2-5.2); BILIRUBIN,TOTAL 0.5 MG/DL (0.2-1.0); C REACTIVE PROTEIN QUANTITATIV 1.54 MG/DL (0.00-0.30); CALCIUM LEVEL 8.9 MG/DL (8.8-10.2); CREATININE FOR GFR 0.99 MG/DL (0.55-1.30); GLOMERULAR FILTRATION RATE 57.8 (>39); POTASSIUM SERUM 3.7 MEQ/L (3.5-5.1)
[2021-09-03 18:28] LABS: ERYTHROCYTE SEDIMENTATION RATE 20 mm/hr (0-30)
== END ==
LOC: M LABDRWAD 15:55
PROVIDERS: ATTEND Internal Medicine Rheumatology
DX: M06.09 Rheumatoid arthritis without rheumatoid factor, multiple sites (principal)

== ENCOUNTER 2021-09-07 11:11 | Outpatient (CLI) | payer MEDICARE, MEDICAID ==
[2021-09-07 11:15] VITALS: BP 132/72
[2021-09-07 11:30] VITALS: BP 132/72
[2021-09-07] MEDS ORDERED: ABATACEPT 750 MG OVER 30 MINUTES IV ONE ×2 (11:30)
[2021-09-07] MEDS ORDERED: diphenhydrAMINE 50MG/ML VIAL (J1200) IV PRN (11:30)
[2021-09-07] MEDS ORDERED: EPINEPHrine INJ 1 MG/ML 1ML AMP IM PRN (11:30)
[2021-09-07] MEDS ORDERED: methylPREDNISolone 125MG 2ML VIAL IV PRN (11:30)
[2021-09-07] MEDS ORDERED: ALBUTEROL SULFATE 2.5 MG/0.5 ML INH NEB SOLN INH PRN (11:30)
[2021-09-07 12:25] VITALS: BP 116/68
== END 2021-09-07 12:35 | disposition home or self-care (01) ==
LOC: M INFU 11:11
PROVIDERS: ATTEND Internal Medicine Rheumatology
DX: M06.9 Rheumatoid arthritis, unspecified (principal)
CPT/HCPCS: 96365; J0129

== ENCOUNTER → 2021-10-02 | Outpatient (CLI) | payer MEDICARE, MEDICAID | LOC: M WHC 09:50 | PROVIDERS: ATTEND Family Medicine | DX: Z12.39 Encounter for other screening for malignant neoplasm of breast (principal); Z92.89 Personal history of other medical treatment; R06.02 Shortness of breath; R05.1 Acute cough; I50.32 Chronic diastolic (congestive) heart failure ==

== ENCOUNTER → 2021-10-02 | Outpatient (CLI) | payer MEDICARE, MEDICAID ==
[2021-10-02 12:35] LABS: BASO # 0.1 10^3/uL (0.0-0.2); BASO % 0.9 % (0.0-1.0); EOS # 0.2 10^3/uL (0.0-0.5); EOS % 2.6 % (0.0-3.0); HEMOGLOBIN 12.6 g/dl (12.0-15.5); LYMPH # 1.4 10^3/uL (1.5-5.0); LYMPH % 19.3 % (24.0-44.0); MEAN CORPUSCULAR HGB CONC 33.2 g/dl (32.0-36.5); MEAN CORPUSCULAR VOLUME 81.4 fl (80.0-96.0); MONO # 0.8 10^3/uL (0.0-0.8); MONO % 11.4 % (2.0-8.0); NEUTROPHILS # 4.6 10^3/uL (1.5-8.5); NEUTROPHILS % 65.4 % (36.0-66.0); PLATELET COUNT, AUTOMATED 417 10^3/uL (150-450); RED BLOOD COUNT 4.67 10^6/uL (4.00-5.40)
[2021-10-02 12:49] LABS: BLOOD UREA NITROGEN 15 MG/DL (7-18); CALCIUM LEVEL 8.9 MG/DL (8.8-10.2); CARBON DIOXIDE LEVEL 26 MEQ/L (21-32); CHLORIDE LEVEL 105 MEQ/L (98-107); CREATININE FOR GFR 0.92 MG/DL (0.55-1.30); GLOMERULAR FILTRATION RATE > 60.0 (>39); GLUCOSE, FASTING 103 MG/DL (70-100); NT-PRO BNP 71 PG/ML (<450); POTASSIUM SERUM 4.3 MEQ/L (3.5-5.1); SODIUM LEVEL 135 MEQ/L (136-145)
== END ==
LOC: M RAD 11:09
PROVIDERS: ATTEND Internal Medicine Cardiovascular Disease
DX: R06.02 Shortness of breath (principal); R05.1 Acute cough; I50.32 Chronic diastolic (congestive) heart failure

== ENCOUNTER 2021-10-05 10:46 | Outpatient (CLI) | payer MEDICARE, MEDICAID ==
[~2021-10-05] VITALS: Ht 165.1 cm; Wt 80.0 kg
[~2021-10-05 10:46] MED LIST changes: +ALBUTEROL SULFATE 2.5 MG/0.5 ML INH NEB SOLN INH PRN; +EPINEPHrine INJ 1 MG/ML 1ML AMP IM PRN; +diphenhydrAMINE 50MG/ML VIAL (J1200) IV PRN; +methylPREDNISolone 125MG 2ML VIAL IV PRN
[2021-10-05] MEDS ORDERED: NS 1,000 ML IV SCH (11:00)
[2021-10-05] MEDS ORDERED: ABATACEPT 750 MG OVER 30 MINUTES IV ONE ×2 (11:00)
[2021-10-05 11:10] VITALS: BP 121/60
[2021-10-05 11:24] VITALS: BP 121/60
[2021-10-05 12:19] VITALS: BP 112/63
== END 2021-10-05 12:20 | disposition home or self-care (01) ==
LOC: M INFU 10:46
PROVIDERS: ATTEND Internal Medicine Rheumatology
DX: M06.9 Rheumatoid arthritis, unspecified (principal)
CPT/HCPCS: 96365; J0129

== ENCOUNTER 2021-11-02 10:48 | Outpatient (CLI) | payer MEDICARE, MEDICAID ==
[~2021-11-02] VITALS: Ht 165.1 cm; Wt 80.0 kg
[2021-11-02 10:55] VITALS: BP 133/68
[2021-11-02] MEDS ORDERED: ABATACEPT 750 MG OVER 30 MINUTES IV ONE ×2 (11:00)
[2021-11-02 12:05] VITALS: BP 126/66
== END 2021-11-02 12:05 | disposition home or self-care (01) ==
LOC: M INFU 10:48
PROVIDERS: ATTEND Internal Medicine Rheumatology
DX: M06.9 Rheumatoid arthritis, unspecified (principal)
CPT/HCPCS: 96365; J0129

== ENCOUNTER 2021-11-30 11:11 | Outpatient (CLI) | payer MEDICARE, MEDICAID ==
[~2021-11-30] VITALS: Ht 165.1 cm; Wt 80.0 kg
[~2021-11-30 11:11] MED LIST changes: +ABATACEPT 750 MG OVER 30 MINUTES IV ONE; +NS 1,000 ML IV SCH
[2021-11-30 11:34] VITALS: BP 111/67
[2021-11-30 12:32] VITALS: BP 124/68
== END 2021-11-30 12:30 | disposition home or self-care (01) ==
LOC: M INFU 11:11
PROVIDERS: ATTEND Internal Medicine Rheumatology
DX: M06.9 Rheumatoid arthritis, unspecified (principal)
CPT/HCPCS: 96365; J0129

== ENCOUNTER 2021-12-31 12:50 | Outpatient (CLI) | payer MEDICARE, MEDICAID ==
[~2021-12-31] VITALS: Ht 157.5 cm; Wt 77.3 kg
[2021-12-31 12:50] VITALS: BP 118/59
[~2021-12-31 12:50] MED LIST changes: -ABATACEPT 750 MG OVER 30 MINUTES IV ONE; -NS 1,000 ML IV SCH
[2021-12-31] MEDS ORDERED: ABATACEPT 750 MG OVER 30 MINUTES IV ONE ×2 (13:00)
[2021-12-31 13:19] VITALS: BP 118/59
[2021-12-31 14:02] VITALS: BP 121/71
== END 2021-12-31 14:05 | disposition home or self-care (01) ==
LOC: M INFU 12:50
PROVIDERS: ATTEND Internal Medicine Rheumatology
DX: M06.9 Rheumatoid arthritis, unspecified (principal)
CPT/HCPCS: 96365; J0129

== ENCOUNTER → 2022-01-15 | Outpatient (REF) | payer MEDICARE, MEDICAID ==
[~2022-01-15] MED LIST changes: -ALBUTEROL SULFATE 2.5 MG/0.5 ML INH NEB SOLN INH PRN; -EPINEPHrine INJ 1 MG/ML 1ML AMP IM PRN; -diphenhydrAMINE 50MG/ML VIAL (J1200) IV PRN; -methylPREDNISolone 125MG 2ML VIAL IV PRN
[2022-01-15 12:42] LABS: BASO # 0.1 10^3/uL (0.0-0.2); BASO % 0.8 % (0.0-1.0); EOS # 0.2 10^3/uL (0.0-0.5); EOS % 3.4 % (0.0-3.0); HEMATOCRIT 42.8 % (36.0-47.0); HEMOGLOBIN 13.9 g/dl (12.0-15.5); LYMPH # 1.6 10^3/uL (1.5-5.0); LYMPH % 24.3 % (24.0-44.0); MEAN CORPUSCULAR HEMOGLOBIN 26.8 pg (27.0-33.0); MEAN CORPUSCULAR HGB CONC 32.5 g/dl (32.0-36.5); MEAN CORPUSCULAR VOLUME 82.5 fl (80.0-96.0); MONO # 0.8 10^3/uL (0.0-0.8); MONO % 11.5 % (2.0-8.0); NEUTROPHILS # 3.9 10^3/uL (1.5-8.5); NEUTROPHILS % 59.7 % (36.0-66.0); PLATELET COUNT, AUTOMATED 316 10^3/uL (150-450); RED BLOOD COUNT 5.19 10^6/uL (4.00-5.40); WHITE BLOOD COUNT 6.6 10^3/uL (4.0-10.0)
[2022-01-15 13:17] LABS: ERYTHROCYTE SEDIMENTATION RATE 16 mm/hr (0-30)
[2022-01-15 14:29] LABS: ALT/SGPT 28 U/L (12-78); BILIRUBIN,TOTAL 0.9 MG/DL (0.2-1.0); BLOOD UREA NITROGEN 16 MG/DL (7-18); C REACTIVE PROTEIN QUANTITATIV 1.11 MG/DL (0.00-0.30); CALCIUM LEVEL 8.9 MG/DL (8.8-10.2); CARBON DIOXIDE LEVEL 27 MEQ/L (21-32); CHLORIDE LEVEL 102 MEQ/L (98-107); CREATININE FOR GFR 0.92 MG/DL (0.55-1.30); GLOMERULAR FILTRATION RATE > 60.0 (>39); GLUCOSE, FASTING 99 MG/DL (70-100); POTASSIUM SERUM 4.3 MEQ/L (3.5-5.1); SODIUM LEVEL 135 MEQ/L (136-145); TOTAL PROTEIN 7.1 GM/DL (6.4-8.2)
[2022-01-15 14:52] LABS: PTH INTACT 113.8 PG/ML (18.5-88.0)
[2022-01-15 16:02] LABS: CHOLESTEROL RISK RATIO 3.386 (<5); FREE T4 1.4 NG/DL (0.76-1.46); THYROID STIMULATING HORMONE 0.117 uIU/ML (0.358-3.740)
[2022-01-15 23:49] LABS: HEMOGLOBIN A1c 5.8 %
== END ==
LOC: M SFHCADAM 10:16
PROVIDERS: ATTEND Internal Medicine Rheumatology
DX: E78.2 Mixed hyperlipidemia (principal); D50.9 Iron deficiency anemia, unspecified; E55.9 Vitamin D deficiency, unspecified; M06.09 Rheumatoid arthritis without rheumatoid factor, multiple sites; M81.0 Age-related osteoporosis without current pathological fracture; M15.0 Primary generalized (osteo)arthritis; Z79.899 Other long term (current) drug therapy

== ENCOUNTER → 2022-01-28 | Outpatient (CLI) | payer MEDICARE, MEDICAID ==
[~2022-01-28] VITALS: Ht 165.1 cm; Wt 79.7 kg
[~2022-01-28] MED LIST changes: +ABATACEPT 750 MG OVER 30 MINUTES IV ONE; +ALBUTEROL SULFATE 2.5 MG/0.5 ML INH NEB SOLN INH PRN; +EPINEPHrine INJ 1 MG/ML 1ML AMP IM PRN; +diphenhydrAMINE 50MG/ML VIAL (J1200) IV PRN; +methylPREDNISolone 125MG 2ML VIAL IV PRN
[2022-01-28 13:00] VITALS: BP 122/62
[2022-01-28 14:30] VITALS: BP 119/70
== END ==
LOC: M INFU 07:00
PROVIDERS: ATTEND Internal Medicine Rheumatology
DX: M06.9 Rheumatoid arthritis, unspecified (principal)
CPT/HCPCS: 96365; J0129

== ENCOUNTER 2022-02-11 12:50 | Outpatient (CLI) | payer MEDICARE, MEDICAID ==
[~2022-02-11] VITALS: Ht 165.1 cm; Wt 79.7 kg
[2022-02-11 12:50] VITALS: BP 123/71
[~2022-02-11 12:50] MED LIST changes: -ABATACEPT 750 MG OVER 30 MINUTES IV ONE; -ALBUTEROL SULFATE 2.5 MG/0.5 ML INH NEB SOLN INH PRN; -EPINEPHrine INJ 1 MG/ML 1ML AMP IM PRN; -diphenhydrAMINE 50MG/ML VIAL (J1200) IV PRN; -methylPREDNISolone 125MG 2ML VIAL IV PRN
[2022-02-11] MEDS ORDERED: ZOLEDRONIC ACID 5 MG in IV 1 EA IV ONE (13:00)
[2022-02-11 13:35] VITALS: BP 121/74
== END 2022-02-11 13:30 | disposition home or self-care (01) ==
LOC: M INFU 12:50
PROVIDERS: ATTEND Family Medicine
DX: M06.9 Rheumatoid arthritis, unspecified (principal)
CPT/HCPCS: 96365; J3489

== ENCOUNTER 2022-02-25 12:45 | Outpatient (CLI) | payer MEDICARE, MEDICAID ==
[~2022-02-25] VITALS: Ht 157.5 cm; Wt 77.3 kg
[2022-02-25 12:45] VITALS: BP 138/76
[2022-02-25] MEDS ORDERED: methylPREDNISolone 125MG 2ML VIAL IV PRN (13:00)
[2022-02-25] MEDS ORDERED: diphenhydrAMINE 50MG/ML VIAL (J1200) IV PRN (13:00)
[2022-02-25] MEDS ORDERED: EPINEPHrine INJ 1 MG/ML 1ML AMP IM PRN (13:00)
[2022-02-25] MEDS ORDERED: ABATACEPT 750 MG OVER 30 MINUTES IV ONE ×2 (13:00)
[2022-02-25] MEDS ORDERED: ALBUTEROL SULFATE 2.5 MG/0.5 ML INH NEB SOLN INH PRN (13:00)
[2022-02-25 14:08] VITALS: BP 126/62
== END 2022-02-25 14:00 | disposition home or self-care (01) ==
LOC: M INFU 12:45
PROVIDERS: ATTEND Internal Medicine Rheumatology
DX: M06.9 Rheumatoid arthritis, unspecified (principal)
CPT/HCPCS: 96365; J0129

== ENCOUNTER 2022-03-25 13:05 | Outpatient (CLI) | payer MEDICARE, MEDICAID ==
[~2022-03-25] VITALS: Ht 165.1 cm; Wt 79.7 kg
[~2022-03-25 13:05] MED LIST changes: +ABATACEPT 750 MG OVER 30 MINUTES IV ONE; +ALBUTEROL SULFATE 2.5 MG/0.5 ML INH NEB SOLN INH PRN; +EPINEPHrine INJ 1 MG/ML 1ML AMP IM PRN; +NS 1,000 ML IV SCH; +diphenhydrAMINE 50MG/ML VIAL (J1200) IV PRN; +methylPREDNISolone 125MG 2ML VIAL IV PRN
[2022-03-25 13:15] VITALS: BP 123/66
[2022-03-25 13:45] VITALS: BP 118/71
== END 2022-03-25 13:50 | disposition home or self-care (01) ==
LOC: M INFU 13:05
PROVIDERS: ATTEND Internal Medicine Rheumatology
DX: M06.9 Rheumatoid arthritis, unspecified (principal)
CPT/HCPCS: 96365; J0129

== ENCOUNTER → 2022-04-10 | Outpatient (CLI) | payer MEDICARE, MEDICAID ==
[~2022-04-10] MED LIST changes: -ABATACEPT 750 MG OVER 30 MINUTES IV ONE; -ALBUTEROL SULFATE 2.5 MG/0.5 ML INH NEB SOLN INH PRN; -EPINEPHrine INJ 1 MG/ML 1ML AMP IM PRN; -NS 1,000 ML IV SCH; -diphenhydrAMINE 50MG/ML VIAL (J1200) IV PRN; -methylPREDNISolone 125MG 2ML VIAL IV PRN
[2022-04-10 18:35] LABS: BASO % 0.5 % (0.0-1.0); EOS # 0.2 10^3/uL (0.0-0.5); EOS % 2.2 % (0.0-3.0); HEMATOCRIT 42.1 % (36.0-47.0); HEMOGLOBIN 13.3 g/dl (12.0-15.5); LYMPH # 2.5 10^3/uL (1.5-5.0); LYMPH % 32.5 % (24.0-44.0); MEAN CORPUSCULAR HEMOGLOBIN 26.6 pg (27.0-33.0); MEAN CORPUSCULAR HGB CONC 31.6 g/dl (32.0-36.5); MEAN CORPUSCULAR VOLUME 84.2 fl (80.0-96.0); MONO # 0.7 10^3/uL (0.0-0.8); MONO % 8.9 % (2.0-8.0); NEUTROPHILS # 4.3 10^3/uL (1.5-8.5); NEUTROPHILS % 55.6 % (36.0-66.0); PLATELET COUNT, AUTOMATED 333 10^3/uL (150-450); WHITE BLOOD COUNT 7.7 10^3/uL (4.0-10.0)
[2022-04-10 19:30] LABS: ERYTHROCYTE SEDIMENTATION RATE 8 mm/hr (0-30)
[2022-04-10 19:32] LABS: ALBUMIN 4.1 GM/DL (3.2-5.2); C REACTIVE PROTEIN QUANTITATIV 0.65 MG/DL (0.00-0.30); CALCIUM LEVEL 9.2 MG/DL (8.8-10.2); CREATININE FOR GFR 0.97 MG/DL (0.55-1.30); FREE T4 1.25 NG/DL (0.76-1.46); PHOSPHORUS LEVEL 3.6 MG/DL (2.5-4.9); POTASSIUM SERUM 4.4 MEQ/L (3.5-5.1); THYROID STIMULATING HORMONE 0.303 uIU/ML (0.358-3.740)
== END ==
LOC: M ADAMS 13:21
PROVIDERS: ATTEND Family Medicine
DX: E03.9 Hypothyroidism, unspecified (principal); E55.9 Vitamin D deficiency, unspecified; M06.9 Rheumatoid arthritis, unspecified; K21.9 Gastro-esophageal reflux disease without esophagitis

== ENCOUNTER 2022-04-22 12:40 | Outpatient (CLI) | payer MEDICARE, MEDICAID ==
[~2022-04-22] VITALS: Ht 157.5 cm; Wt 77.2 kg
[2022-04-22 12:40] VITALS: BP 132/63
[~2022-04-22 12:40] MED LIST changes: +ALBUTEROL SULFATE 2.5 MG/0.5 ML INH NEB SOLN INH PRN; +EPINEPHrine INJ 1 MG/ML 1ML AMP IM PRN; +diphenhydrAMINE 50MG/ML VIAL (J1200) IV PRN; +methylPREDNISolone 125MG 2ML VIAL IV PRN
[2022-04-22] MEDS ORDERED: ABATACEPT 750 MG OVER 30 MINUTES IV ONE ×2 (13:00)
[2022-04-22] MEDS ORDERED: NS 1,000 ML IV SCH (13:00)
[2022-04-22 13:55] VITALS: BP 121/60
== END 2022-04-22 13:55 | disposition home or self-care (01) ==
LOC: M INFU 12:40
PROVIDERS: ATTEND Internal Medicine Rheumatology
DX: M06.9 Rheumatoid arthritis, unspecified (principal)
CPT/HCPCS: 96365; J0129

== ENCOUNTER → 2022-05-17 | Outpatient (CLI) | payer MEDICARE, MEDICAID ==
[~2022-05-17] MED LIST changes: -ALBUTEROL SULFATE 2.5 MG/0.5 ML INH NEB SOLN INH PRN; -EPINEPHrine INJ 1 MG/ML 1ML AMP IM PRN; -diphenhydrAMINE 50MG/ML VIAL (J1200) IV PRN; -methylPREDNISolone 125MG 2ML VIAL IV PRN
[2022-05-17 15:41] LABS: BASO % 0.4 % (0.0-1.0); EOS # 0.4 10^3/uL (0.0-0.5); EOS % 5.7 % (0.0-3.0); HEMATOCRIT 42.5 % (36.0-47.0); HEMOGLOBIN 13.7 g/dl (12.0-15.5); LYMPH # 2.3 10^3/uL (1.5-5.0); LYMPH % 34.4 % (24.0-44.0); MEAN CORPUSCULAR HEMOGLOBIN 26.9 pg (27.0-33.0); MEAN CORPUSCULAR HGB CONC 32.2 g/dl (32.0-36.5); MEAN CORPUSCULAR VOLUME 83.5 fl (80.0-96.0); MONO # 0.6 10^3/uL (0.0-0.8); MONO % 8.4 % (2.0-8.0); NEUTROPHILS # 3.4 10^3/uL (1.5-8.5); PLATELET COUNT, AUTOMATED 327 10^3/uL (150-450); RED BLOOD COUNT 5.09 10^6/uL (4.00-5.40); WHITE BLOOD COUNT 6.7 10^3/uL (4.0-10.0)
[2022-05-17 16:21] LABS: ALBUMIN 4.1 GM/DL (3.2-5.2); ALKALINE PHOSPHATASE 70 U/L (45-117); ALT/SGPT 40 U/L (12-78); AST/SGOT 38 U/L (7-37); BILIRUBIN,TOTAL 0.5 MG/DL (0.2-1.0); BLOOD UREA NITROGEN 16 MG/DL (7-18); C REACTIVE PROTEIN QUANTITATIV 1.23 MG/DL (0.00-0.30); CALCIUM LEVEL 9.1 MG/DL (8.8-10.2); CARBON DIOXIDE LEVEL 30 MEQ/L (21-32); CHLORIDE LEVEL 97 MEQ/L (98-107); CREATININE FOR GFR 0.87 MG/DL (0.55-1.30); GLOMERULAR FILTRATION RATE > 60.0 (>39); GLUCOSE, FASTING 87 MG/DL (70-100); POTASSIUM SERUM 4.2 MEQ/L (3.5-5.1); SODIUM LEVEL 135 MEQ/L (136-145); TOTAL PROTEIN 7.5 GM/DL (6.4-8.2)
== END ==
LOC: M PLALAB 14:20
PROVIDERS: ATTEND Nurse Practitioner Family
DX: R06.02 Shortness of breath (principal)

== ENCOUNTER 2022-06-20 09:15 | Outpatient (CLI) | payer MEDICARE, MEDICAID ==
[~2022-06-20] VITALS: Ht 165.1 cm; Wt 77.5 kg
[~2022-06-20 09:15] MED LIST changes: +ALBUTEROL SULFATE 2.5 MG/0.5 ML INH NEB SOLN INH PRN; +EPINEPHrine INJ 1 MG/ML 1ML AMP IM PRN; +diphenhydrAMINE 50MG/ML VIAL IV PRN; +methylPREDNISolone 125MG 2ML VIAL IV PRN
[2022-06-20 09:28] VITALS: BP 150/72
[2022-06-20] MEDS ORDERED: ABATACEPT 750 MG OVER 30 MINUTES IV ONE ×2 (09:30)
[2022-06-20 10:31] VITALS: BP 141/73
== END 2022-06-20 10:35 | disposition home or self-care (01) ==
LOC: M INFU 09:15
PROVIDERS: ATTEND Internal Medicine Rheumatology
DX: M06.9 Rheumatoid arthritis, unspecified (principal)
CPT/HCPCS: 96365; J0129

== ENCOUNTER → 2022-06-25 | Outpatient (REF) | payer MEDICARE, MEDICAID ==
[~2022-06-25] MED LIST changes: -ALBUTEROL SULFATE 2.5 MG/0.5 ML INH NEB SOLN INH PRN; -EPINEPHrine INJ 1 MG/ML 1ML AMP IM PRN; -diphenhydrAMINE 50MG/ML VIAL IV PRN; -methylPREDNISolone 125MG 2ML VIAL IV PRN
== END ==
LOC: M SFHCPLAZ 12:50
PROVIDERS: ATTEND Family Medicine
DX: J18.9 Pneumonia, unspecified organism (principal)

== ENCOUNTER → 2022-07-03 | Outpatient (REF) | payer MEDICARE, MEDICAID ==
[2022-07-03 13:24] LABS: BASO # 0.1 10^3/uL (0.0-0.2); BASO % 0.6 % (0.0-1.0); EOS # 0.2 10^3/uL (0.0-0.5); EOS % 1.9 % (0.0-3.0); HEMATOCRIT 39.8 % (36.0-47.0); HEMOGLOBIN 12.9 g/dl (12.0-15.5); LYMPH # 2.4 10^3/uL (1.5-5.0); LYMPH % 25.2 % (24.0-44.0); MEAN CORPUSCULAR HEMOGLOBIN 27.7 pg (27.0-33.0); MEAN CORPUSCULAR HGB CONC 32.4 g/dl (32.0-36.5); MEAN CORPUSCULAR VOLUME 85.4 fl (80.0-96.0); MONO # 1.1 10^3/uL (0.0-0.8); MONO % 11.9 % (2.0-8.0); NEUTROPHILS # 5.6 10^3/uL (1.5-8.5); NEUTROPHILS % 59.9 % (36.0-66.0); PLATELET COUNT, AUTOMATED 359 10^3/uL (150-450); RED BLOOD COUNT 4.66 10^6/uL (4.00-5.40); WHITE BLOOD COUNT 9.3 10^3/uL (4.0-10.0)
[2022-07-03 13:36] LABS: ERYTHROCYTE SEDIMENTATION RATE 18 mm/hr (0-30)
[2022-07-03 13:51] LABS: ALBUMIN 3.7 G/DL (3.2-5.2); ALKALINE PHOSPHATASE 71 U/L (46-116); ALT/SGPT 18 U/L (7.0-40); AST/SGOT 21 U/L (<34); BILIRUBIN,TOTAL 0.7 MG/DL (0.3-1.2); BLOOD UREA NITROGEN 21 MG/DL (9-23); CALCIUM LEVEL 8.9 MG/DL (8.3-10.6); CARBON DIOXIDE LEVEL 31 MMOL/L (20-31); CHLORIDE LEVEL 99 MMOL/L (98-107); GLOMERULAR FILTRATION RATE > 60.0 (>39); GLUCOSE, FASTING 75 MG/DL (74-106); POTASSIUM SERUM 4.7 MMOL/L (3.5-5.1); SODIUM LEVEL 138 MMOL/L (136-145); TOTAL PROTEIN 6.6 G/DL (5.7-8.2)
== END ==
LOC: M LABDRWAD 12:29
PROVIDERS: ATTEND Internal Medicine Rheumatology
DX: M06.09 Rheumatoid arthritis without rheumatoid factor, multiple sites (principal); M81.0 Age-related osteoporosis without current pathological fracture; M15.0 Primary generalized (osteo)arthritis; Z79.899 Other long term (current) drug therapy

== ENCOUNTER 2022-07-18 09:45 | Outpatient (CLI) | payer MEDICARE, MEDICAID ==
[~2022-07-18] VITALS: Ht 165.1 cm; Wt 77.5 kg
[2022-07-18 09:35] VITALS: BP 125/72
[2022-07-18 09:45] VITALS: BP 125/72
[~2022-07-18 09:45] MED LIST changes: +ALBUTEROL SULFATE 2.5MG/0.5ML INH NEB SOLN INH PRN; +EPINEPHrine INJ 1 MG/ML 1ML AMP IM PRN; +diphenhydrAMINE 50MG/ML VIAL IV PRN; +methylPREDNISolone 125MG 2ML VIAL IV PRN
[2022-07-18] MEDS ORDERED: NS 1,000 ML IV SCH (10:00)
[2022-07-18] MEDS ORDERED: ABATACEPT 750 MG OVER 30 MINUTES IV ONE ×2 (10:00)
[2022-07-18 10:42] VITALS: BP 120/65
== END 2022-07-18 10:45 | disposition home or self-care (01) ==
LOC: M INFU 09:45
PROVIDERS: ATTEND Internal Medicine Rheumatology
DX: M06.9 Rheumatoid arthritis, unspecified (principal)
CPT/HCPCS: 96365; J0129

== ENCOUNTER 2022-08-15 09:05 | Outpatient (CLI) | payer MEDICARE, MEDICAID ==
[~2022-08-15] VITALS: Ht 165.1 cm; Wt 77.5 kg
[2022-08-15 09:10] VITALS: BP 121/65
[2022-08-15] MEDS ORDERED: ABATACEPT 750 MG OVER 30 MINUTES IV ONE ×2 (09:30)
[2022-08-15 10:30] VITALS: BP 127/74
== END 2022-08-15 10:40 | disposition home or self-care (01) ==
LOC: M INFU 09:05
PROVIDERS: ATTEND Internal Medicine Rheumatology
DX: M06.9 Rheumatoid arthritis, unspecified (principal)
CPT/HCPCS: 96365; J0129

== ENCOUNTER → 2022-08-29 | Outpatient (CLI) | payer MEDICARE, MEDICAID ==
[~2022-08-29] MED LIST changes: -ALBUTEROL SULFATE 2.5MG/0.5ML INH NEB SOLN INH PRN; -EPINEPHrine INJ 1 MG/ML 1ML AMP IM PRN; -diphenhydrAMINE 50MG/ML VIAL IV PRN; -methylPREDNISolone 125MG 2ML VIAL IV PRN
== END ==
LOC: M WHC 09:54
PROVIDERS: ATTEND Family Medicine
DX: Z12.31 Encounter for screening mammogram for malignant neoplasm of breast (principal); Z53.8 Procedure and treatment not carried out for other reasons

== ENCOUNTER 2022-09-12 10:20 | Outpatient (CLI) | payer MEDICARE, MEDICAID ==
[~2022-09-12] VITALS: Ht 165.1 cm; Wt 77.5 kg
[~2022-09-12 10:20] MED LIST changes: +ALBUTEROL SULFATE 2.5MG/0.5ML INH NEB SOLN INH PRN; +EPINEPHrine INJ 1 MG/ML 1ML AMP IM PRN; +diphenhydrAMINE 50MG/ML VIAL IV PRN; +methylPREDNISolone 125MG 2ML VIAL IV PRN
[2022-09-12] MEDS ORDERED: ABATACEPT 750 MG OVER 30 MINUTES IV ONE ×2 (10:30)
[2022-09-12] MEDS ORDERED: NS 1,000 ML IV SCH (10:30)
[2022-09-12 10:31] VITALS: BP 122/67
[2022-09-12 11:35] VITALS: BP 121/69
== END 2022-09-12 11:40 | disposition home or self-care (01) ==
LOC: M INFU 10:20
PROVIDERS: ATTEND Internal Medicine Rheumatology
DX: M06.9 Rheumatoid arthritis, unspecified (principal)
CPT/HCPCS: 96365; J0129

== ENCOUNTER → 2022-09-24 | Outpatient (REF) | payer MEDICARE, MEDICAID ==
[~2022-09-24] MED LIST changes: -ALBUTEROL SULFATE 2.5MG/0.5ML INH NEB SOLN INH PRN; -EPINEPHrine INJ 1 MG/ML 1ML AMP IM PRN; -diphenhydrAMINE 50MG/ML VIAL IV PRN; -methylPREDNISolone 125MG 2ML VIAL IV PRN
[2022-09-24 13:00] LABS: BASO # 0.1 10^3/uL (0.0-0.2); BASO % 0.7 % (0.0-1.0); EOS # 0.2 10^3/uL (0.0-0.5); HEMATOCRIT 42.1 % (36.0-47.0); HEMOGLOBIN 13.5 g/dl (12.0-15.5); LYMPH # 1.6 10^3/uL (1.5-5.0); LYMPH % 21.1 % (24.0-44.0); MEAN CORPUSCULAR HGB CONC 32.1 g/dl (32.0-36.5); MEAN CORPUSCULAR VOLUME 87.2 fl (80.0-96.0); MONO % 13.2 % (2.0-8.0); NEUTROPHILS # 4.5 10^3/uL (1.5-8.5); NEUTROPHILS % 61.7 % (36.0-66.0); PLATELET COUNT, AUTOMATED 315 10^3/uL (150-450); RED BLOOD COUNT 4.83 10^6/uL (4.00-5.40); WHITE BLOOD COUNT 7.4 10^3/uL (4.0-10.0)
[2022-09-24 13:21] LABS: ERYTHROCYTE SEDIMENTATION RATE 34 mm/hr (0-30)
[2022-09-24 13:30] LABS: C REACTIVE PROTEIN QUANTITATIV 1.4 MG/DL (<1.0)
[2022-09-24 13:39] LABS: ALBUMIN 4.1 G/DL (3.2-5.2); BILIRUBIN,TOTAL 0.6 MG/DL (0.3-1.2); CALCIUM LEVEL 8.8 MG/DL (8.3-10.6); CREATININE FOR GFR 0.97 MG/DL (0.55-1.30); POTASSIUM SERUM 4.1 MMOL/L (3.5-5.1)
== END ==
LOC: M SFHCADAM 09:45
PROVIDERS: ATTEND Internal Medicine Rheumatology
DX: M06.09 Rheumatoid arthritis without rheumatoid factor, multiple sites (principal); M81.0 Age-related osteoporosis without current pathological fracture; M15.0 Primary generalized (osteo)arthritis; Z79.899 Other long term (current) drug therapy

== ENCOUNTER 2022-10-10 09:23 | Outpatient (CLI) | payer MEDICARE, MEDICAID ==
[~2022-10-10] VITALS: Ht 162.6 cm; Wt 77.3 kg
[~2022-10-10 09:23] MED LIST changes: +ALBUTEROL SULFATE 2.5MG/0.5ML INH NEB SOLN INH PRN; +EPINEPHrine INJ 1 MG/ML 1ML AMP IM PRN; +diphenhydrAMINE 50MG/ML VIAL IV PRN; +methylPREDNISolone 125MG 2ML VIAL IV PRN
[2022-10-10] MEDS ORDERED: ABATACEPT 750 MG OVER 30 MINUTES IV ONE ×2 (09:30)
[2022-10-10 09:40] VITALS: BP 136/66
[2022-10-10 11:05] VITALS: BP 127/62
== END 2022-10-10 11:05 | disposition home or self-care (01) ==
LOC: M INFU 09:23
PROVIDERS: ATTEND Internal Medicine Rheumatology
DX: M06.9 Rheumatoid arthritis, unspecified (principal)
CPT/HCPCS: 96365; J0129

== ENCOUNTER → 2022-10-11 | Outpatient (CLI) | payer MEDICARE, MEDICAID ==
[~2022-10-11] MED LIST changes: -ALBUTEROL SULFATE 2.5MG/0.5ML INH NEB SOLN INH PRN; -EPINEPHrine INJ 1 MG/ML 1ML AMP IM PRN; -diphenhydrAMINE 50MG/ML VIAL IV PRN; -methylPREDNISolone 125MG 2ML VIAL IV PRN
== END ==
LOC: M WHC 08:59
PROVIDERS: ATTEND Family Medicine
DX: Z12.39 Encounter for other screening for malignant neoplasm of breast (principal)

== ENCOUNTER → 2022-10-22 | Outpatient (CLI) | payer MEDICARE, MEDICAID ==
[2022-10-22 13:24] LABS: BASO # 0.1 10^3/uL (0.0-0.2); BASO % 0.8 % (0.0-1.0); EOS # 0.2 10^3/uL (0.0-0.5); EOS % 2.6 % (0.0-3.0); HEMATOCRIT 43.5 % (36.0-47.0); LYMPH # 1.8 10^3/uL (1.5-5.0); MEAN CORPUSCULAR HEMOGLOBIN 28.3 pg (27.0-33.0); MEAN CORPUSCULAR HGB CONC 32.2 g/dl (32.0-36.5); MEAN CORPUSCULAR VOLUME 87.9 fl (80.0-96.0); MONO # 0.9 10^3/uL (0.0-0.8); MONO % 12.6 % (2.0-8.0); NEUTROPHILS # 4.3 10^3/uL (1.5-8.5); NEUTROPHILS % 58.7 % (36.0-66.0); PLATELET COUNT, AUTOMATED 386 10^3/uL (150-450); RED BLOOD COUNT 4.95 10^6/uL (4.00-5.40); WHITE BLOOD COUNT 7.3 10^3/uL (4.0-10.0)
[2022-10-22 13:38] LABS: HEMOGLOBIN A1c 6.2 % (4.0-6.0)
[2022-10-22 14:02] LABS: C REACTIVE PROTEIN QUANTITATIV 0.9 MG/DL (<1.0)
[2022-10-22 14:04] LABS: CHOLESTEROL RISK RATIO 3.55 (<5); FERRITIN 31.5 NG/ML (7.3-270.7); FREE T4 1.33 NG/DL (0.89-1.76); HDL CHOLESTEROL 45.3 MG/DL (>40); LDL CHOLESTEROL 87.1 MG/DL (<100); NON-HDL-C 115.7 MG/DL; PTH INTACT 69.3 PG/ML (18.5-88.0); THYROID STIMULATING HORMONE 0.864 uIU/ML (0.55-4.78)
== END ==
LOC: M LABDRWAD 10:12
PROVIDERS: ATTEND Family Medicine
DX: E03.9 Hypothyroidism, unspecified (principal); D50.9 Iron deficiency anemia, unspecified; R73.01 Impaired fasting glucose; E55.9 Vitamin D deficiency, unspecified

== ENCOUNTER → 2022-10-30 | Outpatient (REF) | payer MEDICARE, MEDICAID ==
[2022-10-30 15:21] LABS: BASO # 0.1 10^3/uL (0.0-0.2); BASO % 0.7 % (0.0-1.0); EOS # 0.2 10^3/uL (0.0-0.5); EOS % 3.1 % (0.0-3.0); HEMATOCRIT 42.9 % (36.0-47.0); HEMOGLOBIN 13.8 g/dl (12.0-15.5); LYMPH # 1.3 10^3/uL (1.5-5.0); LYMPH % 17.7 % (24.0-44.0); MEAN CORPUSCULAR HEMOGLOBIN 28.3 pg (27.0-33.0); MEAN CORPUSCULAR HGB CONC 32.2 g/dl (32.0-36.5); MEAN CORPUSCULAR VOLUME 88.1 fl (80.0-96.0); MONO # 0.7 10^3/uL (0.0-0.8); MONO % 9.8 % (2.0-8.0); NEUTROPHILS # 5.1 10^3/uL (1.5-8.5); NEUTROPHILS % 68.4 % (36.0-66.0); PLATELET COUNT, AUTOMATED 345 10^3/uL (150-450); RED BLOOD COUNT 4.87 10^6/uL (4.00-5.40); WHITE BLOOD COUNT 7.5 10^3/uL (4.0-10.0)
[2022-10-30 15:59] LABS: ALBUMIN 3.9 G/DL (3.2-5.2); ALKALINE PHOSPHATASE 74 U/L (46-116); ALT/SGPT 34 U/L (7.0-40); AST/SGOT 27 U/L (<34); BILIRUBIN,TOTAL 0.6 MG/DL (0.3-1.2); BLOOD UREA NITROGEN 24 MG/DL (9-23); CARBON DIOXIDE LEVEL 28 MMOL/L (20-31); CHLORIDE LEVEL 102 MMOL/L (98-107); CREATININE FOR GFR 0.94 MG/DL (0.55-1.30); GLOMERULAR FILTRATION RATE > 60.0 (>39); GLUCOSE, FASTING 102 MG/DL (74-106); SODIUM LEVEL 137 MMOL/L (136-145); TOTAL PROTEIN 6.9 G/DL (5.7-8.2)
== END ==
LOC: M SFHCADAM 09:09
PROVIDERS: ATTEND Internal Medicine Rheumatology
DX: M06.09 Rheumatoid arthritis without rheumatoid factor, multiple sites (principal); M81.0 Age-related osteoporosis without current pathological fracture; M15.0 Primary generalized (osteo)arthritis; Z79.899 Other long term (current) drug therapy

== ENCOUNTER → 2022-10-31 | Outpatient (REF) | payer MEDICARE, MEDICAID | LOC: M SFHCPLAZ 17:17 | PROVIDERS: ATTEND Family Medicine | DX: E55.9 Vitamin D deficiency, unspecified (principal); I11.0 Hypertensive heart disease with heart failure; I50.32 Chronic diastolic (congestive) heart failure; R73.01 Impaired fasting glucose ==

== ENCOUNTER 2022-11-07 09:50 | Outpatient (CLI) | payer MEDICARE, MEDICAID ==
[~2022-11-07] VITALS: Ht 165.1 cm; Wt 77.5 kg
[2022-11-07] MEDS ORDERED: EPINEPHrine INJ 1 MG/ML 1ML AMP IM PRN (10:00)
[2022-11-07] MEDS ORDERED: diphenhydrAMINE 50MG/ML VIAL IV PRN (10:00)
[2022-11-07] MEDS ORDERED: methylPREDNISolone 125MG 2ML VIAL IV PRN (10:00)
[2022-11-07] MEDS ORDERED: ALBUTEROL SULFATE 2.5MG/0.5ML INH NEB SOLN INH PRN (10:00)
[2022-11-07] MEDS ORDERED: ABATACEPT 750 MG OVER 30 MINUTES IV ONE ×2 (10:00)
[2022-11-07 10:04] VITALS: BP 119/68
[2022-11-07 10:50] VITALS: BP 115/60
== END 2022-11-07 10:55 | disposition home or self-care (01) ==
LOC: M INFU 09:50
PROVIDERS: ATTEND Internal Medicine Rheumatology
DX: M06.9 Rheumatoid arthritis, unspecified (principal)
CPT/HCPCS: 96365; J0129

== ENCOUNTER 2022-12-23 13:45 | Outpatient (CLI) | payer MEDICARE, MEDICAID ==
[~2022-12-23] VITALS: Ht 165.1 cm; Wt 81.6 kg
[~2022-12-23 13:45] MED LIST changes: +ALBUTEROL SULFATE 2.5MG/0.5ML INH NEB SOLN INH PRN; +EPINEPHrine INJ 1 MG/ML 1ML AMP IM PRN; +diphenhydrAMINE 50MG/ML VIAL IV PRN; +methylPREDNISolone 125MG 2ML VIAL IV PRN
[2022-12-23 14:00] VITALS: BP 113/53; O2SAT 100
[2022-12-23] MEDS ORDERED: ABATACEPT 750 MG OVER 30 MINUTES IV ONE ×2 (14:00)
[2022-12-23] MEDS ORDERED: NS 1,000 ML IV SCH (14:00)
[2022-12-23 15:05] VITALS: BP 119/61; O2SAT 99
== END 2022-12-23 15:05 | disposition home or self-care (01) ==
LOC: M INFU 13:45
PROVIDERS: ATTEND Internal Medicine Rheumatology
DX: M06.9 Rheumatoid arthritis, unspecified (principal)
CPT/HCPCS: 96365; J0129

== ENCOUNTER → 2022-12-30 | Outpatient (REF) | payer MEDICARE, MEDICAID ==
[~2022-12-30] MED LIST changes: -ALBUTEROL SULFATE 2.5MG/0.5ML INH NEB SOLN INH PRN; -EPINEPHrine INJ 1 MG/ML 1ML AMP IM PRN; -diphenhydrAMINE 50MG/ML VIAL IV PRN; -methylPREDNISolone 125MG 2ML VIAL IV PRN
[2022-12-30 19:21] LABS: HEMATOCRIT 40.4 % (36.0-47.0); MEAN CORPUSCULAR HGB CONC 32.2 g/dl (32.0-36.5); MEAN CORPUSCULAR VOLUME 86.9 fl (80.0-96.0); PLATELET COUNT, AUTOMATED 323 10^3/uL (150-450); RED BLOOD COUNT 4.65 10^6/uL (4.00-5.40); WHITE BLOOD COUNT 7.1 10^3/uL (4.0-10.0)
[2022-12-30 19:25] LABS: THYROID STIMULATING HORMONE 2.508 uIU/ML (0.55-4.78)
[2022-12-30 19:29] LABS: BLOOD UREA NITROGEN 25 MG/DL (9-23); CARBON DIOXIDE LEVEL 24 MMOL/L (20-31); CHLORIDE LEVEL 100 MMOL/L (98-107); CREATININE FOR GFR 0.95 MG/DL (0.55-1.30); GLOMERULAR FILTRATION RATE > 60.0 (>39); GLUCOSE, FASTING 92 MG/DL (74-106); POTASSIUM SERUM 4.6 MMOL/L (3.5-5.1); SODIUM LEVEL 136 MMOL/L (136-145)
== END ==
LOC: M LABDRWAD 17:19
PROVIDERS: ATTEND Physician Assistant
DX: R00.2 Palpitations (principal); I50.32 Chronic diastolic (congestive) heart failure; R06.02 Shortness of breath

== ENCOUNTER → 2023-01-09 | Outpatient (REF) | payer MEDICARE, MEDICAID ==
[2023-01-09 13:29] LABS: ALBUMIN 3.8 G/DL (3.2-5.2); ALKALINE PHOSPHATASE 83 U/L (46-116); ALT/SGPT < 9 U/L (7.0-40); AST/SGOT 23 U/L (<34); BLOOD UREA NITROGEN 15 MG/DL (9-23); CALCIUM LEVEL 8.6 MG/DL (8.3-10.6); CARBON DIOXIDE LEVEL 27 MMOL/L (20-31); CHLORIDE LEVEL 104 MMOL/L (98-107); CREATININE FOR GFR 0.89 MG/DL (0.55-1.30); GLOMERULAR FILTRATION RATE > 60.0 (>39); GLUCOSE, FASTING 100 MG/DL (74-106); POTASSIUM SERUM 4.4 MMOL/L (3.5-5.1); SODIUM LEVEL 139 MMOL/L (136-145); TOTAL PROTEIN 6.5 G/DL (5.7-8.2)
[2023-01-09 13:30] LABS: FERRITIN 57.4 NG/ML (7.3-270.7)
[2023-01-09 14:10] LABS: HEMOGLOBIN A1c 5.9 % (4.0-6.0)
[2023-01-10 10:08] LABS: H PYLORI SERUM QUANT IgG ABY 0.29 (0.00-0.79); INSULIN LEVEL 10.2 uIU/mL (2.6-24.9)
== END ==
LOC: M SFHCADAM 09:45
PROVIDERS: ATTEND Internal Medicine Rheumatology
DX: R73.01 Impaired fasting glucose (principal); E55.9 Vitamin D deficiency, unspecified; I11.0 Hypertensive heart disease with heart failure; I50.32 Chronic diastolic (congestive) heart failure

== ENCOUNTER 2023-01-20 13:58 | Outpatient (CLI) | payer MEDICARE, MEDICAID ==
[~2023-01-20] VITALS: Ht 165.1 cm; Wt 81.6 kg
[~2023-01-20 13:58] MED LIST changes: +ALBUTEROL SULFATE 2.5MG/0.5ML INH NEB SOLN INH PRN; +EPINEPHrine INJ 1 MG/ML 1ML AMP IM PRN; +diphenhydrAMINE 50MG/ML VIAL IV PRN; +methylPREDNISolone 125MG 2ML VIAL IV PRN
[2023-01-20] MEDS ORDERED: ABATACEPT 750 MG OVER 30 MINUTES IV ONE ×2 (14:00)
[2023-01-20 14:05] VITALS: BP 128/60; O2SAT 97
[2023-01-20 15:12] VITALS: BP 113/58; O2SAT 94
== END 2023-01-20 15:15 | disposition home or self-care (01) ==
LOC: M INFU 13:58
PROVIDERS: ATTEND Internal Medicine Rheumatology
DX: M06.9 Rheumatoid arthritis, unspecified (principal)
CPT/HCPCS: 96365; J0129

== ENCOUNTER 2023-02-17 05:58 | Outpatient (CLI) | payer MEDICARE, MEDICAID ==
[~2023-02-17] VITALS: Ht 165.1 cm; Wt 77.7 kg
[~2023-02-17 05:58] MED LIST changes: -ALBUTEROL SULFATE 2.5MG/0.5ML INH NEB SOLN INH PRN; -EPINEPHrine INJ 1 MG/ML 1ML AMP IM PRN; -diphenhydrAMINE 50MG/ML VIAL IV PRN; -methylPREDNISolone 125MG 2ML VIAL IV PRN
[2023-02-17] MEDS ORDERED: methylPREDNISolone 125MG 2ML VIAL IV PRN (07:01)
[2023-02-17] MEDS ORDERED: ALBUTEROL SULFATE 2.5MG/0.5ML INH NEB SOLN INH PRN (07:01)
[2023-02-17] MEDS ORDERED: diphenhydrAMINE 50MG/ML VIAL IV PRN (07:01)
[2023-02-17] MEDS ORDERED: EPINEPHrine INJ 1 MG/ML 1ML AMP IM PRN (07:01)
[2023-02-17 12:50] VITALS: BP 126/66; O2SAT 98
[2023-02-17] MEDS ORDERED: ABATACEPT 750 MG OVER 30 MINUTES IV ONE ×2 (14:30)
[2023-02-17 15:10] VITALS: BP 106/56; O2SAT 98
== END 2023-02-17 15:15 ==
LOC: M INFU 05:58
PROVIDERS: ATTEND Internal Medicine Rheumatology
DX: M06.9 Rheumatoid arthritis, unspecified (principal)
CPT/HCPCS: 96365; J0129

== ENCOUNTER → 2023-03-04 | Outpatient (CLI) | payer MEDICARE, MEDICAID | LOC: M WHC 08:49 | PROVIDERS: ATTEND Family Medicine | DX: M81.0 Age-related osteoporosis without current pathological fracture (principal) ==

== ENCOUNTER 2023-03-17 13:45 | Outpatient (CLI) | payer MEDICARE, MEDICAID ==
[~2023-03-17] VITALS: Ht 165.1 cm; Wt 77.7 kg
[~2023-03-17 13:45] MED LIST changes: +ALBUTEROL SULFATE 2.5MG/0.5ML INH NEB SOLN INH PRN; +CURRENT HEIGHT AND WEIGHT NEEDED ON PATIENT XX SCH; +EPINEPHrine INJ 1 MG/ML 1ML AMP IM PRN; +diphenhydrAMINE 50MG/ML VIAL IV PRN; +methylPREDNISolone 125MG 2ML VIAL IV PRN
[2023-03-17 13:56] VITALS: BP 136/65; TEMP 97.9; O2SAT 99
[2023-03-17] MEDS ORDERED: ABATACEPT 750 MG OVER 30 MINUTES IV ONE ×2 (14:10)
[2023-03-17 15:10] VITALS: BP 119/63; O2SAT 99
[2023-03-17 15:21] VITALS: BP 131/61; TEMP 97.3; O2SAT 96
== END 2023-03-17 15:20 ==
LOC: M INFU 13:45
PROVIDERS: ATTEND Internal Medicine Rheumatology
DX: M06.9 Rheumatoid arthritis, unspecified (principal)
CPT/HCPCS: 96365; J0129

== ENCOUNTER → 2023-03-24 | Outpatient (REF) | payer MEDICARE, MEDICAID ==
[~2023-03-24] MED LIST changes: -ALBUTEROL SULFATE 2.5MG/0.5ML INH NEB SOLN INH PRN; -CURRENT HEIGHT AND WEIGHT NEEDED ON PATIENT XX SCH; -EPINEPHrine INJ 1 MG/ML 1ML AMP IM PRN; -diphenhydrAMINE 50MG/ML VIAL IV PRN; -methylPREDNISolone 125MG 2ML VIAL IV PRN
[2023-03-24 13:53] LABS: BASO # 0.1 10^3/uL (0.0-0.2); BASO % 0.8 % (0.0-1.0); EOS # 0.2 10^3/uL (0.0-0.5); EOS % 3.5 % (0.0-3.0); HEMOGLOBIN 12.8 g/dl (12.0-15.5); LYMPH # 1.5 10^3/uL (1.5-5.0); LYMPH % 23.3 % (24.0-44.0); MEAN CORPUSCULAR HEMOGLOBIN 28.4 pg (27.0-33.0); MEAN CORPUSCULAR HGB CONC 32.8 g/dl (32.0-36.5); MEAN CORPUSCULAR VOLUME 86.5 fl (80.0-96.0); MONO # 0.7 10^3/uL (0.0-0.8); NEUTROPHILS # 4.1 10^3/uL (1.5-8.5); NEUTROPHILS % 61.9 % (36.0-66.0); PLATELET COUNT, AUTOMATED 310 10^3/uL (150-450); RED BLOOD COUNT 4.51 10^6/uL (4.00-5.40); WHITE BLOOD COUNT 6.6 10^3/uL (4.0-10.0)
[2023-03-24 14:23] LABS: ALBUMIN 3.8 G/DL (3.2-5.2); ALKALINE PHOSPHATASE 67 U/L (46-116); ALT/SGPT 26 U/L (7.0-40); AST/SGOT 21 U/L (<34); BILIRUBIN,TOTAL 0.6 MG/DL (0.3-1.2); BLOOD UREA NITROGEN 28 MG/DL (9-23); BLOOD UREA NITROGEN 29 MG/DL (9-23); CALCIUM LEVEL 9.1 MG/DL (8.3-10.6); CARBON DIOXIDE LEVEL 30 MMOL/L (20-31); CHLORIDE LEVEL 100 MMOL/L (98-107); CHLORIDE LEVEL 99 MMOL/L (98-107); CREATININE FOR GFR 0.86 MG/DL (0.55-1.30); GLOMERULAR FILTRATION RATE > 60.0 (>32); GLUCOSE, FASTING 97 MG/DL (74-106); GLUCOSE, FASTING 98 MG/DL (74-106); POTASSIUM SERUM 4.9 MMOL/L (3.5-5.1); SODIUM LEVEL 136 MMOL/L (136-145); SODIUM LEVEL 137 MMOL/L (136-145); TOTAL PROTEIN 6.7 G/DL (5.7-8.2)
[2023-03-24 14:49] LABS: ERYTHROCYTE SEDIMENTATION RATE 21 mm/hr (0-30)
== END ==
LOC: M SFHCADAM 09:13
PROVIDERS: ATTEND Internal Medicine Rheumatology
DX: M06.09 Rheumatoid arthritis without rheumatoid factor, multiple sites (principal); M81.0 Age-related osteoporosis without current pathological fracture; M15.0 Primary generalized (osteo)arthritis; Z79.899 Other long term (current) drug therapy

== ENCOUNTER → 2023-04-08 | Outpatient (REF) | payer MEDICARE, MEDICAID | LOC: M SFHCPLAZ 14:57 | PROVIDERS: ATTEND Family Medicine | DX: R73.01 Impaired fasting glucose (principal); E03.9 Hypothyroidism, unspecified; I10 Essential (primary) hypertension; D50.9 Iron deficiency anemia, unspecified; R00.2 Palpitations ==

== ENCOUNTER 2023-04-14 13:50 | Outpatient (CLI) | payer MEDICARE, MEDICAID ==
[~2023-04-14] VITALS: Ht 157.5 cm; Wt 82.0 kg
[2023-04-14 13:40] VITALS: BP 112/55; O2SAT 100
[~2023-04-14 13:50] MED LIST changes: +ALBUTEROL SULFATE 2.5MG/0.5ML INH NEB SOLN INH PRN; +EPINEPHrine INJ 1 MG/ML 1ML AMP IM PRN; +diphenhydrAMINE 50MG/ML VIAL IV PRN; +methylPREDNISolone 125MG 2ML VIAL IV PRN
[2023-04-14] MEDS ORDERED: ABATACEPT 750 MG OVER 30 MINUTES IV ONE ×2 (14:00)
[2023-04-14 14:40] VITALS: BP 112/55; TEMP 36.1; O2SAT 100
[2023-04-14 14:50] VITALS: BP 115/71; O2SAT 96
== END 2023-04-14 14:50 | disposition home or self-care (01) ==
LOC: M INFU 13:50
PROVIDERS: ATTEND Internal Medicine Rheumatology
DX: M06.9 Rheumatoid arthritis, unspecified (principal)
CPT/HCPCS: 96365; J0129

== ENCOUNTER → 2023-04-29 | Outpatient (REF) | payer MEDICARE, MEDICAID ==
[~2023-04-29] MED LIST changes: -ALBUTEROL SULFATE 2.5MG/0.5ML INH NEB SOLN INH PRN; -EPINEPHrine INJ 1 MG/ML 1ML AMP IM PRN; -diphenhydrAMINE 50MG/ML VIAL IV PRN; -methylPREDNISolone 125MG 2ML VIAL IV PRN
[2023-04-29 13:41] LABS: BILIRUBIN,TOTAL 0.7 MG/DL (0.3-1.2); CALCIUM LEVEL 8.9 MG/DL (8.3-10.6); CREATININE FOR GFR 0.97 MG/DL (0.55-1.30); GLOMERULAR FILTRATION RATE 58.8 (>32); MAGNESIUM LEVEL 2.3 MG/DL (1.8-2.4); POTASSIUM SERUM 4.9 MMOL/L (3.5-5.1); TOTAL PROTEIN 7.1 G/DL (5.7-8.2)
[2023-04-29 13:42] LABS: PTH INTACT 214.1 PG/ML (18.5-88.0)
[2023-04-29 13:45] LABS: FERRITIN 25.3 NG/ML (7.3-270.7); FREE T4 1.19 NG/DL (0.89-1.76); THYROID STIMULATING HORMONE 2.459 uIU/ML (0.55-4.78)
[2023-04-29 13:58] LABS: HEMOGLOBIN A1c 5.9 % (4.0-6.0)
[2023-04-29 14:04] LABS: BASO # 0.1 10^3/uL (0.0-0.2); BASO % 0.7 % (0.0-1.0); EOS # 0.2 10^3/uL (0.0-0.5); EOS % 2.5 % (0.0-3.0); HEMOGLOBIN 14.6 g/dl (12.0-15.5); LYMPH # 2.1 10^3/uL (1.5-5.0); LYMPH % 25.3 % (24.0-44.0); MEAN CORPUSCULAR HEMOGLOBIN 28.5 pg (27.0-33.0); MEAN CORPUSCULAR HGB CONC 32.4 g/dl (32.0-36.5); MEAN CORPUSCULAR VOLUME 87.7 fl (80.0-96.0); MONO % 12.1 % (2.0-8.0); NEUTROPHILS % 59.2 % (36.0-66.0); PLATELET COUNT, AUTOMATED 378 10^3/uL (150-450); RED BLOOD COUNT 5.13 10^6/uL (4.00-5.40); WHITE BLOOD COUNT 8.5 10^3/uL (4.0-10.0)
== END ==
LOC: M SFHCADAM 09:28
PROVIDERS: ATTEND Family Medicine
DX: R73.01 Impaired fasting glucose (principal); E03.9 Hypothyroidism, unspecified; I10 Essential (primary) hypertension; D50.9 Iron deficiency anemia, unspecified; R00.2 Palpitations; Z79.899 Other long term (current) drug therapy

== ENCOUNTER → 2023-04-30 | Outpatient (REF) | payer MEDICARE, MEDICAID | LOC: M SFHCRHEU 10:36 | PROVIDERS: ATTEND Internal Medicine Rheumatology | DX: M06.09 Rheumatoid arthritis without rheumatoid factor, multiple sites (principal); M81.0 Age-related osteoporosis without current pathological fracture; M15.0 Primary generalized (osteo)arthritis; Z79.899 Other long term (current) drug therapy; H04.203 Unspecified epiphora, bilateral ==

== ENCOUNTER 2023-05-12 13:31 | Outpatient (CLI) | payer MEDICARE, MEDICAID ==
[~2023-05-12] VITALS: Ht 157.5 cm; Wt 81.4 kg
[~2023-05-12 13:31] MED LIST changes: +ALBUTEROL SULFATE 2.5MG/0.5ML INH NEB SOLN INH PRN; +EPINEPHrine INJ 1 MG/ML 1ML AMP IM PRN; +diphenhydrAMINE 50MG/ML VIAL IV PRN; +methylPREDNISolone 125MG 2ML VIAL IV PRN
[2023-05-12 13:50] VITALS: BP 129/72; O2SAT 97
[2023-05-12] MEDS ORDERED: ABATACEPT 750 MG OVER 30 MINUTES IV ONE ×2 (14:00)
[2023-05-12 15:15] VITALS: BP 148/87; O2SAT 97
== END 2023-05-12 15:15 ==
LOC: M INFU 13:31
PROVIDERS: ATTEND Internal Medicine Rheumatology
DX: M06.9 Rheumatoid arthritis, unspecified (principal)
CPT/HCPCS: 96365; J0129

== ENCOUNTER 2023-06-09 14:00 | Outpatient (CLI) | payer MEDICARE, MEDICAID ==
[~2023-06-09] VITALS: Ht 157.5 cm; Wt 80.9 kg
[2023-06-09 14:00] VITALS: BP 129/74; O2SAT 98
[~2023-06-09 14:00] MED LIST changes: +ABATACEPT 750 MG OVER 30 MINUTES IV ONE; +NS 1,000 ML IV SCH
[2023-06-09 15:19] VITALS: BP 129/74; O2SAT 98
[2023-06-09 15:20] VITALS: BP 129/74; TEMP 36.9; O2SAT 98
== END 2023-06-09 15:20 | disposition home or self-care (01) ==
LOC: M INFU 14:00
PROVIDERS: ATTEND Internal Medicine Rheumatology
DX: M06.9 Rheumatoid arthritis, unspecified (principal)
CPT/HCPCS: 96365; J0129

== ENCOUNTER 2023-07-08 13:30 | Outpatient (CLI) | payer MEDICARE, MEDICAID ==
[~2023-07-08] VITALS: Ht 157.5 cm; Wt 83.0 kg
[~2023-07-08 13:30] MED LIST changes: -ABATACEPT 750 MG OVER 30 MINUTES IV ONE; -NS 1,000 ML IV SCH
[2023-07-08] MEDS ORDERED: ABATACEPT 750 MG OVER 30 MINUTES IV ONE ×2 (14:00)
[2023-07-08 14:01] VITALS: BP 122/57; O2SAT 97
[2023-07-08 15:20] VITALS: BP 109/53; O2SAT 98
== END 2023-07-08 15:25 | disposition home or self-care (01) ==
LOC: M INFU 13:30
PROVIDERS: ATTEND Internal Medicine Rheumatology
DX: M06.9 Rheumatoid arthritis, unspecified (principal)
CPT/HCPCS: 96365; J0129

== ENCOUNTER 2023-08-05 14:00 | Outpatient (CLI) | payer MEDICARE, MEDICAID ==
[~2023-08-05] VITALS: Ht 165.1 cm; Wt 80.9 kg
[2023-08-05 13:55] VITALS: BP 129/58; TEMP 97.3; O2SAT 97
[~2023-08-05 14:00] MED LIST changes: +ABATACEPT 750 MG OVER 30 MINUTES IV ONE
[2023-08-05 15:15] VITALS: BP 104/54; TEMP 98.8; O2SAT 98
== END 2023-08-05 15:25 ==
LOC: M INFU 14:00
PROVIDERS: ATTEND Internal Medicine Rheumatology
DX: M06.9 Rheumatoid arthritis, unspecified (principal)
CPT/HCPCS: 96365; J0129

== ENCOUNTER → 2023-08-06 | Outpatient (REF) | payer MEDICARE, MEDICAID ==
[~2023-08-06] MED LIST changes: -ABATACEPT 750 MG OVER 30 MINUTES IV ONE; -ALBUTEROL SULFATE 2.5MG/0.5ML INH NEB SOLN INH PRN; -EPINEPHrine INJ 1 MG/ML 1ML AMP IM PRN; -diphenhydrAMINE 50MG/ML VIAL IV PRN; -methylPREDNISolone 125MG 2ML VIAL IV PRN
[2023-08-06 16:22] LABS: BASO % 0.4 % (0.0-1.0); EOS # 0.3 10^3/uL (0.0-0.5); EOS % 2.6 % (0.0-3.0); HEMATOCRIT 40.9 % (36.0-47.0); HEMOGLOBIN 14.2 g/dl (12.0-15.5); LYMPH # 2.2 10^3/uL (1.5-5.0); LYMPH % 20.9 % (24.0-44.0); MEAN CORPUSCULAR HEMOGLOBIN 30.3 pg (27.0-33.0); MEAN CORPUSCULAR HGB CONC 34.7 g/dl (32.0-36.5); MEAN CORPUSCULAR VOLUME 87.4 fl (80.0-96.0); MONO % 9.7 % (2.0-8.0); NEUTROPHILS # 7.1 10^3/uL (1.5-8.5); NEUTROPHILS % 65.9 % (36.0-66.0); PLATELET COUNT, AUTOMATED 438 10^3/uL (150-450); RED BLOOD COUNT 4.68 10^6/uL (4.00-5.40); WHITE BLOOD COUNT 10.7 10^3/uL (4.0-10.0)
[2023-08-06 16:45] LABS: C REACTIVE PROTEIN QUANTITATIV 3.8 MG/DL (<1.0)
[2023-08-06 16:47] LABS: ALBUMIN 3.9 G/DL (3.2-5.2); CALCIUM LEVEL 9.1 MG/DL (8.3-10.6); CREATININE FOR GFR 1.07 MG/DL (0.55-1.30); GLOMERULAR FILTRATION RATE 52.5 (>32); POTASSIUM SERUM 4.5 MMOL/L (3.5-5.1); TOTAL PROTEIN 7.3 G/DL (5.7-8.2)
[2023-08-06 18:51] LABS: ERYTHROCYTE SEDIMENTATION RATE 46 mm/hr (0-30)
== END ==
LOC: M SFHCADAM 13:39
PROVIDERS: ATTEND Family Medicine
DX: M06.09 Rheumatoid arthritis without rheumatoid factor, multiple sites (principal); M81.0 Age-related osteoporosis without current pathological fracture; M15.0 Primary generalized (osteo)arthritis; Z79.899 Other long term (current) drug therapy; H04.203 Unspecified epiphora, bilateral

== ENCOUNTER → 2023-08-14 | Outpatient (REF) | payer MEDICARE, MEDICAID | LOC: M SFHCPLAZ 12:39 | PROVIDERS: ATTEND Family Medicine | DX: D50.9 Iron deficiency anemia, unspecified (principal); I50.32 Chronic diastolic (congestive) heart failure; E55.9 Vitamin D deficiency, unspecified; K76.0 Fatty (change of) liver, not elsewhere classified; Z53.9 Procedure and treatment not carried out, unspecified reason ==

== ENCOUNTER 2023-09-02 14:00 | Outpatient (CLI) | payer MEDICARE, MEDICAID ==
[~2023-09-02] VITALS: Ht 165.1 cm; Wt 80.0 kg
[2023-09-02 14:00] VITALS: BP 158/76; O2SAT 98
[~2023-09-02 14:00] MED LIST changes: +ALBUTEROL SULFATE 2.5MG/0.5ML INH NEB SOLN INH PRN; +EPINEPHrine INJ 1 MG/ML 1ML AMP IM PRN; +diphenhydrAMINE 50MG/ML VIAL IV PRN; +methylPREDNISolone 125MG 2ML VIAL IV PRN
[2023-09-02] MEDS: ABATACEPT 750 MG OVER 30 MINUTES IV ONE (14:50)
[2023-09-02 15:28] VITALS: BP 121/79; O2SAT 97
== END 2023-09-02 15:30 | disposition home or self-care (01) ==
LOC: M INFU 14:00
PROVIDERS: ATTEND Internal Medicine Rheumatology
DX: M06.9 Rheumatoid arthritis, unspecified (principal)
CPT/HCPCS: 96365; J0129

== ENCOUNTER → 2023-09-15 | Outpatient (CLI) | payer MEDICARE, MEDICAID ==
[~2023-09-15] MED LIST changes: -ALBUTEROL SULFATE 2.5MG/0.5ML INH NEB SOLN INH PRN; -EPINEPHrine INJ 1 MG/ML 1ML AMP IM PRN; -diphenhydrAMINE 50MG/ML VIAL IV PRN; -methylPREDNISolone 125MG 2ML VIAL IV PRN
== END ==
LOC: M CARPUL 12:32
PROVIDERS: ATTEND Family Medicine
DX: R06.09 Other forms of dyspnea (principal)

== ENCOUNTER 2023-09-30 13:55 | Outpatient (CLI) | payer MEDICARE, MEDICAID ==
[~2023-09-30] VITALS: Ht 157.5 cm; Wt 83.6 kg
[~2023-09-30 13:55] MED LIST changes: +ALBUTEROL SULFATE 2.5MG/0.5ML INH NEB SOLN INH PRN; +EPINEPHrine INJ 1 MG/ML 1ML AMP IM PRN; +diphenhydrAMINE 50MG/ML VIAL IV PRN; +methylPREDNISolone 125MG 2ML VIAL IV PRN
[2023-09-30 14:22] VITALS: BP 122/66; O2SAT 98
[2023-09-30] MEDS: ABATACEPT 750 MG OVER 30 MINUTES IV ONE (15:10)
[2023-09-30 15:45] VITALS: BP 146/70; O2SAT 97
== END 2023-09-30 15:45 ==
LOC: M INFU 13:55
PROVIDERS: ATTEND Internal Medicine Rheumatology
DX: M06.9 Rheumatoid arthritis, unspecified (principal)
CPT/HCPCS: 96365; J0129

== ENCOUNTER → 2023-10-06 | Outpatient (REF) | payer MEDICARE, MEDICAID ==
[~2023-10-06] MED LIST changes: -ALBUTEROL SULFATE 2.5MG/0.5ML INH NEB SOLN INH PRN; -EPINEPHrine INJ 1 MG/ML 1ML AMP IM PRN; -diphenhydrAMINE 50MG/ML VIAL IV PRN; -methylPREDNISolone 125MG 2ML VIAL IV PRN
[2023-10-06 13:15] LABS: BASO # 0.1 10^3/uL (0.0-0.2); BASO % 0.9 % (0.0-1.0); EOS # 0.3 10^3/uL (0.0-0.5); EOS % 4.3 % (0.0-3.0); HEMATOCRIT 40.3 % (36.0-47.0); LYMPH # 1.4 10^3/uL (1.5-5.0); LYMPH % 23.3 % (24.0-44.0); MEAN CORPUSCULAR HGB CONC 32.3 g/dl (32.0-36.5); MONO # 0.7 10^3/uL (0.0-0.8); MONO % 12.2 % (2.0-8.0); NEUTROPHILS # 3.4 10^3/uL (1.5-8.5); PLATELET COUNT, AUTOMATED 328 10^3/uL (150-450); RED BLOOD COUNT 4.48 10^6/uL (4.00-5.40); WHITE BLOOD COUNT 5.8 10^3/uL (4.0-10.0)
[2023-10-06 13:28] LABS: ERYTHROCYTE SEDIMENTATION RATE 23 mm/hr (0-30)
[2023-10-06 13:48] LABS: ALBUMIN 4.1 G/DL (3.2-5.2); ALKALINE PHOSPHATASE 63 U/L (46-116); ALT/SGPT 27 U/L (7.0-40); AST/SGOT 14 U/L (<34); BILIRUBIN,TOTAL 0.5 MG/DL (0.3-1.2); BLOOD UREA NITROGEN 25 MG/DL (9-23); CALCIUM LEVEL 9.3 MG/DL (8.3-10.6); CARBON DIOXIDE LEVEL 30 MMOL/L (20-31); CHLORIDE LEVEL 102 MMOL/L (98-107); GLOMERULAR FILTRATION RATE > 60.0 (>32); GLUCOSE, FASTING 92 MG/DL (74-106); POTASSIUM SERUM 4.7 MMOL/L (3.5-5.1); SODIUM LEVEL 136 MMOL/L (136-145); TOTAL PROTEIN 6.7 G/DL (5.7-8.2)
== END ==
LOC: M SFHCADAM 09:11
PROVIDERS: ATTEND Internal Medicine Rheumatology
DX: M06.09 Rheumatoid arthritis without rheumatoid factor, multiple sites (principal); M81.0 Age-related osteoporosis without current pathological fracture; M15.0 Primary generalized (osteo)arthritis; Z79.899 Other long term (current) drug therapy; H04.203 Unspecified epiphora, bilateral; D50.9 Iron deficiency anemia, unspecified; I50.32 Chronic diastolic (congestive) heart failure

== ENCOUNTER 2023-10-22 09:35 | Day surgery (SDC) | payer MEDICARE, MEDICAID ==
[~2023-10-22] VITALS: Ht 157.5 cm; Wt 81.6 kg
[~2023-10-22 09:35] MED LIST changes: +ASPI81CH33 PO; +CALC1CAP31 PO; +GABA-1171 PO; +TOBRADEX OPHTH OINT 3.5 GM As Ordered ONE; +VALA1TAB5 PO
[2023-10-22] MEDS ORDERED: fentaNYL 100 MCG/2 ML INJECTION As Ordered ONE (11:08)
[2023-10-22] MEDS ORDERED: MIDAZOLAM INJ 2MG/2ML VIAL As Ordered ONE (11:08)
[2023-10-22] MEDS: LIDOCAINE 3.5 % 1ML OPHTH TOPICAL GEL OU ONE (11:27)
[2023-10-22] MEDS ORDERED: LIDOCAINE 2% 100MG/5ML SDV (FOR ANES.) As Ordered ONE (11:44)
[2023-10-22] MEDS ORDERED: propofoL 200 MG/20 ML VIAL As Ordered ONE (11:44)
[2023-10-22] MEDS ORDERED: ONDANSETRON 4MG 2ML VIAL As Ordered ONE (11:44)
[2023-10-22] MEDS: POVIDONE-IODINE 5% OPHTH PREP SOL 30ML As Ordered ONE (12:00)
[2023-10-22] MEDS: LIDOCAINE 2% W/EPINEPHRINE 20ML VIAL **PRES FREE As Ordered ONE (12:27)
[2023-10-22 12:37] VITALS: BP 118/58; TEMP 97.4; O2SAT 97
== END 2023-10-22 13:08 | disposition home or self-care (01) ==
LOC: M SDC 09:35
PROVIDERS: ATTEND Ophthalmology
DX: H02.403 Unspecified ptosis of bilateral eyelids (principal); I50.9 Heart failure, unspecified; I35.8 Other nonrheumatic aortic valve disorders; G47.30 Sleep apnea, unspecified; Z79.899 Other long term (current) drug therapy
CPT/HCPCS: 67904; 88302; J2250; J2405; J3010

== ENCOUNTER 2023-10-28 14:00 | Outpatient (CLI) | payer MEDICARE, MEDICAID ==
[~2023-10-28] VITALS: Ht 157.5 cm; Wt 81.3 kg
[2023-10-28 14:00] VITALS: BP 126/75; O2SAT 97
[~2023-10-28 14:00] MED LIST changes: +ALBUTEROL SULFATE 2.5MG/0.5ML INH NEB SOLN INH PRN; +EPINEPHrine INJ 1 MG/ML 1ML AMP IM PRN; -TOBRADEX OPHTH OINT 3.5 GM As Ordered ONE; +diphenhydrAMINE 50MG/ML VIAL IV PRN; +methylPREDNISolone 125MG 2ML VIAL IV PRN
[2023-10-28] MEDS: ABATACEPT 750 MG OVER 30 MINUTES IV ONE (14:35)
[2023-10-28 15:15] VITALS: BP 120/66; O2SAT 99
== END 2023-10-28 15:15 ==
LOC: M INFU 14:00
PROVIDERS: ATTEND Internal Medicine Rheumatology
DX: M06.9 Rheumatoid arthritis, unspecified (principal)
CPT/HCPCS: 96365; J0129

== ENCOUNTER → 2023-11-14 | Outpatient (CLI) | payer MEDICARE, MEDICAID ==
[~2023-11-14] MED LIST changes: -ALBUTEROL SULFATE 2.5MG/0.5ML INH NEB SOLN INH PRN; -EPINEPHrine INJ 1 MG/ML 1ML AMP IM PRN; -diphenhydrAMINE 50MG/ML VIAL IV PRN; -methylPREDNISolone 125MG 2ML VIAL IV PRN
== END ==
LOC: M WHC 13:13
PROVIDERS: ATTEND Family Medicine
DX: Z12.31 Encounter for screening mammogram for malignant neoplasm of breast (principal); R92.323 Mammographic fibroglandular density, bilateral breasts

== ENCOUNTER 2023-11-25 13:30 | Outpatient (CLI) | payer MEDICARE, MEDICAID ==
[~2023-11-25] VITALS: Ht 157.5 cm; Wt 80.9 kg
[2023-11-25 13:30] VITALS: BP 123/67; O2SAT 98
[~2023-11-25 13:30] MED LIST changes: +ALBUTEROL SULFATE 2.5MG/0.5ML INH NEB SOLN INH PRN; +EPINEPHrine INJ 1 MG/ML 1ML AMP IM PRN; +diphenhydrAMINE 50MG/ML VIAL IV PRN; +methylPREDNISolone 125MG 2ML VIAL IV PRN
[2023-11-25] MEDS: ABATACEPT 750 MG OVER 30 MINUTES IV ONE (14:22)
[2023-11-25 14:50] VITALS: BP 135/66; O2SAT 97
== END 2023-11-25 14:52 | disposition home or self-care (01) ==
LOC: M INFU 13:30
PROVIDERS: ATTEND Internal Medicine Rheumatology
DX: M06.9 Rheumatoid arthritis, unspecified (principal)
CPT/HCPCS: 96365; J0129

== ENCOUNTER → 2023-12-22 | Outpatient (REF) | payer MEDICARE, MEDICAID ==
[~2023-12-22] MED LIST changes: -ALBUTEROL SULFATE 2.5MG/0.5ML INH NEB SOLN INH PRN; -EPINEPHrine INJ 1 MG/ML 1ML AMP IM PRN; -diphenhydrAMINE 50MG/ML VIAL IV PRN; -methylPREDNISolone 125MG 2ML VIAL IV PRN
[2023-12-22 17:18] LABS: ALBUMIN 4.1 G/DL (3.2-5.2); ALKALINE PHOSPHATASE 69 U/L (46-116); ALT/SGPT 27 U/L (7.0-40); AST/SGOT 23 U/L (<34); BILIRUBIN,TOTAL 0.6 MG/DL (0.3-1.2); BLOOD UREA NITROGEN 21 MG/DL (9-23); CALCIUM LEVEL 9.1 MG/DL (8.3-10.6); CARBON DIOXIDE LEVEL 30 MMOL/L (20-31); CHLORIDE LEVEL 100 MMOL/L (98-107); GLOMERULAR FILTRATION RATE > 60.0 (>32); GLUCOSE, FASTING 98 MG/DL (74-106); POTASSIUM SERUM 4.6 MMOL/L (3.5-5.1); PTH INTACT 122.1 PG/ML (18.5-88.0); SODIUM LEVEL 136 MMOL/L (136-145); TOTAL PROTEIN 6.9 G/DL (5.7-8.2)
[2023-12-22 17:20] LABS: FERRITIN 42.6 NG/ML (7.3-270.7)
[2023-12-22 17:59] LABS: INR 1.04; PROTHROMBIN TIME 13.3 SECONDS (12.5-14.5)
[2023-12-22 20:11] LABS: BASO # 0.1 10^3/uL (0.0-0.2); BASO % 0.8 % (0.0-1.0); EOS # 0.2 10^3/uL (0.0-0.5); HEMATOCRIT 40.4 % (36.0-47.0); HEMOGLOBIN 13.4 g/dl (12.0-15.5); LYMPH # 1.7 10^3/uL (1.5-5.0); LYMPH % 27.2 % (24.0-44.0); MEAN CORPUSCULAR HEMOGLOBIN 29.4 pg (27.0-33.0); MEAN CORPUSCULAR HGB CONC 33.2 g/dl (32.0-36.5); MEAN CORPUSCULAR VOLUME 88.6 fl (80.0-96.0); MONO # 0.6 10^3/uL (0.0-0.8); MONO % 9.1 % (2.0-8.0); NEUTROPHILS # 3.8 10^3/uL (1.5-8.5); NEUTROPHILS % 59.6 % (36.0-66.0); PLATELET COUNT, AUTOMATED 320 10^3/uL (150-450); RED BLOOD COUNT 4.56 10^6/uL (4.00-5.40); WHITE BLOOD COUNT 6.4 10^3/uL (4.0-10.0)
== END ==
LOC: M SFHCPLAZ 11:45
PROVIDERS: ATTEND Family Medicine
DX: M06.09 Rheumatoid arthritis without rheumatoid factor, multiple sites (principal); D50.9 Iron deficiency anemia, unspecified; I50.32 Chronic diastolic (congestive) heart failure; E55.9 Vitamin D deficiency, unspecified; K76.0 Fatty (change of) liver, not elsewhere classified; M81.0 Age-related osteoporosis without current pathological fracture; M15.0 Primary generalized (osteo)arthritis; Z79.899 Other long term (current) drug therapy; H04.203 Unspecified epiphora, bilateral; E78.2 Mixed hyperlipidemia

== ENCOUNTER 2023-12-23 13:29 | Outpatient (CLI) | payer MEDICARE, MEDICAID ==
[~2023-12-23] VITALS: Ht 157.5 cm; Wt 80.0 kg
[~2023-12-23 13:29] MED LIST changes: +ALBUTEROL SULFATE 2.5MG/0.5ML INH NEB SOLN INH PRN; +EPINEPHrine INJ 1 MG/ML 1ML AMP IM PRN; +diphenhydrAMINE 50MG/ML VIAL IV PRN; +methylPREDNISolone 125MG 2ML VIAL IV PRN
[2023-12-23] MEDS: ABATACEPT 750 MG OVER 30 MINUTES IV ONE (14:33)
[2023-12-23 15:08] VITALS: BP 104/67; O2SAT 98
[2023-12-23 15:10] VITALS: BP 104/67; TEMP 36.4; O2SAT 98
== END 2023-12-23 15:10 ==
LOC: M INFU 13:29
PROVIDERS: ATTEND Internal Medicine Rheumatology
DX: M06.9 Rheumatoid arthritis, unspecified (principal); E55.9 Vitamin D deficiency, unspecified; K76.0 Fatty (change of) liver, not elsewhere classified
CPT/HCPCS: 85730; 96365; J0129

== ENCOUNTER → 2023-12-23 | Outpatient (REF) | payer MEDICARE, MEDICAID | LOC: M LABDRWAD 12:18 | PROVIDERS: ATTEND Family Medicine | DX: E55.9 Vitamin D deficiency, unspecified (principal); K76.0 Fatty (change of) liver, not elsewhere classified ==

== ENCOUNTER → 2023-12-30 | Outpatient (REF) | payer MEDICARE, MEDICAID ==
[~2023-12-30] MED LIST changes: -ALBUTEROL SULFATE 2.5MG/0.5ML INH NEB SOLN INH PRN; -EPINEPHrine INJ 1 MG/ML 1ML AMP IM PRN; -diphenhydrAMINE 50MG/ML VIAL IV PRN; -methylPREDNISolone 125MG 2ML VIAL IV PRN
== END ==
LOC: M SFHCPLAZ 14:09
PROVIDERS: ATTEND Family Medicine
DX: D50.9 Iron deficiency anemia, unspecified (principal); I50.32 Chronic diastolic (congestive) heart failure; E55.9 Vitamin D deficiency, unspecified; R73.01 Impaired fasting glucose

== ENCOUNTER → 2024-01-06 | Outpatient (REF) | payer MEDICARE, MEDICAID ==
[2024-01-06 17:42] LABS: MAGNESIUM LEVEL 2.1 MG/DL (1.8-2.4)
[2024-01-06 17:45] LABS: THYROID STIMULATING HORMONE 1.816 uIU/ML (0.55-4.78)
== END ==
LOC: M LABDRWAD 16:54
PROVIDERS: ATTEND Physician Assistant
DX: I48.3 Typical atrial flutter (principal); E07.9 Disorder of thyroid, unspecified

== ENCOUNTER 2024-01-20 13:00 | Outpatient (CLI) | payer MEDICARE, MEDICAID ==
[~2024-01-20] VITALS: Ht 165.1 cm; Wt 83.0 kg
[~2024-01-20 13:00] MED LIST changes: +ALBUTEROL SULFATE 2.5MG/0.5ML INH NEB SOLN INH PRN; +EPINEPHrine INJ 1 MG/ML 1ML AMP IM PRN; +diphenhydrAMINE 50MG/ML VIAL IV PRN; +methylPREDNISolone 125MG 2ML VIAL IV PRN
[2024-01-20 13:25] VITALS: BP 106/62; O2SAT 97
[2024-01-20] MEDS: ABATACEPT 750 MG OVER 30 MINUTES IV ONE (14:03)
[2024-01-20 14:35] VITALS: BP 121/65; O2SAT 97
== END 2024-01-20 15:05 ==
LOC: M INFU 13:00
PROVIDERS: ATTEND Internal Medicine Rheumatology
DX: M06.9 Rheumatoid arthritis, unspecified (principal)
CPT/HCPCS: 96365; J0129

== ENCOUNTER 2024-02-17 13:06 | Outpatient (CLI) | payer MEDICARE, MEDICAID ==
[~2024-02-17] VITALS: Ht 157.5 cm; Wt 79.0 kg
[2024-02-17 13:30] VITALS: BP 112/55; O2SAT 96
[2024-02-17] MEDS: ABATACEPT 750 MG OVER 30 MINUTES IV ONE (14:10)
[2024-02-17 14:35] VITALS: BP 90/58; O2SAT 97
== END 2024-02-17 14:45 ==
LOC: M INFU 13:06
PROVIDERS: ATTEND Internal Medicine Rheumatology
DX: M06.9 Rheumatoid arthritis, unspecified (principal)
CPT/HCPCS: 96365; 99490; J0129

== ENCOUNTER → 2024-02-18 | Outpatient (REF) | payer MEDICARE, MEDICAID ==
[~2024-02-18] MED LIST changes: -ALBUTEROL SULFATE 2.5MG/0.5ML INH NEB SOLN INH PRN; -EPINEPHrine INJ 1 MG/ML 1ML AMP IM PRN; -diphenhydrAMINE 50MG/ML VIAL IV PRN; -methylPREDNISolone 125MG 2ML VIAL IV PRN
[2024-02-18 18:18] LABS: HEMATOCRIT 40.7 % (36.0-47.0); HEMOGLOBIN 13.3 g/dl (12.0-15.5); MEAN CORPUSCULAR HEMOGLOBIN 29.6 pg (27.0-33.0); MEAN CORPUSCULAR HGB CONC 32.7 g/dl (32.0-36.5); MEAN CORPUSCULAR VOLUME 90.4 fl (80.0-96.0); PLATELET COUNT, AUTOMATED 424 10^3/uL (150-450); WHITE BLOOD COUNT 8.6 10^3/uL (4.0-10.0)
== END ==
LOC: M LABDRWAD 17:11
PROVIDERS: ATTEND Physician Assistant
DX: I48.3 Typical atrial flutter (principal)

== ENCOUNTER 2024-03-16 13:30 | Outpatient (CLI) | payer MEDICARE, MEDICAID ==
[~2024-03-16] VITALS: Ht 165.1 cm; Wt 83.5 kg
[2024-03-16 13:27] VITALS: BP 101/67; TEMP 98.4; O2SAT 96
[2024-03-16 13:30] VITALS: BP 101/67; O2SAT 96
[~2024-03-16 13:30] MED LIST changes: +ALBUTEROL SULFATE 2.5MG/0.5ML INH NEB SOLN INH PRN; +EPINEPHrine INJ 1 MG/ML 1ML AMP IM PRN; +diphenhydrAMINE 50MG/ML VIAL IV PRN; +methylPREDNISolone 125MG 2ML VIAL IV PRN
[2024-03-16] MEDS: ABATACEPT 750 MG OVER 30 MINUTES IV ONE (13:45)
[2024-03-16 14:15] VITALS: BP 115/71; O2SAT 97
== END 2024-03-16 14:25 ==
LOC: M INFU 13:30
PROVIDERS: ATTEND Internal Medicine Rheumatology
DX: M06.9 Rheumatoid arthritis, unspecified (principal)
CPT/HCPCS: 96365; J0129

== ENCOUNTER 2024-04-13 13:30 | Outpatient (CLI) | payer MEDICARE, MEDICAID ==
[~2024-04-13] VITALS: Ht 157.5 cm; Wt 79.5 kg
[2024-04-13 13:30] VITALS: BP 100/64; O2SAT 97
[2024-04-13] MEDS: ABATACEPT 750 MG OVER 30 MINUTES IV ONE (14:19)
[2024-04-13 14:56] VITALS: BP 141/60; O2SAT 98
== END 2024-04-13 14:54 ==
LOC: M INFU 13:30
PROVIDERS: ATTEND Internal Medicine Rheumatology
DX: M06.9 Rheumatoid arthritis, unspecified (principal)
CPT/HCPCS: 96365; J0129

== ENCOUNTER → 2024-04-19 | Outpatient (CLI) | payer MEDICARE, MEDICAID ==
[~2024-04-19] MED LIST changes: -ALBUTEROL SULFATE 2.5MG/0.5ML INH NEB SOLN INH PRN; -EPINEPHrine INJ 1 MG/ML 1ML AMP IM PRN; -diphenhydrAMINE 50MG/ML VIAL IV PRN; -methylPREDNISolone 125MG 2ML VIAL IV PRN
[2024-04-19 14:25] LABS: BASO # 0.1 10^3/uL (0.0-0.2); BASO % 0.7 % (0.0-1.0); EOS # 0.2 10^3/uL (0.0-0.5); EOS % 2.1 % (0.0-3.0); HEMATOCRIT 42.2 % (36.0-47.0); HEMOGLOBIN 13.6 g/dl (12.0-15.5); LYMPH # 1.6 10^3/uL (1.5-5.0); LYMPH % 21.4 % (24.0-44.0); MEAN CORPUSCULAR HEMOGLOBIN 28.4 pg (27.0-33.0); MEAN CORPUSCULAR HGB CONC 32.2 g/dl (32.0-36.5); MEAN CORPUSCULAR VOLUME 88.1 fl (80.0-96.0); MONO # 0.8 10^3/uL (0.0-0.8); MONO % 10.5 % (2.0-8.0); NEUTROPHILS # 4.9 10^3/uL (1.5-8.5); NEUTROPHILS % 64.6 % (36.0-66.0); PLATELET COUNT, AUTOMATED 326 10^3/uL (150-450); RED BLOOD COUNT 4.79 10^6/uL (4.00-5.40); WHITE BLOOD COUNT 7.5 10^3/uL (4.0-10.0)
[2024-04-19 14:27] LABS: HEMATOCRIT 42.2 % (36.0-47.0)
[2024-04-19 14:28] LABS: ALBUMIN 3.9 G/DL (3.2-5.2); ALKALINE PHOSPHATASE 76 U/L (46-116); ALT/SGPT 21 U/L (7.0-40); AST/SGOT 15 U/L (<34); BILIRUBIN,TOTAL 0.5 MG/DL (0.3-1.2); BLOOD UREA NITROGEN 22 MG/DL (9-23); CALCIUM LEVEL 10.1 MG/DL (8.3-10.6); CARBON DIOXIDE LEVEL 28 MMOL/L (20-31); CHLORIDE LEVEL 102 MMOL/L (98-107); CHOLESTEROL LEVEL 169 MG/DL (<200); CREATININE FOR GFR 0.91 MG/DL (0.55-1.30); GLOMERULAR FILTRATION RATE > 60.0 (>32); GLUCOSE, FASTING 98 MG/DL (74-106); HDL CHOLESTEROL 40.2 MG/DL (>40); LDL CHOLESTEROL 89.8 MG/DL (<100); NON-HDL-C 128.8 MG/DL; POTASSIUM SERUM 4.8 MMOL/L (3.5-5.1); SODIUM LEVEL 137 MMOL/L (136-145); TOTAL PROTEIN 7.1 G/DL (5.7-8.2); TRIGLYCERIDES LEVEL 195 MG/DL (<150)
[2024-04-19 14:32] LABS: PTH INTACT 78.7 PG/ML (18.5-88.0)
[2024-04-19 14:33] LABS: FERRITIN 44.8 NG/ML (7.3-270.7); FREE T4 1.55 NG/DL (0.89-1.76); THYROID STIMULATING HORMONE 1.259 uIU/ML (0.55-4.78)
[2024-04-19 14:34] LABS: VITAMIN B12 LEVEL 433 PG/ML (211-911)
[2024-04-19 15:11] LABS: HEMOGLOBIN A1c 6.2 % (4.0-6.0)
== END ==
LOC: M PLALAB 09:49
PROVIDERS: ATTEND Family Medicine
DX: K76.0 Fatty (change of) liver, not elsewhere classified (principal); I50.32 Chronic diastolic (congestive) heart failure; E55.9 Vitamin D deficiency, unspecified; D50.9 Iron deficiency anemia, unspecified; R73.01 Impaired fasting glucose

== ENCOUNTER → 2024-05-11 | Outpatient (REF) | payer MEDICARE, MEDICAID ==
[~2024-05-11] MED LIST changes: +ARNU1INH INH; +BISO5TAB14 PO; +ELIQ5TAB PO
[2024-05-11 13:56] LABS: BASO % 0.5 % (0.0-1.0); EOS # 0.2 10^3/uL (0.0-0.5); EOS % 2.6 % (0.0-3.0); HEMATOCRIT 40.6 % (36.0-47.0); HEMOGLOBIN 13.5 g/dl (12.0-15.5); LYMPH # 1.9 10^3/uL (1.5-5.0); LYMPH % 24.2 % (24.0-44.0); MEAN CORPUSCULAR HGB CONC 33.3 g/dl (32.0-36.5); MEAN CORPUSCULAR VOLUME 87.1 fl (80.0-96.0); MONO # 0.7 10^3/uL (0.0-0.8); MONO % 9.2 % (2.0-8.0); NEUTROPHILS # 4.9 10^3/uL (1.5-8.5); PLATELET COUNT, AUTOMATED 316 10^3/uL (150-450); RED BLOOD COUNT 4.66 10^6/uL (4.00-5.40); WHITE BLOOD COUNT 7.8 10^3/uL (4.0-10.0)
[2024-05-11 14:02] LABS: ERYTHROCYTE SEDIMENTATION RATE 17 mm/hr (0-30)
[2024-05-11 14:20] LABS: C REACTIVE PROTEIN QUANTITATIV 1.6 MG/DL (<1.0)
[2024-05-11 14:22] LABS: ALBUMIN 3.7 G/DL (3.2-5.2); BILIRUBIN,TOTAL 0.5 MG/DL (0.3-1.2); CREATININE FOR GFR 0.96 MG/DL (0.55-1.30); GLOMERULAR FILTRATION RATE 59.4 (>32); POTASSIUM SERUM 4.6 MMOL/L (3.5-5.1); TOTAL PROTEIN 6.9 G/DL (5.7-8.2)
== END ==
LOC: M LABDRWAD 13:29
PROVIDERS: ATTEND Internal Medicine Rheumatology
DX: M06.09 Rheumatoid arthritis without rheumatoid factor, multiple sites (principal)

== ENCOUNTER 2024-05-14 23:08 | Emergency (ER) | payer MEDICARE, MEDICAID ==
[~2024-05-14] VITALS: Ht 160 cm; Wt 82.8 kg
[~2024-05-14 23:08] MED LIST changes: -ARNU1INH INH; -BISO5TAB14 PO; -ELIQ5TAB PO
[2024-05-14 23:42] LABS: BASO % 0.2 % (0.0-1.0); EOS % 0.3 % (0.0-3.0); HEMATOCRIT 37.1 % (36.0-47.0); HEMOGLOBIN 12.4 g/dl (12.0-15.5); LYMPH # 1.8 10^3/uL (1.5-5.0); LYMPH % 11.8 % (24.0-44.0); MEAN CORPUSCULAR HGB CONC 33.4 g/dl (32.0-36.5); MEAN CORPUSCULAR VOLUME 86.7 fl (80.0-96.0); MONO # 1.5 10^3/uL (0.0-0.8); MONO % 10.2 % (2.0-8.0); NEUTROPHILS # 11.5 10^3/uL (1.5-8.5); NEUTROPHILS % 77.1 % (36.0-66.0); PLATELET COUNT, AUTOMATED 289 10^3/uL (150-450); RED BLOOD COUNT 4.28 10^6/uL (4.00-5.40)
[2024-05-14 23:54] LABS: INR 1.33; PROTHROMBIN TIME 16.7 SECONDS (12.5-14.5)
[2024-05-15 00:41] LABS: PROCALCITONIN 0.09 ng/ml
[2024-05-15 00:43] LABS: ALBUMIN 3.8 G/DL (3.2-5.2); BILIRUBIN,DIRECT 0.2 MG/DL (<0.4); BILIRUBIN,TOTAL 0.6 MG/DL (0.3-1.2); CALCIUM LEVEL 8.6 MG/DL (8.3-10.6); CK-MB VALUE MASS 3.3 NG/ML (<3.6); CREATININE FOR GFR 1.18 MG/DL (0.55-1.30); GLOMERULAR FILTRATION RATE 46.8 (>32); MB/CK RELATIVE INDEX 1.26 (< OR =4); POTASSIUM SERUM 3.8 MMOL/L (3.5-5.1); TOTAL PROTEIN 7.1 G/DL (5.7-8.2)
[2024-05-15] MEDS: PIPERACILLIN/TAZOBACTAM SOD 4.5 GM in DEXTROSE 5% (D5W) ADV/MINI-BAG 50 ML IV ONE (00:49)
[2024-05-15] MEDS: NOREPINEPHRINE 4MG IN D5 250ML 4 MG in IV 1 EA IV SCH (01:02)
[2024-05-15] MEDS: FUROSEMIDE 100MG/10ML VIAL IV ONE (01:03)
[2024-05-15] MEDS ORDERED: ISOVUE-370 76% 100ML VIAL As Ordered ONE (01:04)
[2024-05-15] MEDS ORDERED: ARNU1INH INH (02:20)
[2024-05-15] MEDS ORDERED: ELIQ5TAB PO (02:20)
[2024-05-15] MEDS ORDERED: BISO5TAB14 PO (02:20)
[2024-05-15] MEDS ORDERED: HOME MED LIST COMPLETE! XX SCH (02:25)
[2024-05-15 03:09] LABS: CK-MB VALUE MASS 2.5 NG/ML (<3.6); MB/CK RELATIVE INDEX 1.12 (< OR =4)
[2024-05-15 06:30] VITALS: BP 100/53; TEMP 98; O2SAT 97
== END 2024-05-15 07:00 | disposition short-term general hospital (02) ==
LOC: EDBD 23:08 → M ED 23:08
DX: T81.11XA Postprocedural cardiogenic shock, initial encounter (principal); I50.22 Chronic systolic (congestive) heart failure; I45.10 Unspecified right bundle-branch block; E78.5 Hyperlipidemia, unspecified; E03.9 Hypothyroidism, unspecified; F41.9 Anxiety disorder, unspecified; Z79.01 Long term (current) use of anticoagulants; Z79.899 Other long term (current) drug therapy
CPT/HCPCS: 71045; 71275; 80053; 81001; 82248; 82550; 82553; 83605; 83690; 83880; 84145; 84484; 85025; 85610; 87040; 87086; 87486; 87581; 87633; 87798; 93005; 93041; 94760; 96365; 96374; 96375; 99285; J1940; J2543; Q9967

== ENCOUNTER → 2024-06-01 | Outpatient (CLI) | payer MEDICARE, MEDICAID ==
[~2024-06-01] MED LIST changes: +ARNU1INH INH; +BISO5TAB14 PO; +ELIQ5TAB PO
== END ==
LOC: M EKG 11:29
PROVIDERS: ATTEND Physician Assistant
DX: R42 Dizziness and giddiness (principal); R00.0 Tachycardia, unspecified

== ENCOUNTER 2024-06-08 13:00 | Outpatient (CLI) | payer MEDICARE, MEDICAID ==
[~2024-06-08] VITALS: Ht 154.9 cm; Wt 77.7 kg
[~2024-06-08 13:00] MED LIST changes: +ALBUTEROL SULFATE 2.5MG/0.5ML INH NEB SOLN INH PRN; +EPINEPHrine INJ 1 MG/ML 1ML AMP IM PRN; +diphenhydrAMINE 50MG/ML VIAL IV PRN; +methylPREDNISolone 125MG 2ML VIAL IV PRN
[2024-06-08 13:15] VITALS: BP 95/55; O2SAT 99
[2024-06-08] MEDS ORDERED: NS 1,000 ML IV SCH (13:30)
[2024-06-08] MEDS: ABATACEPT 750 MG OVER 30 MINUTES IV ONE (13:53)
[2024-06-08 14:20] VITALS: BP 106/56; O2SAT 99
== END 2024-06-08 14:30 ==
LOC: M INFU 13:00
PROVIDERS: ATTEND Internal Medicine Rheumatology
DX: M06.9 Rheumatoid arthritis, unspecified (principal)
CPT/HCPCS: 96365; J0129

== ENCOUNTER → 2024-06-18 | Outpatient (REF) | payer MEDICARE, MEDICAID ==
[~2024-06-18] MED LIST changes: -ALBUTEROL SULFATE 2.5MG/0.5ML INH NEB SOLN INH PRN; -EPINEPHrine INJ 1 MG/ML 1ML AMP IM PRN; +HYDR-3363 PO; -diphenhydrAMINE 50MG/ML VIAL IV PRN; -methylPREDNISolone 125MG 2ML VIAL IV PRN
[2024-06-18 19:11] LABS: HEMATOCRIT 41.8 % (36.0-47.0); HEMOGLOBIN 13.6 g/dl (12.0-15.5); MEAN CORPUSCULAR HEMOGLOBIN 29.1 pg (27.0-33.0); MEAN CORPUSCULAR HGB CONC 32.5 g/dl (32.0-36.5); MEAN CORPUSCULAR VOLUME 89.3 fl (80.0-96.0); PLATELET COUNT, AUTOMATED 349 10^3/uL (150-450); RED BLOOD COUNT 4.68 10^6/uL (4.00-5.40); WHITE BLOOD COUNT 8.6 10^3/uL (4.0-10.0)
[2024-06-18 19:38] LABS: CALCIUM LEVEL 9.7 MG/DL (8.3-10.6); CREATININE FOR GFR 0.96 MG/DL (0.55-1.30); GLOMERULAR FILTRATION RATE 59.4 (>32); POTASSIUM SERUM 5.5 MMOL/L (3.5-5.1)
== END ==
LOC: M LABDRWAD 17:23
PROVIDERS: ATTEND Physician Assistant
DX: I49.5 Sick sinus syndrome (principal)

== ENCOUNTER 2024-06-22 12:52 | Observation (INO) | payer MEDICARE, MEDICAID ==
[~2024-06-22] VITALS: Ht 157.5 cm; Wt 81.4 kg
[~2024-06-22 12:52] MED LIST changes: -HYDR-3363 PO
[2024-06-22] MEDS ORDERED: NS (Normal Saline) 0.9% 1,000 ML IV SCH (13:10)
[2024-06-22] MEDS ORDERED: ONDANSETRON 4MG 2ML VIAL As Ordered ONE (13:17)
[2024-06-22] MEDS ORDERED: propofoL 200 MG/20 ML VIAL As Ordered ONE (13:17)
[2024-06-22] MEDS ORDERED: LIDOCAINE 2% 100MG/5ML SDV (FOR ANES.) As Ordered ONE (13:18)
[2024-06-22] MEDS ORDERED: fentaNYL 100 MCG/2 ML INJECTION As Ordered ONE (14:31)
[2024-06-22] MEDS ORDERED: ACETAMINOPHEN 1000MG/100ML IV BAG As Ordered ONE (14:32)
[2024-06-22] MEDS: ceFAZolin SOD 2 GM in IV 1 EA IV ONE (14:55)
[2024-06-22] MEDS: AMIODARONE 150MG/3ML VIAL As Ordered ONE (17:01)
[2024-06-22] MEDS: ISOVUE-300 61% 100ML VIAL As Ordered ONE (17:01)
[2024-06-22] MEDS: LIDOCAINE 1% SDV 30ML VIAL As Ordered ONE (17:01)
[2024-06-22] MEDS ORDERED: fentaNYL 100 MCG/2 ML INJECTION IV PRN (17:15)
[2024-06-22] MEDS ORDERED: ONDANSETRON 4MG 2ML VIAL IV PRN (17:15)
[2024-06-22] MEDS: NS 250 ML IV SCH (17:15)
[2024-06-22] MEDS ORDERED: HYDROMORPHONE HCL 0.5 MG/ 0.5 ML SYRINGE IV PRN (17:15)
[2024-06-22] MEDS ORDERED: ACETAMINOPHEN 325 MG TAB PO PRN (17:20)
[2024-06-22] MEDS ORDERED: traMADol 50 MG TAB PO PRN (17:20)
[2024-06-22] MEDS: oxyCODONE 5MG TAB PO PRN (18:34)
[2024-06-22 20:00] VITALS: BP 146/65; TEMP 97.5; O2SAT 93
[2024-06-22] MEDS ORDERED: HYDR-3363 PO (20:44)
[2024-06-22] MEDS ORDERED: HOME MED LIST COMPLETE! XX SCH (20:45)
[2024-06-22] MEDS: ALBUTEROL 90 MCG/ACT 8GM HFA INHALER INH SCH (21:06)
[2024-06-22] MEDS: ceFAZolin SOD 1 GM in DEXTROSE 5% (D5W) ADV/MINI-BAG 50 ML IV SCH (21:40)
[2024-06-22] MEDS: LOSARTAN 50MG TABLET PO SCH (21:40)
[2024-06-22] MEDS: OMEPRAZOLE 20MG CAP PO SCH (21:41)
[2024-06-22] MEDS: SIMVASTATIN 10 MG TAB PO SCH (21:41)
[2024-06-22] MEDS: ALPRAZolam 0.25 MG TAB PO SCH (21:41)
[2024-06-22] MEDS: CARVedilol 6.25 MG TAB PO SCH (21:42)
[2024-06-22 23:00] VITALS: BP 108/55; TEMP 97.1; O2SAT 94
[2024-06-23 03:00] VITALS: BP 111/59; TEMP 96.6; O2SAT 93
[2024-06-23] MEDS: LEVOTHYROXINE 100MCG TABLET (0.1MG) PO SCH (05:41)
[2024-06-23 08:00] VITALS: BP 107/55; TEMP 97.2; O2SAT 95
[2024-06-23 10:00] VITALS: BP 107/55
[2024-06-23] MEDS: PARoxetine 20MG TABLET PO SCH (10:00)
[2024-06-23] MEDS: SPIRONOLACTONE 25 MG TAB PO SCH (10:01)
[2024-06-24] MEDS ORDERED: BACITRACIN OINTMENT 30GM TUBE As Ordered ONE (19:55)
[2024-06-24] MEDS ORDERED: MIDAZOLAM INJ 2MG/2ML VIAL As Ordered ONE (19:57)
[2024-06-24] MEDS ORDERED: ceFAZolin 1GM VIAL As Ordered ONE (20:28)
== END 2024-06-23 13:42 | disposition home or self-care (01) ==
LOC: M SDC 12:52 → M PCU 12:53 → UNDOADMOB 20:05 → M PCU 20:05 → INTOOBSV 20:05
PROVIDERS: ADMIT Internal Medicine Cardiovascular Disease; ATTEND Internal Medicine Cardiovascular Disease
DX: I49.5 Sick sinus syndrome (principal); R00.1 Bradycardia, unspecified; I45.5 Other specified heart block; I11.0 Hypertensive heart disease with heart failure; I50.9 Heart failure, unspecified; E78.5 Hyperlipidemia, unspecified; J45.909 Unspecified asthma, uncomplicated; G47.30 Sleep apnea, unspecified; I48.3 Typical atrial flutter; Z98.890 Other specified postprocedural states; E03.9 Hypothyroidism, unspecified; M19.90 Unspecified osteoarthritis, unspecified site; M06.9 Rheumatoid arthritis, unspecified; Z79.899 Other long term (current) drug therapy; Z79.01 Long term (current) use of anticoagulants
CPT/HCPCS: 33208; 71045; 71046; 76000; 93005; 94640; 96374; 96376; 97161; 97530; C1785; C1898; G0378; J0131; J0690; J1100; J2405; J3010

== ENCOUNTER 2024-06-24 16:08 | Day surgery (SDC) | payer MEDICARE, MEDICAID ==
[~2024-06-24] VITALS: Ht 157.5 cm; Wt 81.2 kg
[2024-06-24 07:30] VITALS: BP 151/77; TEMP 98.1; O2SAT 98
[~2024-06-24 16:08] MED LIST changes: +HYDR-3363 PO
[2024-06-24] MEDS ORDERED: BACITRACIN OINTMENT 30GM TUBE ONE (16:09)
[2024-06-24] MEDS: LR 1,000 ML IV SCH (19:01)
[2024-06-24] MEDS: ceFAZolin SOD 2 GM in IV 1 EA IV ONE (19:01)
[2024-06-24 19:30] VITALS: BP 151/77; TEMP 98.1; O2SAT 98
[2024-06-24] MEDS ORDERED: LIDOCAINE 1% SDV 30ML VIAL ONE (19:55)
[2024-06-24] MEDS ORDERED: propofoL 200 MG/20 ML VIAL ONE (19:57)
[2024-06-24] MEDS ORDERED: MIDAZOLAM INJ 2MG/2ML VIAL ONE (19:57)
[2024-06-24] MEDS ORDERED: fentaNYL 100 MCG/2 ML INJECTION ONE (19:58)
[2024-06-24] MEDS ORDERED: ceFAZolin 1GM VIAL ONE (20:28)
[2024-06-24] MEDS ORDERED: HYDROMORPHONE HCL 0.5 MG/ 0.5 ML SYRINGE IV PRN (21:25)
[2024-06-24] MEDS ORDERED: oxyCODONE 5MG TAB PO PRN (21:25)
[2024-06-24] MEDS ORDERED: ONDANSETRON 4MG 2ML VIAL IV PRN (21:25)
[2024-06-24] MEDS ORDERED: fentaNYL 100 MCG/2 ML INJECTION IV PRN (21:25)
[2024-06-24 22:15] VITALS: BP 129/57; TEMP 97.3; O2SAT 95
[2024-06-24] MEDS: ACETAMINOPHEN 325 MG TAB PO PRN (22:47)
[2024-06-24] MEDS ORDERED: HOME MED LIST COMPLETE! XX SCH (23:05)
[2024-06-24 23:43] VITALS: BP 120/58; TEMP 97.3; O2SAT 96
[2024-06-25 03:40] VITALS: BP 125/60; TEMP 97; O2SAT 98
[2024-06-25] MEDS: LEVOTHYROXINE 100MCG TABLET (0.1MG) PO SCH (05:47)
[2024-06-25] MEDS: ceFAZolin SOD 1 GM in DEXTROSE 5% (D5W) ADV/MINI-BAG 50 ML IV SCH (05:47)
[2024-06-25 08:11] VITALS: BP 125/61; TEMP 98; O2SAT 97
[2024-06-25] MEDS: ALBUTEROL 90 MCG/ACT 8GM HFA INHALER INH SCH (08:18)
[2024-06-25 09:31] VITALS: BP 127/73
[2024-06-25] MEDS: LOSARTAN 50MG TABLET PO SCH (09:31)
[2024-06-25] MEDS: PARoxetine 20MG TABLET PO SCH (09:31)
[2024-06-25] MEDS: OMEPRAZOLE 20MG CAP PO SCH (09:31)
[2024-06-25] MEDS: SPIRONOLACTONE 25 MG TAB PO SCH (09:32)
[2024-06-25 12:00] VITALS: BP 120/74; TEMP 97.9; O2SAT 98
[2024-06-25] MEDS: traMADol 50 MG TAB PO PRN (12:55)
[2024-06-25] MEDS ORDERED: SIMVASTATIN 10 MG TAB PO SCH (21:00)
[2024-06-25] MEDS ORDERED: ALPRAZolam 0.25 MG TAB PO SCH (21:00)
== END 2024-06-25 15:11 | disposition home or self-care (01) ==
LOC: M SDC 16:08 → M PCU 17:18 → M SDC 06-25 15:11
PROVIDERS: ATTEND Internal Medicine Cardiovascular Disease
DX: T82.120A Displacement of cardiac electrode, initial encounter (principal); I49.5 Sick sinus syndrome; Y71.2 Prosthetic and other implants, materials and accessory cardiovascular devices associated with adverse incidents; Z86.74 Personal history of sudden cardiac arrest; Z79.890 Hormone replacement therapy; Z79.899 Other long term (current) drug therapy; Z79.01 Long term (current) use of anticoagulants
CPT/HCPCS: 33226; 71045; 71046; 76000; 93005; 94640; 99490; J0690; J2250; J3010

== ENCOUNTER → 2024-07-15 | Outpatient (CLI) | payer MEDICARE, MEDICAID ==
[~2024-07-15] VITALS: Ht 157.5 cm; Wt 79.0 kg
[~2024-07-15] MED LIST changes: +ALBUTEROL SULFATE 2.5MG/0.5ML INH NEB SOLN INH PRN; +EPINEPHrine INJ 1 MG/ML 1ML AMP IM PRN; +diphenhydrAMINE 50MG/ML VIAL IV PRN; +methylPREDNISolone 125MG 2ML VIAL IV PRN
[2024-07-15 14:20] VITALS: BP 138/68; O2SAT 96
[2024-07-15] MEDS: ABATACEPT 750 MG OVER 30 MINUTES IV ONE (15:24)
[2024-07-15 15:56] VITALS: BP 129/81; O2SAT 95
== END ==
LOC: M INFU 14:09
PROVIDERS: ATTEND Internal Medicine Rheumatology
DX: M06.9 Rheumatoid arthritis, unspecified (principal)
CPT/HCPCS: 96365; J0129

== ENCOUNTER → 2024-07-19 | Outpatient (REF) | payer MEDICARE, MEDICAID ==
[~2024-07-19] MED LIST changes: -ALBUTEROL SULFATE 2.5MG/0.5ML INH NEB SOLN INH PRN; -EPINEPHrine INJ 1 MG/ML 1ML AMP IM PRN; -diphenhydrAMINE 50MG/ML VIAL IV PRN; -methylPREDNISolone 125MG 2ML VIAL IV PRN
[2024-07-19 13:22] LABS: BASO # 0.1 10^3/uL (0.0-0.2); BASO % 0.7 % (0.0-1.0); EOS # 0.2 10^3/uL (0.0-0.5); EOS % 2.6 % (0.0-3.0); HEMATOCRIT 43.4 % (36.0-47.0); LYMPH # 2.1 10^3/uL (1.5-5.0); LYMPH % 27.3 % (24.0-44.0); MEAN CORPUSCULAR HEMOGLOBIN 28.1 pg (27.0-33.0); MEAN CORPUSCULAR HGB CONC 32.3 g/dl (32.0-36.5); MEAN CORPUSCULAR VOLUME 87.1 fl (80.0-96.0); MONO # 0.8 10^3/uL (0.0-0.8); MONO % 10.2 % (2.0-8.0); NEUTROPHILS # 4.5 10^3/uL (1.5-8.5); NEUTROPHILS % 58.8 % (36.0-66.0); PLATELET COUNT, AUTOMATED 340 10^3/uL (150-450); RED BLOOD COUNT 4.98 10^6/uL (4.00-5.40); WHITE BLOOD COUNT 7.7 10^3/uL (4.0-10.0)
[2024-07-19 13:36] LABS: HEMOGLOBIN A1c 5.8 % (4.0-6.0)
[2024-07-19 13:51] LABS: ALKALINE PHOSPHATASE 74 U/L (35-104); ALT/SGPT 24 U/L (7.0-40); AST/SGOT 22 U/L (<34); BILIRUBIN,TOTAL 0.6 MG/DL (0.3-1.2); BLOOD UREA NITROGEN 19 MG/DL (9-23); CALCIUM LEVEL 9.5 MG/DL (8.3-10.6); CARBON DIOXIDE LEVEL 30 MMOL/L (20-31); CHLORIDE LEVEL 99 MMOL/L (98-107); CREATININE FOR GFR 0.89 MG/DL (0.55-1.30); GLOMERULAR FILTRATION RATE > 60.0 (>32); GLUCOSE, FASTING 105 MG/DL (74-106); IRON (FE) 39 UG/DL (50-170); PERCENT SATURATION 11.3 % (13.2-45.0); POTASSIUM SERUM 4.9 MMOL/L (3.5-5.1); PTH INTACT 108.7 PG/ML (18.5-88.0); SODIUM LEVEL 135 MMOL/L (136-145); TOTAL IRON BINDING CAPACITY 346 UG/DL (250-425); TOTAL PROTEIN 7.7 G/DL (5.7-8.2)
[2024-07-19 13:52] LABS: FREE T4 1.25 NG/DL (0.89-1.76)
[2024-07-19 13:53] LABS: FERRITIN 40.1 NG/ML (7.3-270.7); THYROID STIMULATING HORMONE 2.445 uIU/ML (0.55-4.78)
== END ==
LOC: M SFHCPLAZ 10:09
PROVIDERS: ATTEND Family Medicine
DX: D50.9 Iron deficiency anemia, unspecified (principal); I50.32 Chronic diastolic (congestive) heart failure; E55.9 Vitamin D deficiency, unspecified; R73.01 Impaired fasting glucose

== ENCOUNTER → 2024-08-05 | Outpatient (REF) | payer MEDICARE, MEDICAID ==
[2024-08-05 13:48] LABS: C REACTIVE PROTEIN QUANTITATIV 1.09 MG/DL (<1.0)
[2024-08-05 13:49] LABS: ALBUMIN 3.8 G/DL (3.2-5.2); ALKALINE PHOSPHATASE 67 U/L (35-104); ALT/SGPT 43 U/L (7.0-40); AST/SGOT 40 U/L (<34); BILIRUBIN,TOTAL 0.6 MG/DL (0.3-1.2); BLOOD UREA NITROGEN 21 MG/DL (9-23); CALCIUM LEVEL 9.1 MG/DL (8.3-10.6); CARBON DIOXIDE LEVEL 29 MMOL/L (20-31); CHLORIDE LEVEL 99 MMOL/L (98-107); CREATININE FOR GFR 0.79 MG/DL (0.55-1.30); GLOMERULAR FILTRATION RATE > 60.0 (>32); GLUCOSE, FASTING 103 MG/DL (74-106); POTASSIUM SERUM 4.6 MMOL/L (3.5-5.1); SODIUM LEVEL 139 MMOL/L (136-145)
[2024-08-05 13:55] LABS: BASO % 0.6 % (0.0-1.0); EOS # 0.2 10^3/uL (0.0-0.5); EOS % 2.8 % (0.0-3.0); HEMATOCRIT 39.6 % (36.0-47.0); HEMOGLOBIN 13.2 g/dl (12.0-15.5); LYMPH # 1.4 10^3/uL (1.5-5.0); LYMPH % 20.6 % (24.0-44.0); MEAN CORPUSCULAR HEMOGLOBIN 28.2 pg (27.0-33.0); MEAN CORPUSCULAR HGB CONC 33.3 g/dl (32.0-36.5); MEAN CORPUSCULAR VOLUME 84.6 fl (80.0-96.0); MONO # 0.6 10^3/uL (0.0-0.8); NEUTROPHILS # 4.5 10^3/uL (1.5-8.5); NEUTROPHILS % 66.7 % (36.0-66.0); PLATELET COUNT, AUTOMATED 289 10^3/uL (150-450); RED BLOOD COUNT 4.68 10^6/uL (4.00-5.40); WHITE BLOOD COUNT 6.8 10^3/uL (4.0-10.0)
[2024-08-05 14:00] LABS: ERYTHROCYTE SEDIMENTATION RATE 25 mm/hr (0-30)
== END ==
LOC: M SFHCRHEU 09:37
PROVIDERS: ATTEND Internal Medicine Rheumatology
DX: M06.09 Rheumatoid arthritis without rheumatoid factor, multiple sites (principal)

== ENCOUNTER 2024-08-17 08:07 | Outpatient (CLI) | payer MEDICARE, MEDICAID ==
[~2024-08-17] VITALS: Ht 157.5 cm; Wt 81.4 kg
[~2024-08-17 08:07] MED LIST changes: +ABATACEPT 750 MG OVER 30 MINUTES IV ONE; +ALBUTEROL SULFATE 2.5MG/0.5ML INH NEB SOLN INH PRN; +EPINEPHrine INJ 1 MG/ML 1ML AMP IM PRN; +diphenhydrAMINE 50MG/ML VIAL IV PRN; +methylPREDNISolone 125MG 2ML VIAL IV PRN
[2024-08-17 08:15] VITALS: BP 131/61; O2SAT 96
[2024-08-17] MEDS: ABATACEPT 750 MG OVER 30 MINUTES IV ONE (08:54)
[2024-08-17 09:30] VITALS: BP 140/70; O2SAT 100
== END 2024-08-17 09:30 ==
LOC: M INFU 08:07
PROVIDERS: ATTEND Internal Medicine Rheumatology
DX: M06.9 Rheumatoid arthritis, unspecified (principal)
CPT/HCPCS: 96365; J0129

== ENCOUNTER 2024-09-14 13:45 | Outpatient (CLI) | payer MEDICARE, MEDICAID ==
[~2024-09-14] VITALS: Ht 157.5 cm; Wt 81.3 kg
[~2024-09-14 13:45] MED LIST changes: -ABATACEPT 750 MG OVER 30 MINUTES IV ONE
[2024-09-14 13:51] VITALS: BP 124/59; O2SAT 98
[2024-09-14] MEDS: ABATACEPT 750 MG OVER 30 MINUTES IV ONE (14:31)
[2024-09-14 15:00] VITALS: BP 109/58; O2SAT 97
== END 2024-09-14 15:00 ==
LOC: M INFU 13:45
PROVIDERS: ATTEND Internal Medicine Rheumatology
DX: M06.9 Rheumatoid arthritis, unspecified (principal)
CPT/HCPCS: 96365; J0129

== ENCOUNTER → 2024-09-16 | Outpatient (REF) | payer MEDICARE, MEDICAID ==
[~2024-09-16] MED LIST changes: -ALBUTEROL SULFATE 2.5MG/0.5ML INH NEB SOLN INH PRN; -EPINEPHrine INJ 1 MG/ML 1ML AMP IM PRN; -diphenhydrAMINE 50MG/ML VIAL IV PRN; -methylPREDNISolone 125MG 2ML VIAL IV PRN
[2024-09-16 19:15] LABS: BASO % 0.5 % (0.0-1.0); EOS # 0.2 10^3/uL (0.0-0.5); EOS % 2.1 % (0.0-3.0); HEMATOCRIT 43.4 % (36.0-47.0); HEMOGLOBIN 13.9 g/dl (12.0-15.5); LYMPH # 2.3 10^3/uL (1.5-5.0); LYMPH % 30.3 % (24.0-44.0); MEAN CORPUSCULAR HEMOGLOBIN 27.1 pg (27.0-33.0); MEAN CORPUSCULAR VOLUME 84.8 fl (80.0-96.0); MONO # 0.5 10^3/uL (0.0-0.8); MONO % 6.5 % (2.0-8.0); NEUTROPHILS # 4.6 10^3/uL (1.5-8.5); NEUTROPHILS % 60.3 % (36.0-66.0); PLATELET COUNT, AUTOMATED 301 10^3/uL (150-450); RED BLOOD COUNT 5.12 10^6/uL (4.00-5.40); WHITE BLOOD COUNT 7.7 10^3/uL (4.0-10.0)
[2024-09-16 19:29] LABS: ALBUMIN 4.1 G/DL (3.2-5.2); ALKALINE PHOSPHATASE 74 U/L (35-104); ALT/SGPT 40 U/L (7.0-40); AST/SGOT 39 U/L (<34); BILIRUBIN,TOTAL 0.4 MG/DL (0.3-1.2); BLOOD UREA NITROGEN 22 MG/DL (9-23); C REACTIVE PROTEIN QUANTITATIV 0.85 MG/DL (<1.0); CALCIUM LEVEL 9.6 MG/DL (8.3-10.6); CARBON DIOXIDE LEVEL 30 MMOL/L (20-31); CHLORIDE LEVEL 100 MMOL/L (98-107); CREATININE FOR GFR 0.95 MG/DL (0.55-1.30); GLOMERULAR FILTRATION RATE > 60.0 (>32); GLUCOSE, FASTING 67 MG/DL (74-106); POTASSIUM SERUM 4.4 MMOL/L (3.5-5.1); SODIUM LEVEL 140 MMOL/L (136-145); TOTAL PROTEIN 7.5 G/DL (5.7-8.2)
[2024-09-16 20:21] LABS: ERYTHROCYTE SEDIMENTATION RATE 36 mm/hr (0-30)
== END ==
LOC: M LABDRWAD 17:30
PROVIDERS: ATTEND Internal Medicine Rheumatology
DX: M06.09 Rheumatoid arthritis without rheumatoid factor, multiple sites (principal)

== ENCOUNTER → 2024-09-16 | Outpatient (REF) | payer MEDICARE, MEDICAID ==
[2024-09-16 19:15] LABS: BASO # 0.1 10^3/uL (0.0-0.2); BASO % 0.8 % (0.0-1.0); EOS # 0.2 10^3/uL (0.0-0.5); EOS % 2.3 % (0.0-3.0); HEMATOCRIT 43.1 % (36.0-47.0); HEMOGLOBIN 13.9 g/dl (12.0-15.5); LYMPH # 2.3 10^3/uL (1.5-5.0); LYMPH % 29.2 % (24.0-44.0); MEAN CORPUSCULAR HEMOGLOBIN 27.3 pg (27.0-33.0); MEAN CORPUSCULAR HGB CONC 32.3 g/dl (32.0-36.5); MEAN CORPUSCULAR VOLUME 84.5 fl (80.0-96.0); MONO # 0.5 10^3/uL (0.0-0.8); MONO % 6.8 % (2.0-8.0); NEUTROPHILS # 4.8 10^3/uL (1.5-8.5); NEUTROPHILS % 60.5 % (36.0-66.0); PLATELET COUNT, AUTOMATED 309 10^3/uL (150-450); WHITE BLOOD COUNT 7.8 10^3/uL (4.0-10.0)
[2024-09-16 19:31] LABS: ALBUMIN 4.1 G/DL (3.2-5.2); ALKALINE PHOSPHATASE 74 U/L (35-104); ALT/SGPT 41 U/L (7.0-40); AST/SGOT 39 U/L (<34); BILIRUBIN,TOTAL 0.4 MG/DL (0.3-1.2); BLOOD UREA NITROGEN 21 MG/DL (9-23); CALCIUM LEVEL 9.7 MG/DL (8.3-10.6); CARBON DIOXIDE LEVEL 30 MMOL/L (20-31); CHLORIDE LEVEL 101 MMOL/L (98-107); CHOLESTEROL LEVEL 173 MG/DL (<200); CHOLESTEROL RISK RATIO 3.79 (<5); CREATININE FOR GFR 0.95 MG/DL (0.55-1.30); FERRITIN 32.5 NG/ML (7.3-270.7); GLOMERULAR FILTRATION RATE > 60.0 (>32); GLUCOSE, FASTING 67 MG/DL (74-106); HDL CHOLESTEROL 45.6 MG/DL (>40); LDL CHOLESTEROL 87.8 MG/DL (<100); MAGNESIUM LEVEL 2.1 MG/DL (1.8-2.4); NON-HDL-C 127.4 MG/DL; POTASSIUM SERUM 4.1 MMOL/L (3.5-5.1); SODIUM LEVEL 137 MMOL/L (136-145); THYROID STIMULATING HORMONE 2.835 uIU/ML (0.55-4.78); TOTAL PROTEIN 7.6 G/DL (5.7-8.2); TRIGLYCERIDES LEVEL 198 MG/DL (<150)
[2024-09-16 19:33] LABS: FREE T4 1.28 NG/DL (0.89-1.76)
[2024-09-16 20:21] LABS: ERYTHROCYTE SEDIMENTATION RATE 36 mm/hr (0-30)
== END ==
LOC: M LABDRWAD 17:27
PROVIDERS: ATTEND Family Medicine
DX: I11.0 Hypertensive heart disease with heart failure (principal); E78.2 Mixed hyperlipidemia; D50.9 Iron deficiency anemia, unspecified; M06.09 Rheumatoid arthritis without rheumatoid factor, multiple sites

== ENCOUNTER 2024-10-11 08:22 | Outpatient (CLI) | payer MEDICARE, MEDICAID ==
[~2024-10-11] VITALS: Ht 158.8 cm; Wt 80.0 kg
[~2024-10-11 08:22] MED LIST changes: +ALBUTEROL SULFATE 2.5MG/0.5ML INH CONCENTRATE NEB SOLN INH PRN; +EPINEPHrine INJ 1 MG/ML 1ML AMP IM PRN; +diphenhydrAMINE 50MG/ML VIAL IV PRN; +methylPREDNISolone 125MG 2ML VIAL IV PRN
[2024-10-11 08:35] VITALS: BP 130/65; O2SAT 97
[2024-10-11] MEDS: IRON SUCROSE 500 MG in NS 250 ML OVER 4 HRS IV ONE (09:09)
[2024-10-11 10:24] VITALS: BP 112/60; O2SAT 96
[2024-10-11 11:25] VITALS: BP 136/55; O2SAT 97
[2024-10-11 12:35] VITALS: BP 138/66; O2SAT 97
[2024-10-11 13:32] VITALS: BP 116/53; O2SAT 96
== END 2024-10-11 13:40 ==
LOC: M INFU 08:22
PROVIDERS: ATTEND Family Medicine
DX: D50.9 Iron deficiency anemia, unspecified (principal)
CPT/HCPCS: 96365; 96366; J1756

== ENCOUNTER 2024-10-14 13:10 | Outpatient (CLI) | payer MEDICARE, MEDICAID ==
[~2024-10-14] VITALS: Ht 157.5 cm; Wt 79.5 kg
[2024-10-14 13:05] VITALS: BP 137/67; O2SAT 100
[~2024-10-14 13:10] MED LIST changes: +ABATACEPT 750 MG OVER 30 MINUTES IV ONE
[2024-10-14] MEDS: ABATACEPT 750 MG OVER 30 MINUTES IV ONE (13:49)
[2024-10-14 14:20] VITALS: BP 155/70; O2SAT 99
== END 2024-10-14 14:20 ==
LOC: M INFU 13:10
PROVIDERS: ATTEND Internal Medicine Rheumatology
DX: M06.9 Rheumatoid arthritis, unspecified (principal)
CPT/HCPCS: 96365; J0129

== ENCOUNTER 2024-10-18 08:33 | Outpatient (CLI) | payer MEDICARE, MEDICAID ==
[~2024-10-18] VITALS: Ht 157.5 cm; Wt 79.5 kg
[~2024-10-18 08:33] MED LIST changes: -ABATACEPT 750 MG OVER 30 MINUTES IV ONE
[2024-10-18 08:35] VITALS: BP 128/89; O2SAT 97
[2024-10-18] MEDS: IRON SUCROSE 500 MG in NS 250 ML OVER 4 HRS IV ONE (09:06)
[2024-10-18 09:52] VITALS: BP 110/69; O2SAT 98
[2024-10-18 11:00] VITALS: BP 122/62; O2SAT 98
[2024-10-18 12:00] VITALS: BP 129/64; O2SAT 97
[2024-10-18 13:10] VITALS: BP 124/60; O2SAT 96
== END 2024-10-18 13:10 ==
LOC: M INFU 08:33
PROVIDERS: ATTEND Family Medicine
DX: D50.9 Iron deficiency anemia, unspecified (principal)
CPT/HCPCS: 96365; 96366; J1756

== ENCOUNTER 2024-11-09 14:00 | Outpatient (CLI) | payer MEDICARE, MEDICAID ==
[~2024-11-09] VITALS: Ht 157.5 cm; Wt 79.6 kg
[2024-11-09 14:10] VITALS: BP 138/67; O2SAT 99
[2024-11-09] MEDS: ABATACEPT 750 MG OVER 30 MINUTES IV ONE (15:22)
[2024-11-09 16:00] VITALS: BP 126/57; O2SAT 98
== END 2024-11-09 15:50 ==
LOC: M INFU 14:00
PROVIDERS: ATTEND Internal Medicine Rheumatology
DX: M06.9 Rheumatoid arthritis, unspecified (principal)
CPT/HCPCS: 96365; J0129

== ENCOUNTER → 2024-11-15 | Outpatient (CLI) | payer MEDICARE, MEDICAID ==
[~2024-11-15] MED LIST changes: -ALBUTEROL SULFATE 2.5MG/0.5ML INH CONCENTRATE NEB SOLN INH PRN; -EPINEPHrine INJ 1 MG/ML 1ML AMP IM PRN; -diphenhydrAMINE 50MG/ML VIAL IV PRN; -methylPREDNISolone 125MG 2ML VIAL IV PRN
== END ==
LOC: M WHC 09:48
PROVIDERS: ATTEND Family Medicine
DX: Z12.31 Encounter for screening mammogram for malignant neoplasm of breast (principal); R92.333 Mammographic heterogeneous density, bilateral breasts

== ENCOUNTER → 2025-01-25 | Outpatient (REF) | payer MEDICARE, MEDICAID ==
[2025-01-25 14:21] LABS: BASO # 0.1 10^3/uL (0.0-0.2); BASO % 0.6 % (0.0-1.0); EOS # 0.3 10^3/uL (0.0-0.5); EOS % 4.2 % (0.0-3.0); LYMPH # 1.5 10^3/uL (1.5-5.0); LYMPH % 19.8 % (24.0-44.0); MONO # 0.6 10^3/uL (0.0-0.8); MONO % 8.0 % (2.0-8.0); NEUTROPHILS # 5.2 10^3/uL (1.5-8.5); NEUTROPHILS % 67.1 % (36.0-66.0); PLATELET COUNT, AUTOMATED 279 10^3/uL (150-450)
[2025-01-25 14:30] LABS: ALT/SGPT 28.0 U/L (7.0-40); AST/SGOT 28.0 U/L (<34); CALCIUM LEVEL 9.2 MG/DL (8.3-10.6); CARBON DIOXIDE LEVEL 28.0 MMOL/L (20-31); CHLORIDE LEVEL 102.0 MMOL/L (98-107); CREATININE FOR GFR 0.93 MG/DL (0.55-1.30); GLOMERULAR FILTRATION RATE 61.8 (>32); POTASSIUM SERUM 4.4 MMOL/L (3.5-5.1); SODIUM LEVEL 141.0 MMOL/L (136-145)
[2025-01-25 14:31] LABS: IRON (FE) 78.0 UG/DL (50-170); PERCENT SATURATION 25.2 % (13.2-45.0)
[2025-01-25 14:33] LABS: FREE T4 1.18 NG/DL (0.89-1.76)
[2025-01-25 14:36] LABS: PTH INTACT 85.4 PG/ML (18.5-88.0)
[2025-01-25 14:47] LABS: ESTIMATED AVERAGE GLUCOSE 128.0 MG/DL (60-110)
== END ==
LOC: M LABDRWAD 13:35
PROVIDERS: ATTEND Family Medicine
DX: D50.9 Iron deficiency anemia, unspecified (principal); I50.32 Chronic diastolic (congestive) heart failure; R73.01 Impaired fasting glucose; M06.09 Rheumatoid arthritis without rheumatoid factor, multiple sites; E55.9 Vitamin D deficiency, unspecified

== ENCOUNTER → 2025-01-25 | Outpatient (REF) | payer MEDICARE, MEDICAID ==
[2025-01-25 14:33] LABS: BASO # 0.1 10^3/uL (0.0-0.2); BASO % 0.7 % (0.0-1.0); EOS # 0.3 10^3/uL (0.0-0.5); EOS % 3.8 % (0.0-3.0); LYMPH # 1.5 10^3/uL (1.5-5.0); LYMPH % 19.9 % (24.0-44.0); MONO # 0.6 10^3/uL (0.0-0.8); MONO % 8.1 % (2.0-8.0); NEUTROPHILS # 5.1 10^3/uL (1.5-8.5); NEUTROPHILS % 67.0 % (36.0-66.0); PLATELET COUNT, AUTOMATED 287 10^3/uL (150-450)
[2025-01-25 14:36] LABS: C REACTIVE PROTEIN QUANTITATIV 1.26 MG/DL (<1.0)
[2025-01-25 14:37] LABS: ALT/SGPT 28.0 U/L (7.0-40); AST/SGOT 28.0 U/L (<34); CALCIUM LEVEL 9.2 MG/DL (8.3-10.6); CARBON DIOXIDE LEVEL 28.0 MMOL/L (20-31); CHLORIDE LEVEL 101.0 MMOL/L (98-107); CREATININE FOR GFR 0.92 MG/DL (0.55-1.30); ERYTHROCYTE SEDIMENTATION RATE 20 mm/hr (0-30); GLOMERULAR FILTRATION RATE 62.6 (>32); POTASSIUM SERUM 4.4 MMOL/L (3.5-5.1); SODIUM LEVEL 141.0 MMOL/L (136-145)
== END ==
LOC: M SFHCADAM 08:54
PROVIDERS: ATTEND Internal Medicine Rheumatology
DX: M06.09 Rheumatoid arthritis without rheumatoid factor, multiple sites (principal)

== ENCOUNTER → 2025-04-19 | Outpatient (REF) | payer MEDICARE, MEDICAID ==
[2025-04-19 14:15] LABS: BASO # 0.0 10^3/uL (0.0-0.2); BASO % 0.6 % (0.0-1.0); EOS # 0.5 10^3/uL (0.0-0.5); EOS % 6.5 % (0.0-3.0); LYMPH # 1.6 10^3/uL (1.5-5.0); LYMPH % 22.6 % (24.0-44.0); MONO # 0.9 10^3/uL (0.0-0.8); MONO % 12.4 % (2.0-8.0); NEUTROPHILS # 4.1 10^3/uL (1.5-8.5); NEUTROPHILS % 57.3 % (36.0-66.0); PLATELET COUNT, AUTOMATED 265 10^3/uL (150-450)
[2025-04-19 14:28] LABS: ERYTHROCYTE SEDIMENTATION RATE 25 mm/hr (0-30)
[2025-04-19 14:40] LABS: C REACTIVE PROTEIN QUANTITATIV 0.95 MG/DL (<1.0)
[2025-04-19 14:41] LABS: ALT/SGPT 26.0 U/L (7.0-40); AST/SGOT 23.0 U/L (<34); CALCIUM LEVEL 9.4 MG/DL (8.3-10.6); CARBON DIOXIDE LEVEL 30.0 MMOL/L (20-31); CHLORIDE LEVEL 97.0 MMOL/L (98-107); CREATININE FOR GFR 1.11 MG/DL (0.55-1.30); GLOMERULAR FILTRATION RATE 49.6 (>32); POTASSIUM SERUM 4.8 MMOL/L (3.5-5.1); SODIUM LEVEL 137.0 MMOL/L (136-145)
== END ==
LOC: M SFHCADAM 09:53
PROVIDERS: ATTEND Internal Medicine Rheumatology
DX: M06.09 Rheumatoid arthritis without rheumatoid factor, multiple sites (principal); M81.0 Age-related osteoporosis without current pathological fracture; M15.0 Primary generalized (osteo)arthritis; Z79.899 Other long term (current) drug therapy; H04.203 Unspecified epiphora, bilateral

== ENCOUNTER → 2025-05-13 | Outpatient (CLI) | payer MEDICARE, MEDICAID | LOC: M PLAIMG 11:04 | PROVIDERS: ATTEND Family Medicine | DX: M25.531 Pain in right wrist (principal); W18.30XA Fall on same level, unspecified, initial encounter; M25.561 Pain in right knee; M19.031 Primary osteoarthritis, right wrist ==

== ENCOUNTER → 2025-06-14 | Outpatient (REF) | payer MEDICARE, MEDICAID ==
[2025-06-14 15:37] LABS: BASO # 0.1 10^3/uL (0.0-0.2); BASO % 1.1 % (0.0-1.0); EOS # 0.6 10^3/uL (0.0-0.5); EOS % 9.1 % (0.0-3.0); LYMPH # 1.6 10^3/uL (1.5-5.0); LYMPH % 24.8 % (24.0-44.0); MONO # 0.8 10^3/uL (0.0-0.8); MONO % 12.7 % (2.0-8.0); NEUTROPHILS # 3.3 10^3/uL (1.5-8.5); NEUTROPHILS % 51.8 % (36.0-66.0); PLATELET COUNT, AUTOMATED 276 10^3/uL (150-450)
[2025-06-14 15:50] LABS: ESTIMATED AVERAGE GLUCOSE 123.0 MG/DL (60-110)
[2025-06-14 16:10] LABS: ALT/SGPT 27.0 U/L (7.0-40); AST/SGOT 26.0 U/L (<34); C REACTIVE PROTEIN QUANTITATIV 1.45 MG/DL (<1.0); CALCIUM LEVEL 9.6 MG/DL (8.3-10.6); CARBON DIOXIDE LEVEL 30.0 MMOL/L (20-31); CHLORIDE LEVEL 99.0 MMOL/L (98-107); CHOLESTEROL LEVEL 156.0 MG/DL (<200); CHOLESTEROL RISK RATIO 4.12 (<5); CREATININE FOR GFR 1.07 MG/DL (0.55-1.30); GLOMERULAR FILTRATION RATE 51.9 (>32); LDL CHOLESTEROL 81.0 MG/DL (<100); MAGNESIUM LEVEL 2.1 MG/DL (1.8-2.4); NON-HDL-C 118.2 MG/DL; POTASSIUM SERUM 4.6 MMOL/L (3.5-5.1); PTH INTACT 76.6 PG/ML (18.5-88.0); SODIUM LEVEL 138.0 MMOL/L (136-145); TRIGLYCERIDES LEVEL 186.0 MG/DL (<150)
[2025-06-14 16:11] LABS: TOTAL 25(OH) VITAMIN D 33.3 NG/ML (20.0-100.0)
[2025-06-14 16:12] LABS: FREE T4 1.33 NG/DL (0.89-1.76)
== END ==
LOC: M SFHCPLAZ 09:12
PROVIDERS: ATTEND Family Medicine
DX: D50.9 Iron deficiency anemia, unspecified (principal); I50.32 Chronic diastolic (congestive) heart failure; E55.9 Vitamin D deficiency, unspecified; R73.01 Impaired fasting glucose; E78.2 Mixed hyperlipidemia; K74.00 Hepatic fibrosis, unspecified; M06.9 Rheumatoid arthritis, unspecified

== ENCOUNTER → 2025-06-22 | Outpatient (CLI) | payer MEDICARE, MEDICAID | LOC: M PLAIMG 10:24 | PROVIDERS: ATTEND Physician Assistant | DX: I77.810 Thoracic aortic ectasia (principal); I08.0 Rheumatic disorders of both mitral and aortic valves ==